=== PATIENT | female | born 1935 | race Caucasian/White ===

== ENCOUNTER 2017-10-01 19:52 | Emergency (ER) | payer MEDICARE, BC, SELFPAY ==
[2017-10-01] VITALS (8 sets, daily range): BP systolic 72–140; BP diastolic 38–85; PULSE 64–85; RESP 14–17; TEMP 35.7; O2SAT 93–96; BMI 20.9
[2017-10-01] MEDS: 0.9% Normal Saline 1,000 ML 1000 ML IV (21:06)
[2017-10-01] MEDS: Cefazolin 1 GM/50 ML BAG IV (21:06)
[2017-10-01] MEDS: Diphth,Pertuss(Acell),Tet Vac 0.5 ML Vial IM (21:09)
[2017-10-01] MEDS: oxyCODONE 5 MG Tablet PO (21:25)
--- NOTE | 2017-10-01 22:49 | ED.VISSUMM ---
- ER Visit Summary Date of Service: 10/01/17 Chief Complaint: Right forearm laceration History of Present Illness: The patient is a 81 F, [id number], who sustained a skin tear/laceration to her right forearm on a shoebox in her closet at home. She states that she has very thin skin and is prone to superficial skin tears with very minimal trauma. She was taking off her shoes tonight when she essentially slipped forward and struck her forearm on the corner of a box. She sustained a large full-thickness laceration to her right volar forearm. She denies any other injuries. She did not hit her head or lose consciousness. On arrival, she was somewhat hypotensive but she states that this is from the site of her own blood which makes her feel faint. He denies any chest pain or confusion. This was witnessed and she did not completely fall. Physical Examination: She has no signs of head trauma. Neck is supple. Heart tones are regular and without murmur. Lungs are clear bilaterally. Abdomen is soft and nontender. She has an 18 cm full-thickness laceration on the volar aspect of her right midshaft forearm. The wound edges are somewhat irregular and there is avulsion of some of the skin. I can visualize a few flexor tendons underneath but there is no evidence of flexor tendon laceration and the tendon sheaths appear intact. There is no apparent laceration of the muscle. She has another distinct skin tear approximately 4 cm on the posterior aspect that is superficial. He has a strong distal pulse. No trouble flexing or extending any of her fingers. No coldness in her hand. Normal cap refill distally. Test Results: None performed Emergency Department Course and Treatment: She was given IV fluids here and observed. Her blood pressure returned to normal and remained there for several hours. I discussed the case with Dr. Carl De Oliveira who recommended follow-up with plastics or general surgery. I then discussed the case with Dr. Carey to arrange follow-up for Wednesday at 10 AM in his office for a wound check. I spoke at length with her regarding the high risk nature of this wound. It is fairly large and her skin is quite thin so she is at high risk for infection and/or poor cosmetic outcome. Verbal informed consent was obtained from the patient and her and the decision was made to proceed with irrigation and wound repair here in the emergency department. I instilled approximately 10 cc of lidocaine without epinephrine locally infiltrated. I maintain full sterile precautions and irrigated it over a sterile basin with a full 3 L of sterile normal saline. I examined the wound cavity under direct lighting with good hemostasis and there is no evidence of underlying neurotendinous injury. She still has a normal distal neurovascular examination. With an coding assistant wearing sterile gloves, the wound edges were approximated and I placed approximately 12 horizontal mattress sutures with fairly good alignment of the wound edges. I then placed Steri-Strips over the sutures. I placed Steri-Strips over the other wound on the aspect of her forearm. She was given IV Ancef during this procedure and I will place her on Keflex for at home. On reexamination, she is well appearing and not in any distress. She is not lightheaded at all and her blood pressure is normal. She has no evidence of any other injuries and no bony tenderness of her forearm. The impact was quite mild in nature so I do not feel she needs an x-ray. There is no evidence of foreign body. I instructed her on dressing changes and gave her all the supplies for dressing changes as well as bacitracin to use over the weekend. She will see Dr. Carey Wednesday but she was given strict instructions to return back to the emergency department if she develops any increased pain, paresthesias, wound drainage, redness, fever, or any other signs of infection/neurovascular compromise. Treatment Plan: See Dr. Carey Wednesday Disposition: Home stable condition Impression: Initial encounter for complex 18 cm right forearm laceration This note was generated with Nabto dictation software. It may contain incorrect words, spelling, and punctuation that were not noted in review of the chart prior to signing ED Disposition - Plan for ED Patient: Chief Complaint: Fall Instructions: ED Laceration All Prescriptions: Hydrocodone Bitart/Apap 5-325 [[place] 5/325] 1 tablet PO Q6H PRN PRN 3 Days #12 tablet PRN Reason: Pain Cephalexin [Keflex] 500 mg PO Q6 7 Days #40 capsule Referrals: Clive Martinez MD [STAFF PHYSICIAN] - 10/04/17 10:00 am
--- NOTE | 2017-10-01 22:54 | ED.DCSUM_ITS ---
- ER Visit Summary Date of Service: 10/01/17 Chief Complaint: Right forearm laceration History of Present Illness: The patient is a 81 F, [id number], who sustained a skin tear/laceration to her right forearm on a shoebox in her closet at home. She states that she has very thin skin and is prone to superficial skin tears with very minimal trauma. She was taking off her shoes tonight when she essentially slipped forward and struck her forearm on the corner of a box. She sustained a large full-thickness laceration to her right volar forearm. She denies any other injuries. She did not hit her head or lose consciousness. On arrival, she was somewhat hypotensive but she states that this is from the site of her own blood which makes her feel faint. He denies any chest pain or confusion. This was witnessed and she did not completely fall. Physical Examination: She has no signs of head trauma. Neck is supple. Heart tones are regular and without murmur. Lungs are clear bilaterally. Abdomen is soft and nontender. She has an 18 cm full-thickness laceration on the volar aspect of her right midshaft forearm. The wound edges are somewhat irregular and there is avulsion of some of the skin. I can visualize a few flexor tendons underneath but there is no evidence of flexor tendon laceration and the tendon sheaths appear intact. There is no apparent laceration of the muscle. She has another distinct skin tear approximately 4 cm on the posterior aspect that is superficial. He has a strong distal pulse. No trouble flexing or extending any of her fingers. No coldness in her hand. Normal cap refill distally. Test Results: None performed Emergency Department Course and Treatment: She was given IV fluids here and observed. Her blood pressure returned to normal and remained there for several hours. I discussed the case with Dr. Carl De Oliveira who recommended follow-up with plastics or general surgery. I then discussed the case with Dr. Carey to arrange follow-up for Wednesday at 10 AM in his office for a wound check. I spoke at length with her regarding the high risk nature of this wound. It is fairly large and her skin is quite thin so she is at high risk for infection and /or poor cosmetic outcome. Verbal informed consent was obtained from the patient and her and the decision was made to proceed with irrigation and wound repair here in the emergency department. I instilled approximately 10 cc of lidocaine without epinephrine locally infiltrated. I maintain full sterile precautions and irrigated it over a sterile basin with a full 3 L of sterile normal saline. I examined the wound cavity under direct lighting with good hemostasis and there is no evidence of underlying neurotendinous injury. She still has a normal distal neurovascular examination. With an bar assistant wearing sterile gloves, the wound edges were approximated and I placed approximately 12 horizontal mattress sutures with fairly good alignment of the wound edges. I then placed Steri-Strips over the sutures. I placed Steri- Strips over the other wound on the aspect of her forearm. She was given IV Ancef during this procedure and I will place her on Keflex for at home. On reexamination, she is well appearing and not in any distress. She is not lightheaded at all and her blood pressure is normal. She has no evidence of any other injuries and no bony tenderness of her forearm. The impact was quite mild in nature so I do not feel she needs an x-ray. There is no evidence of foreign body. I instructed her on dressing changes and gave her all the supplies for dressing changes as well as bacitracin to use over the weekend. She will see Dr. Carey Wednesday but she was given strict instructions to return back to the emergency department if she develops any increased pain, paresthesias, wound drainage, redness, fever, or any other signs of infection/ neurovascular compromise. Treatment Plan: See Dr. Carey Wednesday Disposition: Home stable condition Impression: Initial encounter for complex 18 cm right forearm laceration This note was generated with Nanapi dictation software. It may contain incorrect words, spelling, and punctuation that were not noted in review of the chart prior to signing ED Disposition - Plan for ED Patient: Chief Complaint: Fall Instructions: ED Laceration All Prescriptions: Hydrocodone Bitart/Apap 5-325 [[place] 5/325] 1 tablet PO Q6H PRN PRN 3 Days #12 tablet PRN Reason: Pain Cephalexin [Keflex] 500 mg PO Q6 7 Days #40 capsule Referrals: Clive Martinez MD [STAFF PHYSICIAN] - 10/04/17 10:00 am
== END 2017-10-01 23:42 | disposition home or self-care (01) ==
LOC: ED 20:23
PROVIDERS: Emergency Provider Emergency Medicine; Family Provider Family Medicine; PCP Family Medicine
DX: S51.811A Laceration without foreign body of right forearm, initial encounter (principal); Z79.82 Long term (current) use of aspirin; Z79.899 Other long term (current) drug therapy; W01.118A Fall on same level from slipping, tripping and stumbling with subsequent striking against other sharp object, initial encounter; Y93.89 Activity, other specified; Y92.003 Bedroom of unspecified non-institutional (private) residence as the place of occurrence of the external cause; Y99.8 Other external cause status
CPT/HCPCS: 12005; 90715; 96361; 96365; 99284; J7030; A4216

== ENCOUNTER 2017-11-09 13:15 | Emergency (ER) | payer MEDICARE, BC, SELFPAY ==
--- NOTE | 2017-11-09 13:15 | DT_ITS ---
This patient was seen during an EMR downtime November 08, 2017 - November 15, 2017. This patient may have a combination of paper and electronic documentation or all paper documentation. All documentation is viewable within the e-chart portion of [employer] for each patient visit.
--- NOTE | 2017-11-09 13:40 | CT_ITS ---
STUDY: CT BRAIN WITHOUT CONTRAST REASON FOR EXAM: Female, 81 years old. Mental status change. RADIATION DOSAGE (If Supplied By Facility): CTDIvol = ( 60.81 ) mGy, DLP = ( 1067.08 ) mGycm TECHNIQUE: Transaxial CT imaging of the brain was performed without administration of intravenous contrast material. Individualized dose optimization techniques were used for this CT. COMPARISON: 05/03/2017. FINDINGS: Normal soft tissue structures. Normal calvarium. There is mild cerebral atrophy with widening of the extra-axial spaces and ventricular dilatation. There are areas of decreased attenuation within the white matter tracts of the supratentorial brain, consistent with microvascular disease changes. There are small punctate calcifications of the basal ganglia which are seen in the aging brain as a normal variant. Normal brainstem. There is mild cerebellar atrophy. There is no intracranial hemorrhage. There are no findings of an acute ischemic infarction. Normal visualized paranasal sinuses. CT/Brain/Head without Contrast IMPRESSION: No change. No acute abnormality. Mild atrophy and White matter disease. Electronically Signed: Trell Flores MD at 21:41 EDT , Service support ,
[2017-11-12 10:06] LABS: BUN 11 mg/dL (7-18); Creatinine, Serum 0.92 mg/dL (0.55-1.02); EST Glomerular Filtration Rate 63 mL/min (>60); Est Glom Filt Rate - Afr Amer 76 mL/min (>60); Glucose 155 mg/dL (74-106); Sodium Level 134 mmol/L (136-145)
[2017-11-12 10:07] LABS: Anion Gap 6 (5-15); Chloride 101 mmol/L (98-107); Potassium 3.6 mmol/L (3.5-5.1)
[2017-11-12 12:06] LABS: Absolute Lymphocyte Count 1.88 X10^3/ul (0.83-4.51); Absolute Neutrophil Count 3.6 X10^3/uL (2.0-7.7); Basophil% 0.3 % (0-1); Hematocrit 36.1 % (37-47); Hemoglobin 11.7 g/dl (12.0-15.0); Lymphocyte # 1.88 X10^3/ul (4.0); Lymphocyte % 30.1 % (19-41); Mean Corp Hgb Conc 32.4 g/gl (32-36); Mean Corpuscular Volume 92.6 fL (81-99); Mean Platelet Vol. 10.2 fl (6.2-12.0); Monocyte% 7.1 % (0-10); Neutrophil # 3.63 X10^3/uL (2.7-7.7); Neutrophil % 58.2 % (47-70); POSITIVE COUNT NO; POSITIVE DIFFERENTIAL NO; POSITIVE MORPHOLOGY NO; Platelet Count 275 K/mm3 (150-450); RBC Distribution Width CV 14.7 % (11.6-14.6); RBC Distribution Width SD 48.7 fl (35.1-43.9); White Blood Count 6.2 K/mm3 (4.4-11.0)
[2017-11-12 12:07] LABS: Basophil# 0.02 X10^3/uL; Eosinophil# 0.25 X10^3/uL; Monocyte# 0.44 X10^3/uL
== END 2017-11-09 15:25 | disposition home or self-care (01) ==
LOC: ED 11-11 13:12
PROVIDERS: Emergency Medicine; Emergency Provider Emergency Medicine; Family Provider Family Medicine; PCP Family Medicine
DX: R42 Dizziness and giddiness (principal); I10 Essential (primary) hypertension
CPT/HCPCS: 70450; 80048; 85025; 99284; A4216

== ENCOUNTER → 2017-12-07 10:04 | Outpatient (CLI) | payer MEDICARE, BC, SELFPAY ==
[2017-12-07 12:18] LABS: Anion Gap 12 (5-15); Chloride 101 mmol/L (98-107); Potassium 4.4 mmol/L (3.5-5.1); Sodium Level 137 mmol/L (136-145); Thyroid Stim Hormone (TSH) 1.46 uIU/mL (0.358-3.74)
[2017-12-08 09:38] LABS: Vitamin B12 946 pg/mL (211-911)
[2017-12-10 05:02] LABS: Rapid Plasmin Reagin (RPR) NONREACTIVE (NONREACTIVE)
== END ==
PROVIDERS: Family Provider Family Medicine; PCP Family Medicine; Visit Provider Psychiatry & Neurology Neurology
DX: R41.3 Other amnesia (principal)
CPT/HCPCS: 36415; 80051; 82607; 84443; 86592

== ENCOUNTER → 2017-12-20 07:21 | Outpatient (CLI) | payer MEDICARE, BC, SELFPAY ==
--- NOTE | 2017-12-20 07:00 | PET_ITS ---
EXAMINATION: FDG PET BRAIN INDICATIONS: A 81-year-old female with reported history of cognitive impairment, memory loss. COMPARISON EXAMINATION: CT of the brain report dated 11/09/17. TECHNIQUE: Following the intravenous administration of 9.78 mCi of F-18 deoxyglucose via the left forearm, multiplanar image acquisitions of the brain obtained at 60 minutes post radiopharmaceutical administration reveal: SERUM GLUCOSE LEVEL: 106 mg/dl. HEIGHT: 63 inches. WEIGHT: 150 lbs FINDINGS: 1. There is relatively symmetric and preserved glucose metabolism defined in the bilateral frontal, temporal, occipital and parietals of the cerebral cortex. There is symmetric visualization of the basal ganglia and cerebellar hemispheres. PET/PET Brain Metabolic Eval IMPRESSION: 1. NEGATIVE EXAMINATION. There is no definitive scintigraphic evidence of altered glucose metabolism on meticulous inspection of the cerebral cortical and subcortical structures as defined above. There is no current visualized cholinergic dysfunction indicative of dementia, Alzheimer type on the present evaluation. Electronic Signature Clive Wu D.O. Electronically Signed: Clive Wu DO at 23:34 EDT Tel , Service support ,
== END ==
PROVIDERS: Family Provider Family Medicine; PCP Family Medicine; Visit Provider Psychiatry & Neurology Neurology
DX: F03.90 Unspecified dementia, unspecified severity, without behavioral disturbance, psychotic disturbance, mood disturbance, and anxiety (principal); R41.3 Other amnesia
CPT/HCPCS: 78608; A9552; A4216

== ENCOUNTER → 2018-09-07 11:59 | Outpatient (CLI) | payer MEDICARE, BC, SELFPAY ==
[2018-09-07 13:57] LABS: Absolute Lymphocyte Count 2.23 X10^3/ul (0.83-4.51); Absolute Neutrophil Count 3.4 X10^3/uL (2.0-7.7); Basophil# 0.03 X10^3/uL; Basophil% 0.5 % (0-1); Eosinophil# 0.21 X10^3/uL; Eosinophils% 3.3 % (0-5); Hematocrit 37.8 % (37-47); Hemoglobin 12.4 g/dl (12.0-15.0); Lymphocyte # 2.23 X10^3/ul (4.0); Lymphocyte % 34.6 % (19-41); Mean Corp Hgb Conc 32.8 g/gl (32-36); Mean Corpuscular Volume 91.3 fL (81-99); Mean Platelet Vol. 10.8 fl (6.2-12.0); Monocyte# 0.53 X10^3/uL; Monocyte% 8.2 % (0-10); Neutrophil # 3.43 X10^3/uL (2.7-7.7); Neutrophil % 53.1 % (47-70); POSITIVE COUNT NO; POSITIVE DIFFERENTIAL NO; POSITIVE MORPHOLOGY NO; Platelet Count 286 K/mm3 (150-450); RBC Distribution Width CV 15.4 % (11.6-14.6); RBC Distribution Width SD 50.8 fl (35.1-43.9); Red Blood Count 4.14 M/mm3 (4.2-5.4); White Blood Count 6.5 K/mm3 (4.4-11.0)
[2018-09-07 14:09] LABS: AST(SGOT) 26 U/L (15-37); Alanine Aminotransfer ALT/SGPT 29 U/L (13-56); Albumin, Serum 3.9 g/dL (3.2-5.0); Alkaline Phosphatase 79 U/L (45-117); Anion Gap 6 (5-15); BUN 14 mg/dL (7-18); BUN/Creat Ratio 16.3 RATIO (10-20); Calcium,Total 8.8 mg/dL (8.5-10.1); Chloride 102 mmol/L (98-107); Creatinine, Serum 0.86 mg/dL (0.55-1.02); EST Glomerular Filtration Rate 68 mL/min (>60); Est Glom Filt Rate - Afr Amer 82 mL/min (>60); Globulin 3.9 g/dL (2.2-4.2); Glucose 92 mg/dL (74-106); Potassium 4.5 mmol/L (3.5-5.1); Protein, Total 7.8 g/dL (6.4-8.2); Sodium Level 133 mmol/L (136-145); Thyroid Stim Hormone (TSH) 1.46 uIU/mL (0.358-3.74)
[2018-09-07 14:18] LABS: Vitamin D,25 Hydroxy 30.9 ng/mL (29.95-100.01)
== END ==
PROVIDERS: Visit Provider Family Medicine Geriatric Medicine
DX: I10 Essential (primary) hypertension (principal); E55.9 Vitamin D deficiency, unspecified
CPT/HCPCS: 36415; 80053; 82306; 84443; 85025

== ENCOUNTER → 2018-12-26 | Outpatient (CLI) | payer MEDICARE, BC, SELFPAY ==
[2018-12-26 12:26] LABS: Absolute Lymphocyte Count 1.92 X10^3/uL (0.83-4.51); Basophil# 0.04 X10^3/uL; Basophil% 0.5 % (0-1); Eosinophil# 0.21 X10^3/uL; Eosinophils% 2.4 % (0-5); Hematocrit 36.2 % (37-47); Hemoglobin 11.8 g/dL (12.0-15.0); Lymphocyte # 1.92 X10^3/ul (4.0); Lymphocyte % 21.7 % (19-41); Mean Corp Hgb Conc 32.6 g/dL (32-36); Mean Corpuscular Hgb 29.7 pg (27.0-32.0); Mean Corpuscular Volume 91.2 fL (81-99); Mean Platelet Vol. 10.2 fl (6.2-12.0); Monocyte# 0.62 X10^3/uL; NRBC Flagged by Analyzer 0 % (0-5); Neutrophil # 6.01 X10^3/uL (2.7-7.7); Neutrophil % 67.8 % (47-70); Platelet Count 291 K/mm3 (150-450); RBC Distribution Width CV 15.1 % (11.6-14.6); RBC Distribution Width SD 50.2 fl (35.1-43.9); Red Blood Count 3.97 M/mm3 (4.2-5.4); White Blood Count 8.9 K/mm3 (4.4-11.0)
[2018-12-26 12:52] LABS: Vitamin D,25 Hydroxy 19.4 ng/mL (29.95-100.01)
[2018-12-26 13:07] LABS: ALB/GLOB Ratio 0.8 RATIO (0.9-2.4); AST(SGOT) 18 U/L (15-37); Alanine Aminotransfer ALT/SGPT 26 U/L (13-56); Albumin, Serum 3.5 g/dL (3.2-5.0); Alkaline Phosphatase 91 U/L (45-117); Anion Gap 10 (5-15); BUN 13 mg/dL (7-18); BUN/Creat Ratio 15.6 RATIO (10-20); Chloride 102 mmol/L (98-107); Cholesterol 239 mg/dL (200); Creatinine, Serum 0.83 mg/dL (0.55-1.02); EST Glomerular Filtration Rate 70 mL/min (>60); Est Glom Filt Rate - Afr Amer 85 mL/min (>60); Globulin 4.2 g/dL (2.2-4.2); Glucose 82 mg/dL (74-106); High Density Lipoprotein 55 mg/dL; Potassium 4.2 mmol/L (3.5-5.1); Protein, Total 7.7 g/dL (6.4-8.2); Sodium Level 138 mmol/L (136-145); Thyroid Stim Hormone (TSH) 1.84 uIU/mL (0.358-3.74); Triglycerides 334 mg/dL; Very Low Density Lipoprotein 67 mg/dL (5-40)
== END | disposition home or self-care (01) ==
LOC: POLAB3 09:33
PROVIDERS: Visit Provider Family Medicine Geriatric Medicine
DX: E55.9 Vitamin D deficiency, unspecified (principal); I10 Essential (primary) hypertension; E78.49 Other hyperlipidemia
CPT/HCPCS: 36415; 80053; 80061; 82306; 84443; 85025

== ENCOUNTER → 2019-02-16 | Outpatient (CLI) | payer MEDICARE, BC, SELFPAY ==
--- NOTE | 2019-02-16 09:45 | RAD_ITS ---
STUDY: X-RAY - ABDOMEN/PELVIS REASON FOR EXAM: Female, 83 years old. Abdominal pain. Diarrhea. TECHNIQUE: AP supine and upright views of the abdomen and pelvis. COMPARISON: None. FINDINGS: Findings incomplete with mild degree of scarring at the lung bases. There is a moderate amount of colonic fecal material. There is no demonstrated free abdominal air. The visualized liver, spleen and kidneys are grossly normal in size and morphology. Normal soft tissue structures. There are diffuse degenerative changes of the visualized lumbar spine. RAD/Abd Inc Decub and/or Erect IMPRESSION: Moderate amount of fecal material is seen in the colon. Electronically Signed: Tim Ortega, at 14:14 EDT , Service support ,
== END | disposition home or self-care (01) ==
PROVIDERS: Family Provider Family Medicine Geriatric Medicine; PCP Family Medicine Geriatric Medicine; Referring Provider Family Medicine Geriatric Medicine; Visit Provider Family Medicine Geriatric Medicine
DX: K56.41 Fecal impaction (principal)
CPT/HCPCS: 74019

== ENCOUNTER → 2019-03-27 | Outpatient (CLI) | payer MEDICARE, BC, SELFPAY ==
[2019-03-27 12:32] LABS: Absolute Lymphocyte Count 1.85 X10^3/uL (0.83-4.51); Absolute Neutrophil Count 3.6 X10^3/uL (2.0-7.7); Basophil# 0.05 X10^3/uL; Basophil% 0.8 % (0-1); Eosinophil# 0.17 X10^3/uL; Eosinophils% 2.8 % (0-5); Hematocrit 36.6 % (37-47); Hemoglobin 11.6 g/dL (12.0-15.0); Lymphocyte # 1.85 X10^3/ul (4.0); Lymphocyte % 29.9 % (19-41); Mean Corp Hgb Conc 31.7 g/dL (32-36); Mean Corpuscular Hgb 28.6 pg (27.0-32.0); Mean Corpuscular Volume 90.1 fL (81-99); Mean Platelet Vol. 10.8 fl (6.2-12.0); Monocyte# 0.53 X10^3/uL; Monocyte% 8.6 % (0-10); NRBC Flagged by Analyzer 0 % (0-5); Neutrophil # 3.56 X10^3/uL (2.7-7.7); Neutrophil % 57.6 % (47-70); Platelet Count 237 K/mm3 (150-450); RBC Distribution Width CV 15.2 % (11.6-14.6); RBC Distribution Width SD 50.7 fl (35.1-43.9); Red Blood Count 4.06 M/mm3 (4.2-5.4); White Blood Count 6.2 K/mm3 (4.4-11.0)
[2019-03-27 13:06] LABS: Vitamin D,25 Hydroxy 21.6 ng/mL (29.95-100.01)
[2019-03-27 13:15] LABS: AST(SGOT) 23 U/L (15-37); Alanine Aminotransfer ALT/SGPT 22 U/L (13-56); Albumin, Serum 3.8 g/dL (3.2-5.0); Alkaline Phosphatase 90 U/L (45-117); Anion Gap 8 (5-15); BUN 12 mg/dL (7-18); BUN/Creat Ratio 14.7 RATIO (10-20); Calcium,Total 9.8 mg/dL (8.5-10.1); Chloride 104 mmol/L (98-107); Creatinine, Serum 0.82 mg/dL (0.55-1.02); EST Glomerular Filtration Rate 71 mL/min (>60); Est Glom Filt Rate - Afr Amer 86 mL/min (>60); Globulin 3.8 g/dL (2.2-4.2); Glucose 94 mg/dL (74-106); Potassium 4.2 mmol/L (3.5-5.1); Protein, Total 7.6 g/dL (6.4-8.2); Sodium Level 136 mmol/L (136-145); Thyroid Stim Hormone (TSH) 1.49 uIU/mL (0.358-3.74)
== END | disposition home or self-care (01) ==
LOC: POLAB3 11:37
PROVIDERS: Family Provider Family Medicine Geriatric Medicine; PCP Family Medicine Geriatric Medicine; Visit Provider Family Medicine Geriatric Medicine
DX: E55.9 Vitamin D deficiency, unspecified (principal); I10 Essential (primary) hypertension
CPT/HCPCS: 36415; 80053; 82306; 84443; 85025

== ENCOUNTER 2019-06-28 03:54 | Inpatient (IN) | payer MEDICARE, BC, SELFPAY ==
[2019-06-28] VITALS (21 sets, daily range): BP systolic 117–185; BP diastolic 55–91; PULSE 72–89; RESP 16–18; TEMP 36.4–37.6; O2SAT 92–98; BMI 27.6; BMI 25.8
--- NOTE | 2019-06-28 | GALL_PTH ---
PATIENT: TATA SETHI LOC: MS3 U#:[id number] AGE/SX: 83/F [place] [facility] [place]: Dr. Gabe Sotelo DO : 1935 BED: 1 DIS: 06/30/2019 SPEC #: [id number] RECD: 06/28/19 12:59 STATUS: LORA RERegi #: [id number] CHUCK: 06/28/19 00:[address]: Baldo Feliz DEPT: SURGICAL PATHOLOGY RECD BY: Anay Rosas ENTERED: 06/28/19 14:15 SP TYPE: MILDRED MACARIO DR: DO Dr. Akbar Lawrence MD Dr. Mark Elderbrock, MD Tissues: Gallbladder, NOS Procedures: Surgery Specimen Level III HEADER OPERATION: Laparoscopic cholecystectomy with IOC PRE-OP DIAGNOSIS: Acute cholecystitis TISSUE SUBMITTED: Gallbladder MICROSCOPIC DIAGNOSIS Gallbladder, cholecystectomy: Acute and chronic hemorrhagic and ulcerated cholecystitis and cholelithiasis. Reactive epithelial changes. SJ:ahsan 06/29/19 MICROSCOPIC DESCRIPTION Slides are reviewed. GROSS DESCRIPTION Received is one container labeled with the patient's name and designated gallbladder. The specimen consists of a gallbladder measuring 9 x 4 x 2.5 cm. The external surface is smooth and glistening. Focally, it is granular, hemorrhagic and contains cautery artifact. The lumen of the gallbladder contains reddish mucoid bile and multiple yellow calculi and fragments of calculi ranging in size from 0.5 to 1 cm. The mucosa is bile-stained and without any mass lesions. The gallbladder wall averages 0.3 cm in thickness and is free of mass lesions. Hearing Screener sections of the gallbladder and the cystic duct at margin of resection are submitted in one cassette. / AM:ahsan 06/28/19 TC:2 CPT: 72478
--- NOTE | 2019-06-28 04:16 | EKG12_ITS ---
Test Reason : ABD PAIN Blood Pressure : / mmHG Vent. Rate : 069 BPM Atrial Rate : 069 BPM P-R Int : 156 ms QRS Dur : 084 ms QT Int : 408 ms P-R-T Axes : 075 031 054 degrees QTc Int : 437 ms Sinus rhythm with Premature atrial complexes Otherwise normal ECG Confirmed by NIMA FRAIRE, FROY ([id number]), video editor LOAN SILVA ([id number]) on 06/30/2019 2:28:43 PM Referred By: OBINNA Confirmed By:TONY HERRING MD
--- NOTE | 2019-06-28 04:16 | CT_ITS ---
STUDY: CT ABDOMEN AND PELVIS WITH CONTRAST REASON FOR EXAM: Female, 83 years old. Mid abdominal pain with emesis. RADIATION DOSAGE (If Supplied By Facility): CTDIvol = ( 15.78 ) mGy, DLP = ( 683.93 ) mGycm TECHNIQUE: Transaxial images were obtained from the dome of the diaphragm to the symphysis pubis without oral contrast. IV 100mL Isovue-370 was administered. Sagittal and coronal images were reconstructed. Individualized dose optimization techniques were used for this CT. COMPARISON: None. FINDINGS: The visualized lung bases are unremarkable. The visualized portions of the heart are within normal limits. Small hiatal hernia. Normal liver. There is borderline gallbladder distention. Normal spleen. Normal pancreas. Normal bilateral adrenal glands. Normal right kidney. Normal left kidney. Normal visualized stomach. Normal small intestine. Questionable wall thickening involving the ascending colon, transversely oriented in the right lower abdomen coronal image 38 series 601. Cecum is more anterior filled with air coronal image 23 series 601. Diverticulosis involving the descending and sigmoid colon with most prominent involvement of the sigmoid colon. The appendix is visualized and appears normal. There is diffuse atherosclerotic calcification of the abdominal aorta, without a demonstrated aneurysm. Normal inferior vena cava. Normal retroperitoneum. No intra-abdominal free air. Normal urinary bladder. Uterus grossly normal. 4.9 x 3.9 cm simple left ovarian cyst. Normal abdominal wall. Mild anterolisthesis L5 on S1. Disc space narrowing and vacuum disc L4-L5 and L5-S1. CT/Abdomen/Pelvis W IV Cont ONLY IMPRESSION: Possible colitis involving the ascending colon which is transversely oriented in the right abdomen. Small hiatal hernia. Borderline gallbladder distention. Left-sided colonic diverticulosis with most prominent involvement of the sigmoid colon. 4.9 cm simple left ovarian cyst probably representing an atypical physiologic cyst or a benign ovarian neoplasm. This can be followed with pelvic ultrasound. Electronically Signed: Oc Hernandez MD at 5:46 EST , Service support ,
[2019-06-28] MEDS: Morphine 4 MG/ML Syringe IV ×3 (04:27→20:57)
[2019-06-28] MEDS: Ondansetron 4 MG/2 ML Vial IV ×2 (04:27→09:08)
[2019-06-28 04:31] LABS: Absolute Lymphocyte Count 1.57 X10^3/uL (0.83-4.51); Absolute Neutrophil Count 11.5 X10^3/uL (2.0-7.7); Basophil# 0.03 X10^3/uL; Basophil% 0.2 % (0-1); Eosinophil# 0.05 X10^3/uL; Eosinophils% 0.4 % (0-5); Hematocrit 36.2 % (37-47); Hemoglobin 11.6 g/dL (12.0-15.0); Lymphocyte # 1.57 X10^3/ul (4.0); Lymphocyte % 11.1 % (19-41); Mean Corpuscular Hgb 28.2 pg (27.0-32.0); Mean Corpuscular Volume 88.1 fL (81-99); Mean Platelet Vol. 11.3 fl (6.2-12.0); Monocyte# 0.93 X10^3/uL; Monocyte% 6.6 % (0-10); NRBC Flagged by Analyzer 0 % (0-5); Neutrophil # 11.51 X10^3/uL (2.7-7.7); Neutrophil % 81.4 % (47-70); Platelet Count 239 K/mm3 (150-450); RBC Distribution Width CV 15.5 % (11.6-14.6); RBC Distribution Width SD 50.4 fl (35.1-43.9); Red Blood Count 4.11 M/mm3 (4.2-5.4); White Blood Count 14.1 K/mm3 (4.4-11.0)
[2019-06-28 04:54] LABS: ALB/GLOB Ratio 0.9 RATIO (0.9-2.4); AST(SGOT) 24 U/L (15-37); Alanine Aminotransfer ALT/SGPT 25 U/L (13-56); Albumin, Serum 3.9 g/dL (3.2-5.0); Alkaline Phosphatase 96 U/L (45-117); Anion Gap 7 (5-15); BUN 12 mg/dL (7-18); BUN/Creat Ratio 12.2 RATIO (10-20); Calcium,Total 9.6 mg/dL (8.5-10.1); Chloride 96 mmol/L (98-107); Creatinine, Serum 0.98 mg/dL (0.55-1.02); EST Glomerular Filtration Rate 58 mL/min (>60); Est Glom Filt Rate - Afr Amer 70 mL/min (>60); Estimated Creatinine Clearance 35.61 ml/min; Globulin 4.3 g/dL (2.2-4.2); Glucose 135 mg/dL (74-106); Lipase 155 U/L (73-393); Potassium 3.9 mmol/L (3.5-5.1); Protein, Total 8.2 g/dL (6.4-8.2); Sodium Level 131 mmol/L (136-145)
[2019-06-28 04:56] LABS: Bacteria 0 SEEN /hpf (None Seen); Mucous, Urine 0 SEEN /hpf (<or=2+); Squamous Epithelial Cells - UA 0 SEEN /hpf (5-10); White Blood Cells 0 SEEN /hpf (0-5)
[2019-06-28 05:00] LABS: Lactic Acid 2.2 mmol/L (0.4-1.9)
--- NOTE | 2019-06-28 05:04 | ED.VIS.GI ---
History of Present Illness Chief Complaint: Abd Pain Informant: Patient, Significant Other - Abdominal Pain/Flank Pain Onset: Yesterday Context: Gradual Onset Timing: Continuous Location: Epigastric - Nausea/Vomiting/Emesis GI Symptom: Nausea, Vomiting - x2 Quality: - - black - Diarrhea/Melena/Hematochezia GI Symptom: - - Formed BM Stool Quality: Black Narrative: Patient is an 83-year-old female presenting with abdominal pain. Patient states she developed epigastric abdominal pain this evening, about 10 hours prior to arrival. She states it radiates to her back. Pain is been constant. She has associated nausea and 2 episodes of vomiting. She states she threw up black looking liquid. She notes that today she had normal bowel movement but it was also black. She has been taking Pepto-Bismol as well as stewed prunes because she thought she was constipated. She denies any urinary symptoms. She denies any fever, chest pain, shortness of breath or difficulty breathing. She states she never had pain like this before. Past Medical History - Allergies and Home Meds Allergies/Adverse Reactions: Allergies hydrochlorothiazide Allergy (Verified 10/01/17 19:52) Unknown nitrofurantoin [Nitrofurantoin] Allergy (Verified 10/01/17 19:52) Unknown NSAIDS (Non-Steroidal Anti-Inflamma Allergy (Verified 10/01/17 19:52) Unknown oxaprozin [From Daypro] Allergy (Verified 10/01/17 19:52) Unknown rofecoxib [From Vioxx] Allergy (Verified 10/01/17 19:52) Unknown Sulfa (Sulfonamide Antibiotics) Allergy (Verified 10/01/17 19:52) Hives Past Medical History: - - Hypertension, depression Surgical History: appendectomy Lives: Spouse/ Significant Other Smoking Status: Former smoker Review of Systems General: Denies: Chills, Fever, Sweats Eyes: Denies: Visual changes - bilaterally, Diplopia ENT: Denies: Rhinorrhea, Sore throat Cardiovascular: Denies: Chest pain, Palpitations Respiratory: Denies: Dyspnea, Cough, Dyspnea on exertion Gastrointestinal: Reports: Abdominal pain, Nausea, Vomiting, Melena. Denies: Diarrhea, Hematochezia Genitourinary: Denies: Dysuria, Hematuria, Frequency Musculoskeletal: Reports: Back pain. Denies: Extremity Pain Skin: Denies: Rash, Wounds Neurological: Denies: Headache, Weakness, Numbness Physical Exam Vital Signs/Narrative: Vital Signs Temp Pulse Resp BP Pulse Ox 06/28/19 04:06 158/91 H 06/28/19 03:55 98.5 F 72 16 185/87 H 97 Inital Vital Signs reviewed: Yes General: Well nourished, Well developed, No Acute Distress Head: Normocephalic, Atraumatic Eyes: Perrl, EOMI ENT: Moist mucous membranes, No rhinorrhea Neck: Supple, Nontender Cardiovascular: Regular rate, Regular rhythm, No murmurs Respiratory: No distress, CTA bilaterally, Chest nontender Abdomen: Soft, Nondistended, Normal bowel sounds, Tender - Epigastric and periumbilical region. Negative for: No masses, Guarding, Rebound tenderness Back: Nontender, Normal Inspection Extremities: Nontender, No edema Skin: Normal color, No rash Neurological: Alert, Cranial nerves II-XII grossly intact, Normal Strength, Normal Sensation, Confused - A&O x2 Psychological: Normal affect, Normal Mood Diagnostic/Tx/Re-eval Clinical Impression(s) from Imaging Studies Abdomen/Pelvis CT 06/28/19 04:16 IMPRESSION: Possible colitis involving the ascending colon which is transversely oriented in the right abdomen. Small hiatal hernia. Borderline gallbladder distention. Left-sided colonic diverticulosis with most prominent involvement of the sigmoid colon. 4.9 cm simple left ovarian cyst probably representing an atypical physiologic cyst or a benign ovarian neoplasm. This can be followed with pelvic ultrasound. Electronically Signed: Oc Hernandez MD at 5:46 EST , Service support , Laboratory Data 06/28/19 06/28/19 06/28/19 04:00 04:00 04:00 WBC 14.1 H RBC 4.11 L Hgb 11.6 L Hct 36.2 L MCV 88.1 MCH 28.2 MCHC 32.0 RDW Std Deviation 50.4 H RDW Coeff of Jitendra 15.5 H Plt Count 239 MPV 11.3 Immature Gran % (Auto) 0.300 Neut % (Auto) 81.4 H Lymph % (Auto) 11.1 L [place] % (Auto) 6.6 Eos % (Auto) 0.4 Baso % (Auto) 0.2 Absolute Neuts (auto) 11.5 H Absolute Lymphs (auto) 1.57 Nucleated RBC % 0 Sodium 131 L Potassium 3.9 Chloride 96 L Carbon Dioxide 28.0 Anion Gap 7 BUN 12 Creatinine 0.98 Estim Creat Clear Calc 35.61 Est GFR (MDRD) Af Amer 70 Est GFR (MDRD) Non-Af 58 L BUN/Creatinine Ratio 12.2 Glucose 135 H Lactic Acid 2.2 H* Calcium 9.6 Total Bilirubin 0.50 AST 24 ALT 25 Alkaline Phosphatase 96 Troponin I < 0.015 Total Protein 8.2 Albumin 3.9 Globulin 4.3 H Albumin/Globulin Ratio 0.9 Lipase 155 Urine Color Urine Clarity Urine pH Ur Specific [place] Urine Protein Urine Glucose (UA) Urine Ketones Urine Occult Blood Urine Nitrite Urine Bilirubin Urine Urobilinogen Ur Leukocyte Esterase Urine RBC Urine WBC Ur Squamous Epith Cells Amorphous Sediment Urine Bacteria Urine Mucus 06/28/19 04:50 WBC RBC Hgb Hct MCV MCH MCHC RDW Std Deviation RDW Coeff of Jitendra Plt Count MPV Immature Gran % (Auto) Neut % (Auto) Lymph % (Auto) [place] % (Auto) Eos % (Auto) Baso % (Auto) Absolute Neuts (auto) Absolute Lymphs (auto) Nucleated RBC % Sodium Potassium Chloride Carbon Dioxide Anion Gap BUN Creatinine Estim Creat Clear Calc Est GFR (MDRD) Af Amer Est GFR (MDRD) Non-Af BUN/Creatinine Ratio Glucose Lactic Acid Calcium Total Bilirubin AST ALT Alkaline Phosphatase Troponin I Total Protein Albumin Globulin Albumin/Globulin Ratio Lipase Urine Color Yellow Urine Clarity Sl. Cloudy Urine pH 8.0 Ur Specific [place] 1.015 Urine Protein Negative Urine Glucose (UA) Normal Urine Ketones Negative Urine Occult Blood 10 H Urine Nitrite Negative Urine Bilirubin Negative Urine Urobilinogen Normal Ur Leukocyte Esterase Negative Urine RBC 0-5 SEEN Urine WBC 0 SEEN Ur Squamous Epith Cells 0 SEEN Amorphous Sediment 2+ Urine Bacteria 0 SEEN Urine Mucus 0 SEEN - Rhythm Strip Rhythm Strip: Sinus Rhythm Rate: 69 Ectopy: None - EKG Initial EKG Interpretation: Sinus Rhythm, - - Sinus rhythm at a rate of [address] segments Normal axis Compared to previous EKG patient has no changes - Medical Decision Making Patient is evaluated for abdominal pain that is been present for a little under 12 hours. She is quite tender in her epigastric and right abdomen. Patient is given IV morphine and Zofran for pain control. She is hemodynamically stable. Patient's lactate is mildly elevated at 2.2. Patient has a leukocytosis of 14.1. Other lab work is all relatively normal. CT abdomen pelvis shows colitis of the ascending colon. Patient was started antibiotics. Differential does include mesenteric ischemia however. Patient will be admitted for further treatment by medicine service. Her CT did show a mildly distended gallbladder. I believe the plan is to have an ultrasound performed when she is on the medical floor. Per request of admitting physician, Dr. Webber, I did discuss with surgeon on-call, Dr. bourgeois for further recommendations in case this is mesenteric ischemia. He did not think CTA was indicated at this time. He recommended starting antibiotics and monitoring from there. Patient and are agreeable with this plan. She is given a second dose of morphine in the emergency room. She is ordered a liter of fluid. She is stable for general medical floor at time of disposition. ED Disposition - Plan for ED Patient: Disposition: [facility] Diagnosis: Acute colitis
[2019-06-28 05:14] LABS: Color, Urine Yellow (Yellow); Glucose, Dipstick Normal (Normal); Ketone-Dipstick Negative (Negative); Leukocyte Esterase-Dipstick Negative /ul (Negative); Nitrite-Dipstick Negative (Negative); Occult Blood-Urine 10 /ul (Negative); Protein-Dipstick Negative (Negative); Specific Gravity, Urine 1.015 (1.002-1.030); Urine Bilirubin Dipstick Negative (Negative); Urine Clarity Sl. Cloudy (Clear); Urine Urobilinogen Normal (Normal)
[2019-06-28 05:31] LABS: Amorphous Sediment 2+; Red Blood Cells-Urine 0-5 SEEN /hpf (0-5)
--- NOTE | 2019-06-28 06:07 | PCM.HP.STD ---
Problem List (1) Abdominal pain Status: Acute History of Present Illness Date of Admission: 06/28/19 Chief Complaint: Abdominal pain The patient is a 83 year old F with a significant history of hypertension who presented to the emergency department with severe abdominal pain that gradually started on the day of presentation. Her pain is located under her umbilicus. The pain radiates to her back. Associated with her symptoms is nausea and vomiting. She had black vomitus and stool. However, she took pepto-bismul and stewed prune. At the emergency department abdomen and pelvis CT was remarkable for possible colitis and borderline gallbladder distention as well as a 4.9 cm simple left ovarian cyst. Emergency department doctor discussed the case with general surgeon. Patient was started on Flagyl and ciprofloxacin and she received IV morphine; and Zofran Past Medical History Medical History: Medical History (Last Updated 06/28/19 @ 07:09 by Akbar Berumen MD) HTN (hypertension) I10 Allergies hydrochlorothiazide Allergy (Verified 10/01/17 19:52) Unknown nitrofurantoin [Nitrofurantoin] Allergy (Verified 10/01/17 19:52) Unknown NSAIDS (Non-Steroidal Anti-Inflamma Allergy (Verified 10/01/17 19:52) Unknown oxaprozin [From Daypro] Allergy (Verified 10/01/17 19:52) Unknown rofecoxib [From Vioxx] Allergy (Verified 10/01/17 19:52) Unknown Sulfa (Sulfonamide Antibiotics) Allergy (Verified 10/01/17 19:52) Hives Home Medications: Ambulatory Orders Medication Instructions Recorded Amlodipine [Norvasc] 2.5 mg PO DAILY 04/07/13 Aspirin [Aspirin, Baby] 81 mg PO DAILY@0800 04/07/13 Desoximetasone 0.25% [Topicort Crm 1 applic TOPICAL BID PRN PRN 04/07/13 0.25%] Fluticasone 0.05% [Flonase Nasal 1 spray NASAL QHS 04/07/13 [place]] Imipramine HCl [Tofranil] 25 mg PO DAILY 04/07/13 Lisinopril [Zestril] 40 mg PO DAILY 04/07/13 Metoprolol(XL)Succ [Toprol Xl] 100 mg PO DAILY 04/07/13 Multivitamins,Therapeutic 1 tablet PO DAILY 04/07/13 [Multivitamin] Cephalexin [Keflex] 500 mg PO Q6 7 Days #40 capsule 10/01/17 Hydrocodone Bitart/Apap 5-325 1 tablet PO Q6H PRN PRN 3 Days #12 10/01/17 [[place] 5/325] tablet Doxepin HCl 1 tab PO QHS 06/28/19 Sertraline HCl 1 mg PO DAILY 06/28/19 Vit C/E/Zn/Coppr/Lutein/Zeaxan 1 ea PO DAILY 06/28/19 [Preservision Areds 2 Softgel] Surgical History: appendectomy Lives: Spouse/ Significant Other Smoking Status: Former smoker Alcohol: None - *Family History Maternal History Items: Unknown Paternal History Items: Heart Disease Review of Systems Constitutional: Denies: Chills, Fever, Weight Change HEENT: Denies: Head Aches, Sinus Congestion, Sinus Drainage Cardiovascular: Denies: Chest Pain, Palpitations Respiratory: Denies: Cough, Shortness of breath at rest, Sputum production Gastrointestinal: Reports: Abdominal Pain, Nausea, Vomiting Genitourinary: Denies: Dysuria Musculoskeletal: Denies: Joint Pain, Joint Tenderness Skin: Denies: Rash, Wounds Neurological: Denies: Numbness, Tingling, Focal weakness Psychiatric: Denies: Anxiety, Depression, Homicidal Ideations, Suicidal Ideations Hematologic/ Lymphatic: Denies: Easy Bruising, Easy Bleeding VTE Information - Inpt Only VTE Present on Admission: No VTE Mechan Device Prophylaxis: SCD's VTE Pharm Prophylaxis ordered?: No Patient Problems: Active and Suspected Problems Acute colitis (Acute) Abdominal pain (Acute) - Physical Exam Vitals/I&O's: Vital Signs Temp Pulse Resp BP Pulse Ox 98.5 F 72 16 158/91 H 97 06/28/19 03:55 06/28/19 03:55 06/28/19 03:55 06/28/19 04:06 06/28/19 03:55 Oxygen Delivery Method Room Air Weight: 68.4 kg Body Mass Index (BMI) 27.6 General: Alert, Oriented x3, - - Patient in excruciating abdominal pain. HEENT: Atraumatic, PERRLA, EOMI, Normocephalic Neck: Supple, No JVD, Negative Carotid Bruits Lungs: Clear to auscultation, Normal air movement Cardiovascular: Regular rate, No murmurs Abdomen: Bowel Sounds Present, Soft, Tender Extremities: No edema, Capillary Refill Less than 3 Seconds Skin: No rashes, No breakdown Musculoskeletal: No Tenderness to Palpation of Joints or Extremities Neurological: Cranial nerves II-XII grossly intact Psych/Mental Status: Normal Affect, Appropriate Microbiology Past 72 Hours 06/28/19 04:47 Stool Stool Occult Blood (CITLALLI) - Final Laboratory Results 06/28/19 04:00: WBC 14.1 H, RBC 4.11 L, Hgb 11.6 L, Hct 36.2 L, MCV 88.1, MCH 28.2, MCHC 32.0, RDW Std Deviation 50.4 H, RDW Coeff of Jitendra 15.5 H, Plt Count 239, MPV 11.3, Immature Gran % (Auto) 0.300, Neut % (Auto) 81.4 H, Lymph % (Auto) 11.1 L, [place] % (Auto) 6.6, Eos % (Auto) 0.4, Baso % (Auto) 0.2, Absolute Neuts (auto) 11.5 H, Absolute Lymphs (auto) 1.57, Nucleated RBC % 0 06/28/19 04:00: Sodium 131 L, Potassium 3.9, Chloride 96 L, Carbon Dioxide 28.0, Anion Gap 7, BUN 12, Creatinine 0.98, Estim Creat Clear Calc 35.61, Est GFR (MDRD) Af Amer 70, Est GFR (MDRD) Non-Af 58 L, BUN/Creatinine Ratio 12.2, Glucose 135 H, Calcium 9.6, Total Bilirubin 0.50, AST 24, ALT 25, Alkaline Phosphatase 96, Troponin I < 0.015, Total Protein 8.2, Albumin 3.9, Globulin 4.3 H, Albumin/Globulin Ratio 0.9, Lipase 155 06/28/19 04:00: Lactic Acid 2.2 H* 06/28/19 04:50: Urine Color Yellow, Urine Clarity Sl. Cloudy, Urine pH 8.0, Ur Specific [place] 1.015, Urine Protein Negative, Urine Glucose (UA) Normal, Urine Ketones Negative, Urine Occult Blood 10 H, Urine Nitrite Negative, Urine Bilirubin Negative, Urine Urobilinogen Normal, Ur Leukocyte Esterase Negative, Urine RBC 0-5 SEEN, Urine WBC 0 SEEN, Ur Squamous Epith Cells 0 SEEN, Amorphous Sediment 2+, Urine Bacteria 0 SEEN, Urine Mucus 0 SEEN Assessment/Plan All Active Problems Acute colitis (Acute) Abdominal pain (Acute) The patient is a 83 year old F with a significant history of hypertension who presented to the emergency department with severe abdominal pain with radiographic evidence of possible colitis; borderline gallbladder distention and ovarian cysts. Acute abdomen Differential diagnosis include colitis and acute cholecystitis. Discussed the case with General Surgeon. Will continue patient on Flagyl and ciprofloxacin that started in the emergency department we will keep patient n.p.o. Morphine IV and Zofran IV ordered. Hold aspirin and all other p.o. medication. Gentle IV hydration. Trend CBC and BMP. Trend lactic acid. Ultrasound of gallbladder ordered by general surgeon. Hypertension On presentation blood pressure was not within goal. Pain could be contributing. Hold home p.o. blood pressure medication. Start patient on scheduled IV Vasotec. PRN labetalol ordered. Ovarian Cyst Consider outpatient evaluation upon discharge. DVT Prophylaxis SCDs Code Visit Inpatient E&M: 35107 Init Hosp L3
--- NOTE | 2019-06-28 06:33 | US_ITS ---
STUDY: ABDOMINAL ULTRASOUND - RIGHT UPPER QUADRANT REASON FOR VISIT: Female, 83 years old RUQ PAIN X 1 DAY TECHNIQUE: Ultrasound evaluation of the right upper quadrant was performed with real-time and static [place]-scale imaging. TECHNICAL QUALITY: Adequate. COMPARISON: None. FINDINGS: Liver: The liver measures 14.1 cm. There is normal echogenicity of the liver. The bile ducts are within normal limits. There is hepatic color flow. The direction of portal flow is hepatopetal. There is no demonstrated mass lesion. Gallbladder: There is a mildly distended gallbladder. The gallbladder wall is thickened and measures 6 mm. There is a positive sonographic Gutiérrez''s sign. There is pericholecystic fluid. There are multiple echogenic structures within the gallbladder, consistent with multiple gallstones. Common Bile Duct (C.B.D.): The common bile duct is slightly dilated and measures 7.7 mm. Pancreas: Normal size of the head, body and tail of the pancreas. There is increased echogenicity of the pancreas. There is no demonstrated pancreatic mass or cyst. Right Kidney: Normal size of the right kidney. The right kidney measures 11.1 cm x 5.8 cm x 4.6 cm. Normal renal cortex. The right cortex measures 1.4 cm. There is no demonstrated renal mass or cyst. There is no right hydronephrosis. US/Abdomen Limited IMPRESSION: Multiple gallstones with a thickened gallbladder wall and a small amount of pericholecystic fluid. Electronically Signed: Tim Ortega, at 8:36 EST , Service support ,
[2019-06-28] MEDS: metroNIDAZOLE 500 MG/100 ML BAG 100 MG IV ×3 (06:41→21:10)
[2019-06-28] MEDS: 0.9% Normal Saline 1,000 ML 999 ML IV (06:41)
[2019-06-28 08:24] LABS: Reflex Lactate? Y
--- NOTE | 2019-06-28 08:45 | RAD_ITS ---
STUDY: X-RAY CHEST REASON FOR EXAM: Female, 83 years old. PRE OP TECHNIQUE: Single AP portable view of the chest. COMPARISON: Comparison is made with prior radiograph dated April 07, 2013. FINDINGS: The lungs are clear and expanded. There is no demonstrated pleural abnormality. There is mild cardiac enlargement. Normal mediastinum and ani. Normal visualized pulmonary arteries. There is atherosclerotic calcification of the aortic arch with tortuosity. There are degenerative changes of the visualized thoracic spine. Degenerative changes of both shoulders. Prior right rotator cuff surgery. There is no demonstrated abnormality of the visualized soft tissue structures of the upper abdomen. RAD/Chest 1 View (Portable) IMPRESSION: Mild cardiomegaly. Electronically Signed: Tim Ortega, at 9:54 EST , Service support ,
--- NOTE | 2019-06-28 08:48 | CON.PCM_ITS ---
Problem List (1) Abdominal pain Status: Acute Reason for Consult Date of Consultation: 06/28/19 Reason for Consultation: abdominal pain History of Present Illness: The patient is a 83 year old F who presented to the ED with worsening abdominal pain. Patient stated she started to have belly cramping late afternoon around 2 pm. Her and her could not remember what they had for lunch. She noted nausea and vomiting. She denies having previous gallbladder issues. She previous appendectomy and no further abdominal surgeries. She denies cardiac and pulmonary history. She has a history of dementia and alcoholism. She has states she has stopped drinking since her recent diagnosis of dementia. She notes she was constipated and is no having regular bowel movements. Past Medical History Medical History: Medical History (Last Updated 06/28/19 @ 07:09 by Akbar Berumen MD) HTN (hypertension) I10 Allergies hydrochlorothiazide Allergy (Verified 10/01/17 19:52) Unknown nitrofurantoin [Nitrofurantoin] Allergy (Verified 10/01/17 19:52) Unknown NSAIDS (Non-Steroidal Anti-Inflamma Allergy (Verified 10/01/17 19:52) Unknown oxaprozin [From Daypro] Allergy (Verified 10/01/17 19:52) Unknown rofecoxib [From Vioxx] Allergy (Verified 10/01/17 19:52) Unknown Sulfa (Sulfonamide Antibiotics) Allergy (Verified 10/01/17 19:52) Hives Home Medications: Ambulatory Orders Medication Instructions Recorded Amlodipine [Norvasc] 2.5 mg PO DAILY 04/07/13 Aspirin [Aspirin, Baby] 81 mg PO DAILY@0800 04/07/13 Desoximetasone 0.25% [Topicort Crm 1 applic TOPICAL BID PRN PRN 04/07/13 0.25%] Fluticasone 0.05% [Flonase Nasal 1 spray NASAL QHS PRN 04/07/13 Kuna] Imipramine HCl [Tofranil] 25 mg PO DAILY 04/07/13 Lisinopril [Zestril] 40 mg PO DAILY 04/07/13 Metoprolol(XL)Succ [Toprol Xl] 100 mg PO DAILY 04/07/13 Multivitamins,Therapeutic 1 tablet PO DAILY 04/07/13 [Multivitamin] Cephalexin [Keflex] 500 mg PO Q6 7 Days #40 capsule 10/01/17 Hydrocodone Bitart/Apap 5-325 1 tablet PO Q6H PRN PRN 3 Days #12 10/01/17 [[place] 5/325] tablet Doxepin HCl 1 tab PO QHS 06/28/19 Sertraline HCl 1 mg PO DAILY 06/28/19 Vit C/E/Zn/Coppr/Lutein/Zeaxan 2 ea PO DAILY 06/28/19 [Preservision Areds 2 Softgel] Surgical History: appendectomy Psychiatric History: No pertinent psych hx QUARTZ ORIENTATOR History: No pertinent QUARTZ ORIENTATOR history Lives: Spouse/ Significant Other Smoking Status: Former smoker Alcohol: None - *Family History Maternal History Items: Unknown Paternal History Items: Heart Disease Review of Systems Constitutional: Reports: Anorexia, Weakness HEENT: Reports: Difficulty Hearing Cardiovascular: Denies: Chest Pain, Palpitations Respiratory: Denies: Cough, Shortness of breath at rest, Sputum production Gastrointestinal: Reports: Abdominal Pain, Constipation, Nausea, Vomiting Genitourinary: Denies: Dysuria Musculoskeletal: Denies: Joint Pain, Joint Tenderness Skin: Denies: Rash, Wounds Neurological: Denies: Numbness, Tingling, Focal weakness Psychiatric: Denies: Anxiety, Depression, Homicidal Ideations, Suicidal Ideations Hematologic/ Lymphatic: Denies: Easy Bruising, Easy Bleeding Patient Problems: Active and Suspected Problems (Last Updated 06/28/19 @ 07:09 by Akbar Berumen MD) Acute colitis (Acute) Abdominal pain (Acute) - Physical Exam Vitals/I&O's: Vital Signs Temp Pulse Resp BP Pulse Ox 98.8 F 75 16 173/85 H 95 06/28/19 07:14 06/28/19 07:14 06/28/19 07:14 06/28/19 07:14 06/28/19 07:14 Oxygen Flow Rate (L/min) 2 Oxygen Delivery Method Room Air Weight: 141 lb 5 oz Body Mass Index (BMI) 25.8 Intake and Output for Last 24 Hours 06/26/19 06/27/19 06/28/19 23:59 23:59 23:59 Intake Total 183.25 / 183.25 Balance 183.25 / 183.25 General: Alert, Oriented x3, Cooperative HEENT: Atraumatic, PERRLA, EOMI, Normocephalic Neck: Supple, No JVD, Negative Carotid Bruits Lungs: Clear to auscultation, Normal air movement Cardiovascular: Regular rate, No murmurs Abdomen: Hypoactive Bowel Sounds, Distended, Tender - Right upper quadrant, - - Nicely healed incision from appendectomy Extremities: No edema, Capillary Refill Less than 3 Seconds Skin: No rashes, No breakdown Musculoskeletal: No Tenderness to Palpation of Joints or Extremities Neurological: Neuro grossly intact Psych/Mental Status: Normal Affect, Appropriate Microbiology Past 72 Hours 06/28/19 04:47 Stool Stool Occult Blood (CITLALLI) - Final Laboratory Results 06/28/19 04:00: WBC 14.1 H, RBC 4.11 L, Hgb 11.6 L, Hct 36.2 L, MCV 88.1, MCH 28.2, MCHC 32.0, RDW Std Deviation 50.4 H, RDW Coeff of Jitendra 15.5 H, Plt Count 239, MPV 11.3, Immature Gran % (Auto) 0.300, Neut % (Auto) 81.4 H, Lymph % (Auto) 11.1 L, [place] % (Auto) 6.6, Eos % (Auto) 0.4, Baso % (Auto) 0.2, Absolute Neuts (auto) 11.5 H, Absolute Lymphs (auto) 1.57, Nucleated RBC % 0 06/28/19 04:00: Sodium 131 L, Potassium 3.9, Chloride 96 L, Carbon Dioxide 28.0, Anion Gap 7, BUN 12, Creatinine 0.98, Estim Creat Clear Calc 35.61, Est GFR (MDRD) Af Amer 70, Est GFR (MDRD) Non-Af 58 L, BUN/Creatinine Ratio 12.2, Glucose 135 H, Calcium 9.6, Total Bilirubin 0.50, AST 24, ALT 25, Alkaline Phosphatase 96, Troponin I < 0.015, Total Protein 8.2, Albumin 3.9, Globulin 4.3 H, Albumin/Globulin Ratio 0.9, Lipase 155 06/28/19 04:00: Lactic Acid 2.2 H* 06/28/19 04:50: Urine Color Yellow, Urine Clarity Sl. Cloudy, Urine pH 8.0, Ur Specific [place] 1.015, Urine Protein Negative, Urine Glucose (UA) Normal, Urine Ketones Negative, Urine Occult Blood 10 H, Urine Nitrite Negative, Urine Bilirubin Negative, Urine Urobilinogen Normal, Ur Leukocyte Esterase Negative, Urine RBC 0-5 SEEN, Urine WBC 0 SEEN, Ur Squamous Epith Cells 0 SEEN, Amorphous Sediment 2+, Urine Bacteria 0 SEEN, Urine Mucus 0 SEEN Current Medications Dextrose (D50w Syringe) 0 gm IV X1 PRN; Protocol PRN Reason: Hypoglycemia Enalaprilat (Vasotec) 1.25 mg IV Q6 [facility] Glucagon () 1 mg IM .X1 PRN PRN Reason: Hypoglycemia Sodium Chloride () 250 mls @ 15 mls/hr IV .[id number] PRN PRN Reason: Saline Flush Sodium Chloride () 250 mls @ 15 mls/hr IV .[id number] PRN PRN Reason: Additional IVPB Infusion Sodium Chloride () 1,000 mls @ 75 mls/hr IV .[id number] [facility] Ciprofloxacin (Cipro) 400 mg in 200 mls @ 200 mls/hr IV Q12 [facility] Metronidazole (Flagyl) 500 mg in 100 mls @ 100 mls/hr IV Q8 [facility] Cefotetan Disodium 2 gm/ (Sodium Chloride) 100 mls @ 200 mls/hr IV SEND TO OR W/PATIENT ONE Stop: 06/28/19 09:16 Labetalol HCl (Trandate) 10 mg IV Q4H PRN PRN PRN Reason: SBP > 160 Morphine Sulfate () 4 mg IV Q3H PRN PRN PRN Reason: Pain Score 6-10/10 Ondansetron HCl (Zofran) 4 mg IV Q6H PRN PRN PRN Reason: NAUSEA/VOMITING Ondansetron HCl (Zofran) 4 mg IV Q8H PRN PRN PRN Reason: NAUSEA/VOMITING Promethazine HCl (Phenergan) 12.5 mg IV Q6H PRN PRN PRN Reason: NAUSEA/VOMITING Sodium Chloride () 10 - 40 ml IV UD PRN PRN Reason: SALINE FLUSH Assessment/Plan All Active Problems (Last Updated 06/28/19 @ 07:09 by Akbar Berumen MD) Acute colitis (Acute) Abdominal pain (Acute) I have been consulted in conjunction with Dr. Feliz. He will independently evaluate this patient. Impression: Right upper quadrant pain. Acute cholecystitis. Plan: Patient was discussed with Dr. Feliz. STAT RUQ u/s was obtained and demonstrated acute cholecystitis. Dr. Feliz will plan to perform a laparoscopic cholecystectomy with intraoperative cholangiogram. Procedure details, risks and benefits have been explained to the patient and her . Patient has had the opportunity to ask and have questions answered. Patient verbally understands and agrees with the plan. STAT EKG and CXR will be obtained prior to surgery. Patient was also discussed with hospitalist. Thank you for allowing us to participate in this patient's care. Code Visit Office Visits / Consults: [id number] IP Consult L3
[2019-06-28] MEDS: 0.9% Saline Lock 10 ML Syringe IV ×4 (09:08→20:57)
--- NOTE | 2019-06-28 09:13 | NURSING ---
Brief report called to Aaliyah ALMONTE, including that shift assessment was not done, and surgical supplemental hx was not done either. pt is confused, A & O x 2.
[2019-06-28 09:21] LABS: Lactic Acid 2.5 mmol/L (0.4-1.9)
--- NOTE | 2019-06-28 09:22 | NURSING ---
Edin RN in AC notified lactic acid is 2.5. , Tash ALMONTEcharge account identification clerk nurse notified and said Dr. Sotelo is on unit and said she would notify him.
[2019-06-28] MEDS: Ciprofloxacin 400 MG/200 ML BAG 200 MG IV ×2 (09:44→22:17)
--- NOTE | 2019-06-28 10:21 | PN_ITS ---
Patient Problems: Active and Suspected Problems (Last Updated 06/28/19 @ 07:09 by Akbar Berumen MD) Acute colitis (Acute) Abdominal pain (Acute) Reason for Visit: Colitis Subjective: Still with abdominal pain. Vitals/I&O's: Vital Signs Temp Pulse Resp BP Pulse Ox 36.4 C L 86 16 138/55 H 96 06/28/19 09:30 06/28/19 09:30 06/28/19 09:30 06/28/19 09:30 06/28/19 09:30 Oxygen Flow Rate (L/min) 2 Oxygen Delivery Method Room Air Weight: 64.098 kg Body Mass Index (BMI) 25.8 Intake and Output for Last 24 Hours 06/26/19 06/27/19 06/28/19 23:59 23:59 23:59 Intake Total 183.25 / 183.25 Balance 183.25 / 183.25 General: Alert, Cooperative, - - uncomfortable. HEENT: Atraumatic, Normocephalic Oral: Moist Mucosa, No Gingival or Mucosal Lesions/ Ulcerations Neck: No Nodes, Trachea Midline Lungs: Clear to auscultation, Normal air movement, No rhonchi, No wheeze, No rales Cardiovascular: Regular rate, Regular Rhythm, Normal S1, Normal S2 Abdomen: Bowel Sounds Present, Soft, Non Tender, Non-Distended Extremities: No edema, No Calf Tenderness Skin: No rashes, No breakdown Psych/Mental Status: Normal Affect, Appropriate Microbiology Past 72 Hours 06/28/19 04:47 Stool Stool Occult Blood (CITLALLI) - Final Laboratory Results 06/28/19 04:00: WBC 14.1 H, RBC 4.11 L, Hgb 11.6 L, Hct 36.2 L, MCV 88.1, MCH 28.2, MCHC 32.0, RDW Std Deviation 50.4 H, RDW Coeff of Jitendra 15.5 H, Plt Count 239, MPV 11.3, Immature Gran % (Auto) 0.300, Neut % (Auto) 81.4 H, Lymph % (Auto) 11.1 L, [place] % (Auto) 6.6, Eos % (Auto) 0.4, Baso % (Auto) 0.2, Absolute Neuts (auto) 11.5 H, Absolute Lymphs (auto) 1.57, Nucleated RBC % 0 06/28/19 04:00: Sodium 131 L, Potassium 3.9, Chloride 96 L, Carbon Dioxide 28.0, Anion Gap 7, BUN 12, Creatinine 0.98, Estim Creat Clear Calc 35.61, Est GFR (MDRD) Af Amer 70, Est GFR (MDRD) Non-Af 58 L, BUN/Creatinine Ratio 12.2, Glucose 135 H, Calcium 9.6, Total Bilirubin 0.50, AST 24, ALT 25, Alkaline Phosphatase 96, Troponin I < 0.015, Total Protein 8.2, Albumin 3.9, Globulin 4.3 H, Albumin/Globulin Ratio 0.9, Lipase 155 06/28/19 04:00: Lactic Acid 2.2 H* 06/28/19 04:50: Urine Color Yellow, Urine Clarity Sl. Cloudy, Urine pH 8.0, Ur Specific [place] 1.015, Urine Protein Negative, Urine Glucose (UA) Normal, Urine Ketones Negative, Urine Occult Blood 10 H, Urine Nitrite Negative, Urine Bilirubin Negative, Urine Urobilinogen Normal, Ur Leukocyte Esterase Negative, Urine RBC 0-5 SEEN, Urine WBC 0 SEEN, Ur Squamous Epith Cells 0 SEEN, Amorphous Sediment 2+, Urine Bacteria 0 SEEN, Urine Mucus 0 SEEN 06/28/19 08:34: Lactic Acid 2.5 H* Current Medications Enalaprilat (Vasotec) 1.25 mg IV Q6 [facility] Glucagon () 1 mg IM .X1 PRN PRN Reason: Hypoglycemia Sodium Chloride () 250 mls @ 15 mls/hr IV .[id number] PRN PRN Reason: Saline Flush Sodium Chloride () 250 mls @ 15 mls/hr IV .[id number] PRN PRN Reason: Additional IVPB Infusion Sodium Chloride () 1,000 mls @ 75 mls/hr IV .[id number] [facility] Ciprofloxacin (Cipro) 400 mg in 200 mls @ 200 mls/hr IV Q12 [facility] Metronidazole (Flagyl) 500 mg in 100 mls @ 100 mls/hr IV Q8 [facility] Dextrose (Dextrose 10%-Water) 250 mls @ 999 mls/hr IV .Q16M PRN; Protocol PRN Reason: HYPOGLYCEMIA Labetalol HCl (Trandate) 10 mg IV Q4H PRN PRN PRN Reason: SBP > 160 Morphine Sulfate () 4 mg IV Q3H PRN PRN PRN Reason: Pain Score 6-10/10 Ondansetron HCl (Zofran) 4 mg IV Q6H PRN PRN PRN Reason: NAUSEA/VOMITING Last Admin: 06/28/19 09:08 Dose: 4 mg Documented by: Promethazine HCl (Phenergan) 12.5 mg IV Q6H PRN PRN PRN Reason: NAUSEA/VOMITING Sodium Chloride () 10 - 40 ml IV UD PRN PRN Reason: SALINE FLUSH Last Admin: 06/28/19 09:08 Dose: 10 ml Documented by: STROKE Vital Signs/Narrative: Vital Signs Temp Pulse Resp BP Pulse Ox 06/28/19 09:30 36.4 C L 86 16 138/55 H 96 06/28/19 07:14 37.1 C 75 16 173/85 H 95 Medical Necessity - Tobacco Use Smoking Status: Former smoker Assessment/Plan All Active Problems (Last Updated 06/28/19 @ 07:09 by Akbar Berumen MD) Acute colitis (Acute) Abdominal pain (Acute) 1. acute cholecystitis * on cipro and metronidazole * lap marcos today. * medically cleared for surgery. Patient able to engage in activities. Low risk on NSQIP 2. Colitis * possible * continue abx for now 3. Lactic acidosis * technically not septic * no additional work up at this time. 4. VTE prophylaxis: mod risk. SCDs Code Visit Procedures: Other Procedure - See Report - non-billable rounding
--- NOTE | 2019-06-28 10:26 | RAD_ITS ---
STUDY: INTRAOPERATIVE GLANDULAR. REASON FOR EXAM: Female, 83 years old. ACUTE CHOLECYSTITIS; -- CHOLANGIOGRAM CLEAR PER SURGEON FLUOROSCOPY TIME (if supplied): ( 21 seconds ) minutes/seconds. A cine loop was submitted. TECHNIQUE: Intraoperative clavulanate was performed by the surgeon. Imaging was submitted. COMPARISON: None. FINDINGS: The visualized intrahepatic biliary ducts are unremarkable. The common bile duct measures upper limits of normal. No intraluminal filling defect is seen. There is free flow of contrast into the duodenum. RAD/Cholangiogram/ O R,Initial IMPRESSION: Unremarkable intraoperative cholangiogram. Electronically Signed: Tim Ortega, at 12:30 EST , Service support ,
--- NOTE | 2019-06-28 10:40 | CASEMGMT ---
RN CM attempted to complete assessment at this time. Patient is out of room in surgery at this time. RN CM will attempt to complete assessment at later time.
[2019-06-28] MEDS: Bupiv/Epi 0.25% 30 ML Vial (11:06)
[2019-06-28] MEDS: 0.9% Normal Saline 1,000 ML 75 ML IV (11:42)
--- NOTE | 2019-06-28 11:43 | OP.PCM_ITS ---
Problem List (1) Acute cholecystitis Status: Acute Report of Operation Date of Procedure: 06/28/19 Pre-Operative Diagnosis: Acute cholecystitis Post-Operative Diagnosis: Same Surgery/Procedure Performed:: Laparoscopic cholecystectomy with cholangiogram Specimen's removed: Gallbladder and contents Estimated Blood Loss (mL): 150 Description of Procedure: After obtaining informed consent patient was brought back to the operating room. General anesthesia was induced. The abdomen was prepped and draped in usual sterile fashion. A small midline incision was made superior to the umbilicus and deepened to the level of fascia. The fascia was elevated and incised. Next the peritoneum was elevated and incised in the same fashion. Finger sweep was performed and the Tolentino trocar was placed into the abdomen. The balloon was inflated. The abdomen was inflated to 15 mmHg. Next a camera was introduced into the abdomen and the abdomen was inspected. Next under direct visualization three 5-mm ports were placed one subxiphoid and 2 subcostal. Next the gallbladder was elevated and retracted toward the right shoulder. The gallbladd er was very inflamed. It was aspirated. The adhesions to the colon and omentum were bluntly divided. The peritoneum was stripped from the gallbladder. The infundibulum was located and retracted laterally. Next the triangle of Calot was dissected and the cystic duct and cystic artery were identified. Cholangiograms were performed. A clip was placed in the proximal cystic duct and a cyndi was made in the cystic duct. A small skin incision was made the Ranfac catheter was placed into the abdomen and into the cystic duct and clip was placed across it. Under fluoroscopy contrast was instilled into the gallbladder and the common duct, cystic duct as well as proximal hepatic ducts were identified. There was good filling of the duodenum. There were no filling defects noted in the common bile duct. The clip was removed and the Ranfac catheter was removed. The infundibulum was grasped once more. Three hemolock clips were placed across the cystic duct. The cystic duct was then divided leaving 2 clips on the stump. The cystic artery was clipped and divided in the same fashion. The hook cautery was then used to take the gallbladder off of the gallbladder bed. Hemostasis was obtained. Gallbladder fossa was irrigated and no active bleeding or bile leakage was noted. Next the camera switched to a 5 mm camera and introduced in the subxiphoid port. An Endopouch bag was placed through the umbilical port and the gallbladder was placed into it. The gallbladder was then removed through the umbilical incision. The camera was then reinserted through the umbilical port. The gallbladder fossa was inspected once more and noted to be hemostatic with no leaking bile. Surgicel powder was sprayed over the gallbladder fossa. The abdomen was suctioned dry. The 5 mm ports were removed under direct visualization. The umbilical port was then removed and the air was removed from the abdomen. Next using an 0 Vicryl suture the umbilical fascia was closed in a [id number] fashion. The umbilical port site was irrigated local anesthetic was administered to all the incisions. All the incisions were closed with interrupted subcuticular 4-0 Monocryl sutures followed by Steri-Strips and dressings. The patient was awoken and taken to PACU in stable condition. - Admit VTE Documentation VTE Mechan Device Prophylaxis: SCD's
[2019-06-28] MEDS: Enalaprilat 1.25 MG/ML Vial IV ×2 (13:01→17:30)
[2019-06-28] MEDS: Acetaminophen 325 MG Tablet 650 MG PO (19:32)
[2019-06-28 22:44] LABS: Magnesium 2.2 mg/dL (1.6-2.6)
[2019-06-28] MEDS: Metoprolol(XL)Succ 100 MG Tablet PO (22:46)
[2019-06-29] VITALS (13 sets, daily range): BP systolic 120–147; BP diastolic 71–82; PULSE 66–141; RESP 16–18; TEMP 36.7–37.4; O2SAT 94–99
[2019-06-29] MEDS: 0.9% Normal Saline 1,000 ML 75 ML IV ×2 (02:13→17:31)
[2019-06-29] MEDS: metroNIDAZOLE 500 MG/100 ML BAG 100 MG IV ×3 (05:10→22:23)
[2019-06-29 05:46] LABS: Absolute Lymphocyte Count 1.94 X10^3/uL (0.83-4.51); Absolute Neutrophil Count 6.1 X10^3/uL (2.0-7.7); Basophil# 0.02 X10^3/uL; Basophil% 0.2 % (0-1); Eosinophil# 0.11 X10^3/uL; Eosinophils% 1.2 % (0-5); Hematocrit 32.1 % (37-47); Hemoglobin 10.2 g/dL (12.0-15.0); Lymphocyte # 1.94 X10^3/ul (4.0); Lymphocyte % 20.8 % (19-41); Mean Corp Hgb Conc 31.8 g/dL (32-36); Mean Corpuscular Hgb 28.2 pg (27.0-32.0); Mean Corpuscular Volume 88.7 fL (81-99); Mean Platelet Vol. 10.7 fl (6.2-12.0); Monocyte# 1.11 X10^3/uL; Monocyte% 11.9 % (0-10); NRBC Flagged by Analyzer 0 % (0-5); Neutrophil % 65.4 % (47-70); Platelet Count 208 K/mm3 (150-450); RBC Distribution Width CV 15.5 % (11.6-14.6); RBC Distribution Width SD 50.6 fl (35.1-43.9); Red Blood Count 3.62 M/mm3 (4.2-5.4); White Blood Count 9.3 K/mm3 (4.4-11.0)
[2019-06-29 06:21] LABS: Anion Gap 6 (5-15); BUN 9 mg/dL (7-18); BUN/Creat Ratio 10.9 RATIO (10-20); Calcium,Total 8.6 mg/dL (8.5-10.1); Chloride 104 mmol/L (98-107); Creatinine, Serum 0.83 mg/dL (0.55-1.02); EST Glomerular Filtration Rate 70 mL/min (>60); Est Glom Filt Rate - Afr Amer 85 mL/min (>60); Estimated Creatinine Clearance 42.04 ml/min; Glucose 106 mg/dL (74-106); Potassium 3.7 mmol/L (3.5-5.1); Sodium Level 133 mmol/L (136-145)
--- NOTE | 2019-06-29 07:49 | NURSING ---
pt with unknown amount of urination r/t missing urine hat in toilet. does not want to be straight catheterized at this time. Will walk in halls and try to urinate again
--- NOTE | 2019-06-29 08:35 | PN_ITS ---
Patient Problems: Active and Suspected Problems (Last Updated 06/28/19 @ 07:09 by Akbar Berumen MD) Acute colitis (Acute) Abdominal pain (Acute) Acute cholecystitis (Acute) Reason for Visit: cholecystitis Subjective: Feels better overall, though, still with abdominal pain. Vitals/I&O's: Vital Signs Temp Pulse Resp BP Pulse Ox 37.4 C H 74 18 125/73 H 95 06/29/19 08:15 06/29/19 08:15 06/29/19 08:15 06/29/19 08:15 06/29/19 08:15 Oxygen Flow Rate (L/min) 1 Oxygen Delivery Method Room Air Weight: 64.098 kg Body Mass Index (BMI) 25.8 Intake and Output for Last 24 Hours 06/27/19 06/28/19 06/29/19 23:59 23:59 23:59 Intake Total 3183.25 / 3183.25 841.25 / 841.25 Output Total 800 / 800 Balance 2383.25 / 2383.25 841.25 / 841.25 General: Oriented x3, No apparent distress HEENT: Atraumatic, Normocephalic Oral: Moist Mucosa, No Gingival or Mucosal Lesions/ Ulcerations Neck: No Nodes, Trachea Midline Lungs: Clear to auscultation, Normal air movement, No rhonchi, No wheeze Cardiovascular: Regular rate, Regular Rhythm, Normal S1, Normal S2, No murmurs Abdomen: Bowel Sounds Present, Soft, - - right-sided abdominal tenderness Extremities: No edema, No Calf Tenderness Skin: No rashes, No breakdown Psych/Mental Status: Appropriate, Flat Affect Microbiology Past 72 Hours 06/28/19 04:47 Stool Stool Occult Blood (CITLALLI) - Final Laboratory Results 06/28/19 04:00: Magnesium 2.2 06/28/19 08:34: Lactic Acid 2.5 H* 06/29/19 05:20: WBC 9.3, RBC 3.62 L, Hgb 10.2 L, Hct 32.1 L, MCV 88.7, MCH 28.2, MCHC 31.8 L, RDW Std Deviation 50.6 H, RDW Coeff of Jitendra 15.5 H, Plt Count 208, MPV 10.7, Immature Gran % (Auto) 0.500, Neut % (Auto) 65.4, Lymph % (Auto) 20.8, [place] % (Auto) 11.9 H, Eos % (Auto) 1.2, Baso % (Auto) 0.2, Absolute Neuts (auto) 6.1, Absolute Lymphs (auto) 1.94, Nucleated RBC % 0 06/29/19 05:20: Sodium 133 L, Potassium 3.7, Chloride 104, Carbon Dioxide 23.0, Anion Gap 6, BUN 9, Creatinine 0.83, Estim Creat Clear Calc 42.04, Est GFR (MDRD) Af Amer 85, Est GFR (MDRD) Non-Af 70, BUN/Creatinine Ratio 10.9, Glucose 106, Calcium 8.6 Current Medications Acetaminophen (Tylenol) 650 mg PO Q4H PRN PRN PRN Reason: Pain Score 1-10/10 Last Admin: 06/28/19 19:32 Dose: 650 mg Documented by: Amlodipine Besylate (Norvasc) 2.5 mg PO DAILY [facility] Glucagon () 1 mg IM .X1 PRN PRN Reason: Hypoglycemia Sodium Chloride () 250 mls @ 15 mls/hr IV .[id number] PRN PRN Reason: Saline Flush Sodium Chloride () 250 mls @ 15 mls/hr IV .[id number] PRN PRN Reason: Additional IVPB Infusion Sodium Chloride () 1,000 mls @ 75 mls/hr IV .[id number] [facility] Last Infusion: 06/29/19 06:10 Dose: 75 mls/hr Documented by: Ciprofloxacin (Cipro) 400 mg in 200 mls @ 200 mls/hr IV Q12 [facility] Last Infusion: 06/28/19 23:17 Dose: Infused Documented by: Metronidazole (Flagyl) 500 mg in 100 mls @ 100 mls/hr IV Q8 [facility] Last Infusion: 06/29/19 06:10 Dose: Infused Documented by: Dextrose (Dextrose 10%-Water) 250 mls @ 999 mls/hr IV .Q16M PRN; Protocol PRN Reason: HYPOGLYCEMIA Labetalol HCl (Trandate) 10 mg IV Q4H PRN PRN PRN Reason: SBP > 160 Lisinopril (Zestril) 40 mg PO DAILY [facility] Metoprolol Succinate (Toprol Xl (Beta Garth)) 100 mg PO DAILY [facility] Last Admin: 06/28/19 22:46 Dose: 100 mg Documented by: Morphine Sulfate () 4 mg IV Q3H PRN PRN PRN Reason: Pain Score 6-10/10 Last Admin: 06/28/19 20:57 Dose: 4 mg Documented by: Ondansetron HCl (Zofran) 4 mg IV Q6H PRN PRN PRN Reason: NAUSEA/VOMITING Last Admin: 06/28/19 09:08 Dose: 4 mg Documented by: Promethazine HCl (Phenergan) 12.5 mg IV Q6H PRN PRN PRN Reason: NAUSEA/VOMITING Sodium Chloride () 10 - 40 ml IV UD PRN PRN Reason: SALINE FLUSH Last Admin: 06/28/19 20:57 Dose: 10 ml Documented by: STROKE Vital Signs/Narrative: Vital Signs Temp Pulse Resp BP Pulse Ox 06/29/19 08:15 37.4 C H 74 18 125/73 H 95 Medical Necessity - Tobacco Use Smoking Status: Former smoker Assessment/Plan All Active Problems (Last Updated 06/28/19 @ 07:09 by Akbar Berumen MD) Acute colitis (Acute) Abdominal pain (Acute) Acute cholecystitis (Acute) 1. acute cholecystitis * on cipro and metronidazole * s/p lap marcos on 06/28 * medically cleared for surgery. Patient able to engage in activities. Low risk on NSQIP * On clears, advance per general surgery 2. Colitis * possible, though mva still operator * continue abx for now 3. Lactic acidosis * technically not septic * no additional work up at this time. 4. VTE prophylaxis: mod risk. SCDs 5. Disposition: pending overall improvement. Would like to see patient eat more. Code Visit Inpatient E&M: 77751 Subs Hosp L2
[2019-06-29] MEDS: Acetaminophen 325 MG Tablet 650 MG PO (08:36)
--- NOTE | 2019-06-29 09:02 | PCM.PN.SRG ---
Patient Problems: Active and Suspected Problems (Last Updated 06/28/19 @ 07:09 by Akbar Berumen MD) Acute colitis (Acute) Abdominal pain (Acute) Acute cholecystitis (Acute) Subjective: Patient reports feeling better than before surgery. She is still not passing any flatus. No nausea or vomiting. - Physical Exam Vitals/I&O's: Vital Signs Temp Pulse Resp BP Pulse Ox 99.3 F H 74 18 125/73 H 95 06/29/19 08:15 06/29/19 08:15 06/29/19 08:15 06/29/19 08:15 06/29/19 08:15 Oxygen Flow Rate (L/min) 1 Oxygen Delivery Method Room Air Weight: 141 lb 4.99 oz Body Mass Index (BMI) 25.8 Intake and Output for Last 24 Hours 06/27/19 06/28/19 06/29/19 23:59 23:59 23:59 Intake Total 3183.25 / 3183.25 841.25 / 841.25 Output Total 800 / 800 Balance 2383.25 / 2383.25 841.25 / 841.25 General: Alert, Oriented x3 Neck: No JVD Lungs: Normal air movement Abdomen: Soft, Tender Microbiology Past 72 Hours 06/28/19 04:47 Stool Stool Occult Blood (CITLALLI) - Final Laboratory Results 06/28/19 04:00: Magnesium 2.2 06/28/19 08:34: Lactic Acid 2.5 H* 06/29/19 05:20: WBC 9.3, RBC 3.62 L, Hgb 10.2 L, Hct 32.1 L, MCV 88.7, MCH 28.2, MCHC 31.8 L, RDW Std Deviation 50.6 H, RDW Coeff of Jitendra 15.5 H, Plt Count 208, MPV 10.7, Immature Gran % (Auto) 0.500, Neut % (Auto) 65.4, Lymph % (Auto) 20.8, [place] % (Auto) 11.9 H, Eos % (Auto) 1.2, Baso % (Auto) 0.2, Absolute Neuts (auto) 6.1, Absolute Lymphs (auto) 1.94, Nucleated RBC % 0 06/29/19 05:20: Sodium 133 L, Potassium 3.7, Chloride 104, Carbon Dioxide 23.0, Anion Gap 6, BUN 9, Creatinine 0.83, Estim Creat Clear Calc 42.04, Est GFR (MDRD) Af Amer 85, Est GFR (MDRD) Non-Af 70, BUN/Creatinine Ratio 10.9, Glucose 106, Calcium 8.6 Current Medications Acetaminophen (Tylenol) 650 mg PO Q4H PRN PRN PRN Reason: Pain Score 1-10/10 Last Admin: 06/29/19 08:36 Dose: 650 mg Documented by: Amlodipine Besylate (Norvasc) 2.5 mg PO DAILY [facility] Glucagon () 1 mg IM .X1 PRN PRN Reason: Hypoglycemia Sodium Chloride () 250 mls @ 15 mls/hr IV .[id number] PRN PRN Reason: Saline Flush Sodium Chloride () 250 mls @ 15 mls/hr IV .[id number] PRN PRN Reason: Additional IVPB Infusion Sodium Chloride () 1,000 mls @ 75 mls/hr IV .[id number] [facility] Last Infusion: 06/29/19 06:10 Dose: 75 mls/hr Documented by: Ciprofloxacin (Cipro) 400 mg in 200 mls @ 200 mls/hr IV Q12 [facility] Last Infusion: 06/28/19 23:17 Dose: Infused Documented by: Metronidazole (Flagyl) 500 mg in 100 mls @ 100 mls/hr IV Q8 [facility] Last Infusion: 06/29/19 06:10 Dose: Infused Documented by: Dextrose (Dextrose 10%-Water) 250 mls @ 999 mls/hr IV .Q16M PRN; Protocol PRN Reason: HYPOGLYCEMIA Labetalol HCl (Trandate) 10 mg IV Q4H PRN PRN PRN Reason: SBP > 160 Lisinopril (Zestril) 40 mg PO DAILY [facility] Metoprolol Succinate (Toprol Xl (Beta Garth)) 100 mg PO DAILY [facility] Last Admin: 06/28/19 22:46 Dose: 100 mg Documented by: Morphine Sulfate () 4 mg IV Q3H PRN PRN PRN Reason: Pain Score 6-10/10 Last Admin: 06/28/19 20:57 Dose: 4 mg Documented by: Ondansetron HCl (Zofran) 4 mg IV Q6H PRN PRN PRN Reason: NAUSEA/VOMITING Last Admin: 06/28/19 09:08 Dose: 4 mg Documented by: Promethazine HCl (Phenergan) 12.5 mg IV Q6H PRN PRN PRN Reason: NAUSEA/VOMITING Sodium Chloride () 10 - 40 ml IV UD PRN PRN Reason: SALINE FLUSH Last Admin: 06/28/19 20:57 Dose: 10 ml Documented by: Medical Necessity - Tobacco Use Smoking Status: Former smoker Assessment/Plan All Active Problems (Last Updated 06/28/19 @ 07:09 by Akbar Berumen MD) Acute colitis (Acute) Abdominal pain (Acute) Acute cholecystitis (Acute) 83-year-old female status post laparoscopic cholecystectomy for acute cholecystitis 1. The patient's white count has improved. She is feeder tender. She is distended and not passing any flatus yet. She can have clears for now but I would not advance her diet until she starts passing flatus. At that time she can advance as tolerated and likely be discharged. Continue antibiotics for now. I will start Lovenox. Baldo Feliz MD Pager: [facility] [address] [place] [address], [address] [place] [address] Office:
[2019-06-29] MEDS: amLODIPine 2.5 MG Tablet PO (09:49)
[2019-06-29] MEDS: Lisinopril 40 MG Tablet PO (09:49)
[2019-06-29] MEDS: Metoprolol(XL)Succ 100 MG Tablet PO (09:49)
--- NOTE | 2019-06-29 09:58 | CASEMGMT ---
Addendum entered by Ozzie Burden 06/29/19 10:36: Pt's requested pharmacy be changed to [facility] for this admission. Changed in computer. Original Note: RN CM Assessment Presentation: 06/28 Demarco Christianson role of CM and purpose of RN CM assessment to patient and her in room. Pt is sitting in chair. Pt TETLIN, but able to participate. Deferred to for many questions. Demographics, PCP and Pharmacy verified. attentive and able to assist. Plan is for pt to return home on discharge if able to ambulate safely. PCP: Dr. Soriano Specialists: Dr. Feliz, surgeon Preferred Pharmacy: [facility] Insurance: [facility] Prescription Benefit: yes LNOK: Clive Hooks Living Arrangements: Pt lives in one story home, 2 steps into home. States she is independent in ADL and no care needs at this time. Transportation: Pt states her drives, she has given up driving recently due to her declining eyesight. DME: none. Pt states her daughter has walker she can use if needed. HHC/SNF: no SW Referral: no Patient DC goals: home DC PLAN: anticipate Home with family support. Alejandro ROSENTHAL RN ACM
[2019-06-29] MEDS: Ciprofloxacin 400 MG/200 ML BAG 200 MG IV ×2 (10:17→21:15)
[2019-06-29] MEDS: Enoxaparin 40 MG/0.4 ML Syringe SC (10:21)
--- NOTE | 2019-06-29 10:53 | CASEMGMT ---
LW/POA forms not on file. SW let pt and know, they will bring in the documents as able. THEO Montejo
--- NOTE | 2019-06-29 14:38 | NURSING ---
Pt up and walking throughout the day around the halls, 5 times. Tolerates well. Sitting upright in chair when not walking.
[2019-06-30] VITALS (8 sets, daily range): BP systolic 117–133; BP diastolic 61–74; PULSE 71–79; RESP 16; TEMP 36.4–36.9; O2SAT 95–96
[2019-06-30] MEDS: metroNIDAZOLE 500 MG/100 ML BAG 100 MG IV (05:45)
[2019-06-30 06:07] LABS: Anion Gap 7 (5-15); BUN 6 mg/dL (7-18); BUN/Creat Ratio 9.3 RATIO (10-20); Calcium,Total 8.3 mg/dL (8.5-10.1); Chloride 110 mmol/L (98-107); Creatinine, Serum 0.64 mg/dL (0.55-1.02); EST Glomerular Filtration Rate 94 mL/min (>60); Est Glom Filt Rate - Afr Amer 113 mL/min (>60); Glucose 92 mg/dL (74-106); Potassium 3.7 mmol/L (3.5-5.1); Sodium Level 139 mmol/L (136-145)
[2019-06-30] MEDS: Acetaminophen 325 MG Tablet 650 MG PO (07:08)
--- NOTE | 2019-06-30 07:10 | PN.SURG_ITS ---
Patient Problems: Active and Suspected Problems (Last Updated 06/28/19 @ 07:09 by Akbar Berumen MD) Acute colitis (Acute) Abdominal pain (Acute) Acute cholecystitis (Acute) Subjective: Patient tolerated clear liquids but she still does not report any flatus. She had hypoactive bowel sounds yesterday evening. - Physical Exam Vitals/I&O's: Vital Signs Temp Pulse Resp BP Pulse Ox 98.2 F 76 16 126/65 H 95 06/30/19 03:15 06/30/19 04:00 06/30/19 03:15 06/30/19 03:15 06/30/19 03:15 Oxygen Flow Rate (L/min) 1 Oxygen Delivery Method Room Air Weight: 141 lb 4.99 oz Body Mass Index (BMI) 25.8 Intake and Output for Last 24 Hours 06/28/19 06/29/19 06/30/19 23:59 23:59 23:59 Intake Total 3183.25 / 3183.25 3462.50 / 3462.50 1878.75 / 1878.75 Output Total 800 / 800 2300 / 2300 1950 / 1950 Balance 2383.25 / 2383.25 1162.50 / 1162.50 -71.25 / -71.25 General: Alert, Oriented x3 Lungs: Normal air movement Abdomen: Soft, Tender Microbiology Past 72 Hours 06/28/19 04:47 Stool Stool Occult Blood (CITLALLI) - Final Laboratory Results 06/30/19 05:24: Sodium 139, Potassium 3.7, Chloride 110 H, Carbon Dioxide 22.0, Anion Gap 7, BUN 6 L, Creatinine 0.64, Estim Creat Clear Calc 34.90, Est GFR (MDRD) Af Amer 113, Est GFR (MDRD) Non-Af 94, BUN/Creatinine Ratio 9.3 L, Glucose 92, Calcium 8.3 L Current Medications Acetaminophen (Tylenol) 650 mg PO Q4H PRN PRN PRN Reason: Pain Score 1-10/10 Last Admin: 06/30/19 07:08 Dose: 650 mg Documented by: Amlodipine Besylate (Norvasc) 2.5 mg PO DAILY [facility] Last Admin: 06/29/19 09:49 Dose: 2.5 mg Documented by: Enoxaparin Sodium (Lovenox) 40 mg SC DAILY [facility] Last Admin: 06/29/19 10:21 Dose: 40 mg Documented by: Glucagon () 1 mg IM .X1 PRN PRN Reason: Hypoglycemia Sodium Chloride () 250 mls @ 15 mls/hr IV .[id number] PRN PRN Reason: Saline Flush Sodium Chloride () 250 mls @ 15 mls/hr IV .[id number] PRN PRN Reason: Additional IVPB Infusion Sodium Chloride () 1,000 mls @ 75 mls/hr IV .[id number] [facility] Last Infusion: 06/30/19 06:45 Dose: 75 mls/hr Documented by: Ciprofloxacin (Cipro) 400 mg in 200 mls @ 200 mls/hr IV Q12 [facility] Last Infusion: 06/29/19 22:15 Dose: Infused Documented by: Metronidazole (Flagyl) 500 mg in 100 mls @ 100 mls/hr IV Q8 [facility] Last Infusion: 06/30/19 06:45 Dose: Infused Documented by: Dextrose (Dextrose 10%-Water) 250 mls @ 999 mls/hr IV .Q16M PRN; Protocol PRN Reason: HYPOGLYCEMIA Labetalol HCl (Trandate) 10 mg IV Q4H PRN PRN PRN Reason: SBP > 160 Lisinopril (Zestril) 40 mg PO DAILY [facility] Last Admin: 06/29/19 09:49 Dose: 40 mg Documented by: Metoprolol Succinate (Toprol Xl (Beta Garth)) 100 mg PO DAILY [facility] Last Admin: 06/29/19 09:49 Dose: 100 mg Documented by: Morphine Sulfate () 4 mg IV Q3H PRN PRN PRN Reason: Pain Score 6-10/10 Last Admin: 06/28/19 20:57 Dose: 4 mg Documented by: Ondansetron HCl (Zofran) 4 mg IV Q6H PRN PRN PRN Reason: NAUSEA/VOMITING Last Admin: 06/28/19 09:08 Dose: 4 mg Documented by: Promethazine HCl (Phenergan) 12.5 mg IV Q6H PRN PRN PRN Reason: NAUSEA/VOMITING Sodium Chloride () 10 - 40 ml IV UD PRN PRN Reason: SALINE FLUSH Last Admin: 06/28/19 20:57 Dose: 10 ml Documented by: Medical Necessity - Tobacco Use Smoking Status: Former smoker Assessment/Plan All Active Problems (Last Updated 06/28/19 @ 07:09 by Akbar Berumen MD) Acute colitis (Acute) Abdominal pain (Acute) Acute cholecystitis (Acute) 83-year-old female with acute cholecystitis 1. The patient seems to be doing well this morning. She tolerated clear liquids with no nausea or vomiting but she is still having some abdominal pain and she is not passing any flatus. She may be having a postoperative ileus due to the inflammation of her gallbladder. I recommend continuing clears until she starts passing flatus. When she starts passing flatus she may have her diet advanced and be discharged home once tolerating a diet. 2. I discontinued her antibiotics. Baldo Feliz MD Pager: [facility] [address] [place] [address] [address] [place] [phone] Office:
--- NOTE | 2019-06-30 08:38 | PCM.PN.HOSP ---
Patient Problems: Active and Suspected Problems (Last Updated 06/28/19 @ 07:09 by Akbar Berumen MD) Acute colitis (Acute) Abdominal pain (Acute) Acute cholecystitis (Acute) Reason for Visit: cholecystitis Subjective: Feeling better. Still no flatus. Vitals/I&O's: Vital Signs Temp Pulse Resp BP Pulse Ox 36.9 C 72 16 117/61 96 06/30/19 07:40 06/30/19 08:35 06/30/19 07:40 06/30/19 07:40 06/30/19 07:40 Oxygen Flow Rate (L/min) 1 Oxygen Delivery Method Room Air Weight: 64.098 kg Body Mass Index (BMI) 25.8 Intake and Output for Last 24 Hours 06/28/19 06/29/19 06/30/19 23:59 23:59 23:59 Intake Total 3183.25 / 3183.25 3462.50 / 3462.50 1878.75 / 1878.75 Output Total 800 / 800 2300 / 2300 1950 / 1950 Balance 2383.25 / 2383.25 1162.50 / 1162.50 -71.25 / -71.25 General: Cooperative, No apparent distress HEENT: Atraumatic, Normocephalic Oral: Moist Mucosa, No Gingival or Mucosal Lesions/ Ulcerations Neck: No Nodes, Trachea Midline Lungs: Clear to auscultation, Normal air movement, No rhonchi, No wheeze, No rales Cardiovascular: Regular rate, Regular Rhythm, Normal S1, Normal S2, No murmurs Abdomen: Bowel Sounds Present, Soft, Non-Distended, - - slight tenderness Psych/Mental Status: Normal Affect, Appropriate Microbiology Past 72 Hours 06/28/19 04:47 Stool Stool Occult Blood (CITLALLI) - Final Laboratory Results 06/30/19 05:24: Sodium 139, Potassium 3.7, Chloride 110 H, Carbon Dioxide 22.0, Anion Gap 7, BUN 6 L, Creatinine 0.64, Estim Creat Clear Calc 34.90, Est GFR (MDRD) Af Amer 113, Est GFR (MDRD) Non-Af 94, BUN/Creatinine Ratio 9.3 L, Glucose 92, Calcium 8.3 L Current Medications Acetaminophen (Tylenol) 650 mg PO Q4H PRN PRN PRN Reason: Pain Score 1-10/10 Last Admin: 06/30/19 07:08 Dose: 650 mg Documented by: Amlodipine Besylate (Norvasc) 2.5 mg PO DAILY [facility] Last Admin: 06/29/19 09:49 Dose: 2.5 mg Documented by: Enoxaparin Sodium (Lovenox) 40 mg SC DAILY [facility] Last Admin: 06/29/19 10:21 Dose: 40 mg Documented by: Glucagon () 1 mg IM .X1 PRN PRN Reason: Hypoglycemia Sodium Chloride () 250 mls @ 15 mls/hr IV .[id number] PRN PRN Reason: Saline Flush Sodium Chloride () 250 mls @ 15 mls/hr IV .[id number] PRN PRN Reason: Additional IVPB Infusion Sodium Chloride () 1,000 mls @ 75 mls/hr IV .[id number] [facility] Last Infusion: 06/30/19 06:45 Dose: 75 mls/hr Documented by: Dextrose (Dextrose 10%-Water) 250 mls @ 999 mls/hr IV .Q16M PRN; Protocol PRN Reason: HYPOGLYCEMIA Labetalol HCl (Trandate) 10 mg IV Q4H PRN PRN PRN Reason: SBP > 160 Lisinopril (Zestril) 40 mg PO DAILY [facility] Last Admin: 06/29/19 09:49 Dose: 40 mg Documented by: Metoprolol Succinate (Toprol Xl (Beta Garth)) 100 mg PO DAILY [facility] Last Admin: 06/29/19 09:49 Dose: 100 mg Documented by: Morphine Sulfate () 4 mg IV Q3H PRN PRN PRN Reason: Pain Score 6-10/10 Last Admin: 06/28/19 20:57 Dose: 4 mg Documented by: Ondansetron HCl (Zofran) 4 mg IV Q6H PRN PRN PRN Reason: NAUSEA/VOMITING Last Admin: 06/28/19 09:08 Dose: 4 mg Documented by: Promethazine HCl (Phenergan) 12.5 mg IV Q6H PRN PRN PRN Reason: NAUSEA/VOMITING Sodium Chloride () 10 - 40 ml IV UD PRN PRN Reason: SALINE FLUSH Last Admin: 06/28/19 20:57 Dose: 10 ml Documented by: STROKE Vital Signs/Narrative: Vital Signs Temp Pulse Resp BP Pulse Ox 06/30/19 08:35 72 06/30/19 07:40 36.9 C 71 16 117/61 96 Medical Necessity - Tobacco Use Smoking Status: Former smoker Assessment/Plan All Active Problems (Last Updated 06/28/19 @ 07:09 by Akbar Berumen MD) Acute colitis (Acute) Abdominal pain (Acute) Acute cholecystitis (Acute) 1. acute cholecystitis s/p lap marcos on 06/28 medically cleared for surgery. Patient able to engage in activities. Low risk on NSQIP On clears, advance per general surgery. No flatus yet. Encouraged to ambulate 2. Colitis possible, though vat tender continue abx for now 3. Lactic acidosis technically not septic no additional work up at this time. 4. VTE prophylaxis: mod risk. SCDs 5. Disposition: pending overall improvement. Would like to see patient eat more. Code Visit Inpatient E&M: 39138 Subs Hosp L2
[2019-06-30] MEDS: Lisinopril 40 MG Tablet PO (09:01)
[2019-06-30] MEDS: amLODIPine 2.5 MG Tablet PO (09:01)
[2019-06-30] MEDS: Metoprolol(XL)Succ 100 MG Tablet PO (09:01)
[2019-06-30] MEDS: Enoxaparin 40 MG/0.4 ML Syringe SC (09:03)
--- NOTE | 2019-06-30 09:06 | NURSING ---
pt passed gas
[2019-06-30] MEDS: 0.9% Normal Saline 1,000 ML 75 ML IV (10:51)
--- NOTE | 2019-06-30 13:25 | DCINST_ITS ---
Discharge Diet: Light diet - advance as tolerated Discharge Activity: Return to Normal Activity, May Not Drive - for 2-3 days or while taking narcotic pain medicataions., May Shower Lifting Restrictions: 20 lbs for 2 weeks Additional Activity Instructions:: Pain medication may cause nausea. You should typically eat light foods as you take your pain medications. Pain medication may also cause constipation. If this is a problem for you, please discuss with your doctor. Call your doctor if your incision/area has: Continuous Slow Oozing, Sudden Increased Bleeding, Increased Pain/ Swelling, Increased Redness, Foul Smelling Discharge, Fever of 101 or Higher Call your doctor if you observe: Fever of 101 or Higher Suture Line Care: Avoid Pulling/Pushing, Avoid Pinching/Bending Additional Dressing/Incision Instructions:: Remove dressing, leave Steri-Strips on until your follow-up appointment, or until the Steri-Strips fall off on their own. Allergies/Adverse Reactions: Allergies hydrochlorothiazide Allergy (Verified 10/01/17 19:52) Unknown nitrofurantoin [Nitrofurantoin] Allergy (Verified 10/01/17 19:52) Unknown NSAIDS (Non-Steroidal Anti-Inflamma Allergy (Verified 10/01/17 19:52) Unknown oxaprozin [From Daypro] Allergy (Verified 10/01/17 19:52) Unknown rofecoxib [From Vioxx] Allergy (Verified 10/01/17 19:52) Unknown Sulfa (Sulfonamide Antibiotics) Allergy (Verified 10/01/17 19:52) Hives Medications to take at Discharge Amlodipine [Norvasc] 2.5 mg PO DAILY 04/07/13 Aspirin [Aspirin, Baby] 81 mg PO DAILY@0800 04/07/13 Desoximetasone 0.25% [Topicort Crm 0.25%] 1 applic TOPICAL BID PRN PRN 04/07/13 Fluticasone 0.05% [Flonase Nasal [place]] 1 spray NASAL QHS PRN 04/07/13 Imipramine HCl [Tofranil] 25 mg PO DAILY 04/07/13 Lisinopril [Zestril] 40 mg PO DAILY 04/07/13 Metoprolol(XL)Succ [Toprol Xl (Beta Garth)] 100 mg PO DAILY 04/07/13 Multivitamins,Therapeutic [Multivitamin] 1 tablet PO DAILY 04/07/13 Cephalexin [Keflex] 500 mg PO Q6 7 Days #40 capsule 10/01/17 Hydrocodone Bitart/Apap 5-325 [[place] 5/325] 1 tablet PO Q6H PRN PRN 3 Days #12 tablet 10/01/17 Citalopram [Celexa] 20 mg PO DAILY 06/28/19 Doxepin HCl 1 tab PO QHS 06/28/19 Vit C/E/Zn/Coppr/Lutein/Zeaxan [Preservision Areds 2 Softgel] 2 ea PO DAILY 06/28/19 Acetaminophen [Tylenol Tablet] 650 mg PO Q4H PRN PRN tablet 06/30/19 Primary Care Physician: Flavio Soriano MD [Primary Care Provider] - Test Results: Test results from this visit will be discussed in further detail at your follow- up appointment, if applicable. Please Follow Up With: Baldo Feliz MD When: Please call to schedule 2 week follow up appointment. [phone]
--- NOTE | 2019-06-30 13:30 | PCM.DC.SUM ---
Discharge Date and Diagnosis - Problem List Patient Problems: Active and Suspected Problems (Last Updated 06/28/19 @ 07:09 by Akbar Berumen MD) Acute colitis (Acute) Abdominal pain (Acute) Acute cholecystitis (Acute) Date of Admission: 06/28/19 Date of Discharge: 06/30/19 - Primary Discharge Diagnosis Active and Suspected Problems (Last Updated 06/28/19 @ 07:09 by Akbar Berumen MD) Acute colitis (Acute) Abdominal pain (Acute) Acute cholecystitis (Acute) Hospital Course and Treatment Imaging Results: Clinical Impression(s) from Imaging Studies Abdomen/Pelvis CT 06/28/19 04:16 IMPRESSION: Possible colitis involving the ascending colon which is transversely oriented in the right abdomen. Small hiatal hernia. Borderline gallbladder distention. Left-sided colonic diverticulosis with most prominent involvement of the sigmoid colon. 4.9 cm simple left ovarian cyst probably representing an atypical physiologic cyst or a benign ovarian neoplasm. This can be followed with pelvic ultrasound. Electronically Signed: Oc Hernandez MD at 5:46 EST , Service support , Abdomen Ultrasound 06/28/19 06:33 IMPRESSION: Multiple gallstones with a thickened gallbladder wall and a small amount of pericholecystic fluid. Electronically Signed: Tim Ortega, at 8:36 EST , Service support , Chest X-Ray 06/28/19 08:45 IMPRESSION: Mild cardiomegaly. Electronically Signed: Tim Ortega, at 9:54 EST , Service support , Cholangiogram 06/28/19 10:26 IMPRESSION: Unremarkable intraoperative cholangiogram. Electronically Signed: Tim Ortega, at 12:30 EST , Service support , Tray general surgery Operations: cholecystecomy Summary of Care Provided: The patient is a 83 year old F presents with abdominal pain. Patient initially thought to have had colitis but the subsequent evaluation confirmed the patient had acute cholecystitis. Patient was taken for laparoscopic cholecystectomy on the . Patient slowly progressed afterwards and today finally had flatus and tolerated regular diet. Patient will be discharged home with follow-up with Dr. Feliz.[] Patient Problems: Active and Suspected Problems (Last Updated 06/28/19 @ 07:09 by Akbar Berumen MD) Acute colitis (Acute) Abdominal pain (Acute) Acute cholecystitis (Acute) - Physical Exam Vitals/I&O's: Vital Signs Temp Pulse Resp BP Pulse Ox 36.4 C L 79 16 133/74 H 95 06/30/19 11:04 06/30/19 12:26 06/30/19 11:04 06/30/19 11:04 06/30/19 11:15 Oxygen Flow Rate (L/min) 1 Oxygen Delivery Method Room Air Weight: 64.098 kg Body Mass Index (BMI) 25.8 Intake and Output for Last 24 Hours 06/28/19 06/29/19 06/30/19 23:59 23:59 23:59 Intake Total 3183.25 / 3183.25 3462.50 / 3462.50 2570.00 / 2570.00 Output Total 800 / 800 2300 / 2300 2850 / 2850 Balance 2383.25 / 2383.25 1162.50 / 1162.50 -280.00 / -280.00 Microbiology Past 72 Hours 06/28/19 04:47 Stool Stool Occult Blood (CITLALLI) - Final Laboratory Results 06/30/19 05:24: Sodium 139, Potassium 3.7, Chloride 110 H, Carbon Dioxide 22.0, Anion Gap 7, BUN 6 L, Creatinine 0.64, Estim Creat Clear Calc 34.90, Est GFR (MDRD) Af Amer 113, Est GFR (MDRD) Non-Af 94, BUN/Creatinine Ratio 9.3 L, Glucose 92, Calcium 8.3 L Current Medications Acetaminophen (Tylenol) 650 mg PO Q4H PRN PRN PRN Reason: Pain Score 1-10/10 Last Admin: 06/30/19 07:08 Dose: 650 mg Documented by: Amlodipine Besylate (Norvasc) 2.5 mg PO DAILY [facility] Last Admin: 06/30/19 09:01 Dose: 2.5 mg Documented by: Enoxaparin Sodium (Lovenox) 40 mg SC DAILY [facility] Last Admin: 06/30/19 09:03 Dose: 40 mg Documented by: Glucagon () 1 mg IM .X1 PRN PRN Reason: Hypoglycemia Sodium Chloride () 250 mls @ 15 mls/hr IV .[id number] PRN PRN Reason: Saline Flush Sodium Chloride () 250 mls @ 15 mls/hr IV .[id number] PRN PRN Reason: Additional IVPB Infusion Dextrose (Dextrose 10%-Water) 250 mls @ 999 mls/hr IV .Q16M PRN; Protocol PRN Reason: HYPOGLYCEMIA Labetalol HCl (Trandate) 10 mg IV Q4H PRN PRN PRN Reason: SBP > 160 Lisinopril (Zestril) 40 mg PO DAILY [facility] Last Admin: 06/30/19 09:01 Dose: 40 mg Documented by: Metoprolol Succinate (Toprol Xl (Beta [place])) 100 mg PO DAILY [facility] Last Admin: 06/30/19 09:01 Dose: 100 mg Documented by: Morphine Sulfate () 4 mg IV Q3H PRN PRN PRN Reason: Pain Score 6-10/10 Last Admin: 06/28/19 20:57 Dose: 4 mg Documented by: Ondansetron HCl (Zofran) 4 mg IV Q6H PRN PRN PRN Reason: NAUSEA/VOMITING Last Admin: 06/28/19 09:08 Dose: 4 mg Documented by: Promethazine HCl (Phenergan) 12.5 mg IV Q6H PRN PRN PRN Reason: NAUSEA/VOMITING Sodium Chloride () 10 - 40 ml IV UD PRN PRN Reason: SALINE FLUSH Last Admin: 06/28/19 20:57 Dose: 10 ml Documented by: Discharge Diet: Light diet - advance as tolerated Discharge Activity: Return to Normal Activity, May Not Drive - for 2-3 days or while taking narcotic pain medicataions., May Shower Additional Activity Instructions:: Pain medication may cause nausea. You should typically eat light foods as you take your pain medications. Pain medication may also cause constipation. If this is a problem for you, please discuss with your doctor. Call your doctor if your incision/area has: Continuous Slow Oozing, Sudden Increased Bleeding, Increased Pain/ Swelling, Increased Redness, Foul Smelling Discharge, Fever of 101 or Higher Call your doctor if you observe: Fever of 101 or Higher Suture Line Care: Avoid Pulling/Pushing, Avoid Pinching/Bending Additional Dressing/Incision Instructions:: Remove dressing, leave Steri-Strips on until your follow-up appointment, or until the Steri-Strips fall off on their own. Home Medications: Medications to take at Discharge Amlodipine [Norvasc] 2.5 mg PO DAILY 04/07/13 Aspirin [Aspirin, Baby] 81 mg PO DAILY@0800 04/07/13 Desoximetasone 0.25% [Topicort Crm 0.25%] 1 applic TOPICAL BID PRN PRN 04/07/13 Fluticasone 0.05% [Flonase Nasal [place]] 1 spray NASAL QHS PRN 04/07/13 Imipramine HCl [Tofranil] 25 mg PO DAILY 04/07/13 Lisinopril [Zestril] 40 mg PO DAILY 04/07/13 Metoprolol(XL)Succ [Toprol Xl (Beta Garth)] 100 mg PO DAILY 04/07/13 Multivitamins,Therapeutic [Multivitamin] 1 tablet PO DAILY 04/07/13 Citalopram [Celexa] 20 mg PO DAILY 06/28/19 Doxepin HCl 1 tab PO QHS 06/28/19 Vit C/E/Zn/Coppr/Lutein/Zeaxan [Preservision Areds 2 Softgel] 2 ea PO DAILY 06/28/19 Acetaminophen [Tylenol Tablet] 650 mg PO Q4H PRN PRN tab 06/30/19 Primary Care Physician: Flavio Soriano MD [Primary Care Provider] - Please Follow Up With: Baldo Feliz MD When: Please call to schedule 2 week follow up appointment. [phone] Disposition: Home Minutes spent on discharge:: 28 Patient Condition:: Good Medical Necessity - Tobacco Use Smoking Status: Former smoker Meaningful Use Info Meaningful Use Diagnoses (Choose all that apply): None applicable Code Visit Inpatient E&M: 93617 Disch Hosp
== END 2019-06-30 14:17 | disposition home or self-care (01) | DRG 418 ==
LOC: ED 04:48 → MS3 06:39
PROVIDERS: Surgery; Admitting Provider Hospitalist; Emergency Provider Emergency Medicine; PCP Family Medicine
PROC: 0FT44ZZ Resection of Gallbladder, Percutaneous Endoscopic Approach (ICD-10-PCS; CPT 47610; principal; 2019-06-28 16:20)
DX: K80.12 Calculus of gallbladder with acute and chronic cholecystitis without obstruction (principal); E87.2 Acidosis; K52.9 Noninfective gastroenteritis and colitis, unspecified; I10 Essential (primary) hypertension; F32.9 Major depressive disorder, single episode, unspecified; Z87.891 Personal history of nicotine dependence; Z79.899 Other long term (current) drug therapy; N83.292 Other ovarian cyst, left side; F03.90 Unspecified dementia, unspecified severity, without behavioral disturbance, psychotic disturbance, mood disturbance, and anxiety
CPT/HCPCS: 36415; 71045; 74177; 74300; 76000; 76705; 80048; 80053; 81001; 82274; 83605; 83690; 83735; 84484; 85025; 88304; 93005; 99284; J7030; Q9967; A4216; J0744; J2405

== ENCOUNTER 2019-07-26 10:24 | Observation (INO) | payer MEDICARE, BC, SELFPAY ==
[2019-06-28 09:30] VITALS: BMI 25.8
[2019-07-26] VITALS (9 sets, daily range): BP systolic 128–162; BP diastolic 67–105; PULSE 56–77; RESP 14–18; TEMP 36.4–37.2; O2SAT 96–99; BMI 25.2; BMI 26.4
--- NOTE | 2019-07-26 10:40 | EKG12_ITS ---
Test Reason : DIZZINESS Blood Pressure : / mmHG Vent. Rate : 068 BPM Atrial Rate : 068 BPM P-R Int : 142 ms QRS Dur : 078 ms QT Int : 418 ms P-R-T Axes : 063 050 044 degrees QTc Int : 444 ms Sinus rhythm with Premature atrial complexes Otherwise normal ECG Confirmed by NIMA FRAIRE, FROY ([id number]), assignment desk editor COURTNEY BLANKENSHIP ([id number]) on 07/31/2019 2:25:50 PM Referred By: GRECIA Confirmed By:TONY HERRING MD
--- NOTE | 2019-07-26 10:40 | CT_ITS ---
STUDY: CT BRAIN WITHOUT CONTRAST REASON FOR EXAM: Female, 83 years old. Dizziness today, no injury or fall. Hx hypertension. RADIATION DOSAGE (If Supplied By Facility): CTDIvol = ( 44.99 ) mGy, DLP = ( 762.36 ) mGycm TECHNIQUE: Transaxial CT imaging of the brain was performed without administration of intravenous contrast material. Individualized dose optimization techniques were used for this CT. COMPARISON: Comparison is made with prior study dated November 09, 2017. FINDINGS: Normal soft tissue structures. Normal calvarium. There is moderate cerebral atrophy with widening of the extra-axial spaces and ventricular dilatation. Normal white matter tracts of the cerebral hemispheres. There are small punctate calcifications of the basal ganglia which are seen in the aging brain as a normal variant. Normal brainstem. There is mild cerebellar atrophy. There is no intracranial hemorrhage. There are no findings of an acute ischemic infarction. Normal visualized paranasal sinuses. CT/Brain/Head without Contrast IMPRESSION: Chronic involutional changes of the brain. Electronically Signed: Tim Ortega, at 11:25 EST , Service support ,
--- NOTE | 2019-07-26 10:43 | ED.DCSUM_ITS ---
History of Present Illness Chief Complaint: Dizziness Informant: Patient Limited by: Dementia Onset: Today Context: Sudden Onset Timing: Continuous Current Severity: Moderate Maximum Severity: Moderate Narrative: The patient is an 83-year-old female with history of mild dementia and hypertension that presents to the emergency department with dizziness. She has a hard time describing the symptoms. She states that it feels like she is lightheaded but also feels like she is in motion. She states is worse with movement. She denies any trouble speaking or swallowing. She states she does have a mild headache. She denies any recent falls or trauma. The states that she is been more unsteady on her feet. She has not had any vomit ing. She denies any visual change. She has no history of prior stroke. She is not on anticoagulants. Prior similar symptoms: Yes Recent Illness/Hospitalization: No Past Medical History - Allergies and Home Meds Allergies/Adverse Reactions: Allergies hydrochlorothiazide Allergy (Verified 07/26/19 10:27) Unknown nitrofurantoin [Nitrofurantoin] Allergy (Verified 07/26/19 10:27) Unknown NSAIDS (Non-Steroidal Anti-Inflamma Allergy (Verified 07/26/19 10:27) Unknown oxaprozin [From Daypro] Allergy (Verified 07/26/19 10:27) Unknown rofecoxib [From Vioxx] Allergy (Verified 07/26/19 10:27) Unknown Sulfa (Sulfonamide Antibiotics) Allergy (Verified 07/26/19 10:27) Hives Primary Care Physician: Flavio Soriano MD [Primary Care Provider] - Prior records reviewed: Yes Past Medical History: - - Hypertension Surgical History: appendectomy Smoking Status: Former smoker - Family History Paternal Family History: Reports: Heart Disease Maternal Family History: Reports: Unknown Review of Systems General: Denies: Chills, Fever, Sweats Eyes: Denies: Visual changes - bilaterally, Diplopia ENT: Denies: Rhinorrhea, Sore throat Cardiovascular: Denies: Chest pain, Palpitations Respiratory: Denies: Dyspnea, Cough, Dyspnea on exertion Gastrointestinal: Reports: Nausea. Denies: Abdominal pain, Vomiting, Diarrhea, Melena, Hematochezia Genitourinary: Denies: Dysuria, Hematuria, Frequency Musculoskeletal: Denies: Back pain, Extremity Pain Skin: Denies: Rash, Wounds Neurological: Reports: Headache. Denies: Weakness, Numbness Physical Exam Vital Signs/Narrative: Vital Signs Temp Pulse Resp BP Pulse Ox 07/26/19 10:27 98.2 F 67 18 155/96 H 98 Inital Vital Signs reviewed: Yes General: Well nourished, Well developed, No Acute Distress Head: Normocephalic, Atraumatic Eyes: Perrl, EOMI ENT: Moist mucous membranes, No rhinorrhea Neck: Supple, Nontender Cardiovascular: Regular rate, Regular rhythm, No murmurs Respiratory: No distress, CTA bilaterally, Chest nontender Abdomen: Soft, Nontender, Nondistended, Normal bowel sounds Back: Nontender, Normal Inspection Extremities: Nontender, No edema Skin: Normal color, No rash Neurological: Alert, Oriented x3, Cranial nerves II-XII grossly intact, Normal Strength, Normal Sensation Psychological: Normal affect, Normal Mood Diagnostic/Tx/Re-eval Clinical Impression(s) from Imaging Studies Brain CT 07/26/19 10:40 IMPRESSION: Chronic involutional changes of the brain. Electronically Signed: Tim Ortega, at 11:25 EST , Service support , Chest X-Ray 07/26/19 10:48 IMPRESSION: Hyperinflation. The lungs are clear. Electronically Signed: Tim Ortega, at 11:22 EST , Service support , Head/Neck CTA 07/26/19 11:26 IMPRESSION: No large vessel occlusion. 50-69% stenosis of the right ICA. Electronically Signed: Iggy Linder MD at 12:38 EST Tel , Service support , Abnormal Lab Results 07/26/19 07/26/19 10:40 10:40 WBC 5.3 RBC 4.05 L Hgb 11.8 L Hct 36.5 L MCV 90.1 MCH 29.1 MCHC 32.3 RDW Std Deviation 50.6 H RDW Coeff of Jitendra 15.2 H Plt Count 278 MPV 10.8 Immature Gran % (Auto) 0.400 Neut % (Auto) 45.0 L Lymph % (Auto) 38.4 [place] % (Auto) 8.7 Eos % (Auto) 6.6 H Baso % (Auto) 0.9 Absolute Neuts (auto) 2.4 Absolute Lymphs (auto) 2.03 Nucleated RBC % 0 Sodium 138 Potassium 4.5 Chloride 106 Carbon Dioxide 26.0 Anion Gap 6 BUN 13 Creatinine 0.88 Estim Creat Clear Calc 39.65 Est GFR (MDRD) Af Amer 80 Est GFR (MDRD) Non-Af 66 BUN/Creatinine Ratio 14.9 Glucose 92 Calcium 9.1 Total Bilirubin 0.20 AST 30 ALT 24 Alkaline Phosphatase 95 Total Protein 7.7 Albumin 3.6 Globulin 4.1 Albumin/Globulin Ratio 0.9 - Medical Decision Making The patient presents with persistent dizziness that she describes as a sensation of motion. It is not exacerbated with head motion at the bedside. Lawson was attempted with no improvement. Noncontrast head CT was obtained which was unrem arkable for acute process. CTAs were also obtained which showed some disease in the carotid, but were otherwise unremarkable. The patient has had these persistent symptoms now for 12 hours. She is unsteady on her feet when she tries to ambulate. I do have some concern for a posterior stroke and given the patient's age and risk factors, along with her inability to ambulate, I do feel that she would benefit from observation. The patient was discussed with the hospitalist. Impression 1. Persistent vertigo ED Disposition - Plan for ED Patient: Referrals: Flavio Soriano MD [Primary Care Provider] -
--- NOTE | 2019-07-26 10:48 | RAD_ITS ---
STUDY: X-RAY CHEST REASON FOR EXAM: Female, 83 years old. SOB, DIZZINESS TECHNIQUE: Single AP portable view of the chest. COMPARISON: Comparison is made with prior examination dated June 28, 2019. FINDINGS: EKG electrodes are seen. Hyperinflation. The lungs are clear. There is no demonstrated pleural abnormality. Normal size heart. Normal mediastinum and ani. Normal visualized pulmonary arteries. There is atherosclerotic calcification of the aortic arch with tortuosity. There are degenerative changes of the visualized thoracic spine. Evidence of prior right rotator cuff surgery. There is no demonstrated abnormality of the visualized soft tissue structures of the upper abdomen. RAD/Chest 1 View (Portable) IMPRESSION: Hyperinflation. The lungs are clear. Electronically Signed: Tim Ortega, at 11:22 EST , Service support ,
[2019-07-26] MEDS: 0.9% Normal Saline 1,000 ML 1000 ML IV (10:54)
[2019-07-26] MEDS: Ondansetron 4 MG/2 ML Vial IV (10:54)
[2019-07-26 11:02] LABS: Absolute Lymphocyte Count 2.03 X10^3/uL (0.83-4.51); Absolute Neutrophil Count 2.4 X10^3/uL (2.0-7.7); Basophil# 0.05 X10^3/uL; Basophil% 0.9 % (0-1); Eosinophil# 0.35 X10^3/uL; Eosinophils% 6.6 % (0-5); Hematocrit 36.5 % (37-47); Hemoglobin 11.8 g/dL (12.0-15.0); Lymphocyte # 2.03 X10^3/ul (4.0); Lymphocyte % 38.4 % (19-41); Mean Corp Hgb Conc 32.3 g/dL (32-36); Mean Corpuscular Hgb 29.1 pg (27.0-32.0); Mean Corpuscular Volume 90.1 fL (81-99); Mean Platelet Vol. 10.8 fl (6.2-12.0); Monocyte# 0.46 X10^3/uL; Monocyte% 8.7 % (0-10); NRBC Flagged by Analyzer 0 % (0-5); Neutrophil # 2.38 X10^3/uL (2.7-7.7); Platelet Count 278 K/mm3 (150-450); RBC Distribution Width CV 15.2 % (11.6-14.6); RBC Distribution Width SD 50.6 fl (35.1-43.9); Red Blood Count 4.05 M/mm3 (4.2-5.4); White Blood Count 5.3 K/mm3 (4.4-11.0)
[2019-07-26 11:23] LABS: ALB/GLOB Ratio 0.9 RATIO (0.9-2.4); AST(SGOT) 30 U/L (15-37); Alanine Aminotransfer ALT/SGPT 24 U/L (13-56); Albumin, Serum 3.6 g/dL (3.2-5.0); Alkaline Phosphatase 95 U/L (45-117); Anion Gap 6 (5-15); BUN 13 mg/dL (7-18); BUN/Creat Ratio 14.9 RATIO (10-20); Calcium,Total 9.1 mg/dL (8.5-10.1); Chloride 106 mmol/L (98-107); Creatinine, Serum 0.88 mg/dL (0.55-1.02); EST Glomerular Filtration Rate 66 mL/min (>60); Est Glom Filt Rate - Afr Amer 80 mL/min (>60); Estimated Creatinine Clearance 39.65 ml/min; Globulin 4.1 g/dL (2.2-4.2); Glucose 92 mg/dL (74-106); Potassium 4.5 mmol/L (3.5-5.1); Protein, Total 7.7 g/dL (6.4-8.2); Sodium Level 138 mmol/L (136-145)
--- NOTE | 2019-07-26 11:26 | CT_ITS ---
STUDY: CTA HEAD AND NECK WITH CONTRAST REASON FOR EXAM: Female, 83 years old. Vertigo, dizziness upon waking today, no injury. Hx hypertension. RADIATION DOSAGE (If Supplied By Facility): CTDIvol = ( 20.26 ) mGy, DLP = ( 574.17 ) mGycm TECHNIQUE: CT angiography was performed with a multi-detector CT scanner. Data acquisition was obtained from the skull base through the vertex following intravenous administration of 100mL Isovue 370. MIP images were reconstructed from the axial data set. Post-processing of the angiographic images was performed, with multiplanar reformation and 3D reconstruction. Individualized dose optimization techniques were used for this CT. COMPARISON: No relevant priors. FINDINGS: Normal bilateral petrous carotid arteries. There is calcified plaque formation of the right cavernous carotid artery, without a cross-sectional luminal stenosis. There is calcified plaque formation of the left cavernous carotid artery, without a cross-sectional luminal stenosis. Normal right A1 segments of the anterior cerebral artery. Normal left A1 segments of the anterior cerebral artery. Normal intact anterior communicating artery (ACOM). Normal bilateral A2 segments of the anterior cerebral arteries. Normal right M1 and M2 segments of the middle cerebral arteries, with a normal M1 bifurcation. Normal left M1 and M2 segments of the middle cerebral arteries, with a normal M1 bifurcation. There is a persistent origin of the right posterior cerebral artery with absence of the posterior communicating artery (PCOM). Normal left posterior communicating artery (PCOM). Normal basilar artery with a normal basilar bifurcation. The visualized bilateral superior cerebellar (SCA) arteries are normal. Normal bilateral P1, P2 and visualized P3 segments of the posterior cerebral arteries. AORTIC ARCH: Mild atherosclerotic plaque of the visualized aortic arch. RIGHT CAROTID ARTERIES: There is atherosclerotic tortuous elongation of the right common carotid artery. There is moderate atherosclerotic plaque formation with moderate narrowing of the right carotid bulb. There is moderate atherosclerotic plaque formation of the origin of the right internal carotid artery with an estimated stenosis of 50-69% stenosis. There is atherosclerotic tortuous elongation of the cervical portion of the right internal carotid artery. Normal origin of the right external carotid artery (ECA). LEFT CAROTID ARTERIES: There is atherosclerotic tortuous elongation of the left common carotid artery. There is mild atherosclerotic plaque formation with minimal narrowing of the left carotid bulb. Normal origin of the left internal carotid (ICA) artery without a hemodynamically significant stenosis. There is atherosclerotic tortuous elongation of the cervical portion of the left internal carotid artery. Normal origin of the left external carotid artery (ECA). VERTEBRAL ARTERIES: There is enhancement within the bilateral vertebral arteries with a small right vertebral artery, and a dominant left vertebral artery. CT/CTA Head AND Neck W/ Contrast IMPRESSION: No large vessel occlusion. 50-69% stenosis of the right ICA. Electronically Signed: Iggy Linder MD at 12:38 EST Tel , Service support ,
[2019-07-26] MEDS: Meclizine HCl 25 MG Tablet PO (12:48)
--- NOTE | 2019-07-26 13:16 | HP.PCM_ITS ---
Problem List (1) Vertigo Status: Acute (2) Hypertension Status: Chronic Qualifiers: Hypertension type: essential hypertension Qualified Code(s): I10 - Essential (primary) hypertension History of Present Illness Date of Admission: 07/26/19 Chief Complaint: Dizziness - started suddenly this morning The patient is a 83 year old F with past medical history of hypertension, hearing impairment who was in her usual state of health until this morning when she woke up with sudden onset of dizziness. Patient describes feeling herself wobbly and being unsteady on her feet. She denies any tingling or numbness in any of her extremities or face. She denies any falls. Denied any upper respiratory illness. She is at baseline hard of hearing and uses hearing aids. She denied any worsening hearing or muffled sounds or ringing in her ears. No recent diarrhea. Vitals in the ED showed temperature of 98.2F, heart rate 87, blood pressure 155/96, patient rate of 18, SPO2 is 98% on room air. BC count was remarkable for white cell count of 5.3, hemoglobin 11.8, platelet 273, CMP was unremarkable. Initial CT scan of the head showed chronic inflammatory changes of the brain. CTA of the head and neck showed no large vessel occlusion but 50 to 69% stenosis of the right ICA. Chest x-ray is unremarkable for acute cardiopulmonary process. Past Medical History Past Medical History (Chronic Problems): Chronic Problems (Last Updated 06/28/19 @ 07:09 by Akbar Berumen MD) Hypertension (Chronic) Medical History: Medical History (Last Updated 06/28/19 @ 07:09 by Akbar Berumen MD) HTN (hypertension) I10 Allergies hydrochlorothiazide Allergy (Verified 07/26/19 10:27) Unknown nitrofurantoin [Nitrofurantoin] Allergy (Verified 07/26/19 10:27) Unknown NSAIDS (Non-Steroidal Anti-Inflamma Allergy (Verified 07/26/19 10:27) Unknown oxaprozin [From Daypro] Allergy (Verified 07/26/19 10:27) Unknown rofecoxib [From Vioxx] Allergy (Verified 07/26/19 10:27) Unknown Sulfa (Sulfonamide Antibiotics) Allergy (Verified 07/26/19 10:27) Hives Home Medications: Ambulatory Orders Medication Instructions Recorded Amlodipine [Norvasc] 2.5 mg PO DAILY 04/07/13 Aspirin [Aspirin, Baby] 81 mg PO DAILY@0800 04/07/13 Fluticasone 0.05% [Flonase Nasal 1 spray NASAL QHS PRN 04/07/13 [place]] Lisinopril [Zestril] 40 mg PO DAILY 04/07/13 Metoprolol(XL)Succ [Toprol Xl 100 mg PO DAILY 04/07/13 (Beta Garth)] Multivitamins,Therapeutic 1 tablet PO DAILY 04/07/13 [Multivitamin] Doxepin HCl 1 tab PO QHS 06/28/19 Vit C/E/Zn/Coppr/Lutein/Zeaxan 2 ea PO DAILY 06/28/19 [Preservision Areds 2 Softgel] Acetaminophen [Tylenol Tablet] 650 mg PO Q4H PRN PRN tab 06/30/19 Bifidobacter. Bifidum/B.longum 460 mg PO DAILY 07/26/19 [Florajen Bifidoblend Capsule] Desoximetasone 0.25% [Topicort Crm 1 applic TOPICAL BID 07/26/19 0.25%] Folic Acid 1 mg PO DAILY 07/26/19 Hydrocortisone [Preparation H] 1 applic TP BID 07/26/19 Melatonin 10 mg PO DAILY 07/26/19 Sertraline HCl [Zoloft] 50 mg PO DAILY 07/26/19 Vitamin B Complex 1 ea PO DAILY 07/26/19 Surgical History: appendectomy, cholecystectomy Psychiatric History: No pertinent psych hx HOSPICE NURSE History: No pertinent HOSPICE NURSE history Lives: Spouse/ Significant Other Smoking Status: Former smoker Tobacco Use: Non-smoker Alcohol: Occasional - 3 beers every Wednesday and wednesday Drugs: None - *Family History Maternal History Items: Unknown Paternal History Items: Heart Disease Review of Systems Constitutional: Denies: Anorexia, Chills, Fever, Malaise, Weakness, Weight Change, Fatigue Eyes: Denies: Blurred vision, Cataracts, Double vision, Pain, Redness, Vision Change HEENT: Reports: Hard of Hearing. Denies: Difficulty Hearing, Difficulty Swallowing, Head Aches, Hearing Changes, Sinus Congestion, Sinus Drainage Cardiovascular: Reports: - - dizziness. Denies: Chest Pain, Claudication, Orthopnea, Palpitations, Paroxysmal Noc. Dyspnea Respiratory: Denies: Cough, Hemoptysis, Shortness of breath at rest, Shortness of breath upon exertion, Sputum production Gastrointestinal: Denies: Abdominal Pain, Hematemesis, Nausea, Vomiting Genitourinary: Denies: Dysuria, Frequency, Incontinence Gynecological: Denies: Breast symptoms, Excessively long or heavy periods Musculoskeletal: Denies: Joint Pain, Joint stiffness, Joint swelling, Joint Tenderness Skin: Denies: Rash, Wounds Neurological: Reports: Balance problems, Incoordination. Denies: Focal weakness, Numbness, Tingling Psychiatric: Denies: Anxiety, Depression, Homicidal Ideations, Suicidal Ideations Hematologic/ Lymphatic: Denies: Easy Bruising, Easy Bleeding VTE Information - Inpt Only VTE Present on Admission: No VTE Pharm Prophylaxis ordered?: Yes Patient Problems: Active and Suspected Problems (Last Updated 06/28/19 @ 07:09 by Akbar Berumen MD) Vertigo (Acute) - Physical Exam Vitals/I&O's: Vital Signs Temp Pulse Resp BP Pulse Ox 98.2 F 64 18 155/96 H 98 07/26/19 10:27 07/26/19 10:44 07/26/19 10:44 07/26/19 10:27 07/26/19 10:44 Oxygen Delivery Method Room Air Weight: 62.596 kg Body Mass Index (BMI) 25.2 General: Alert, Oriented x3, Cooperative, No apparent distress HEENT: Atraumatic, PERRLA, EOMI, Normocephalic Oral: Moist Mucosa Neck: Supple Lungs: Clear to auscultation, Normal air movement Cardiovascular: Regular rate, Regular Rhythm, Normal S1, Normal S2, No murmurs Abdomen: Bowel Sounds Present, Soft, Non Tender, Non-Distended, No Hepato- splenomegaly Extremities: No edema Skin: No rashes, No breakdown Musculoskeletal: No Tenderness to Palpation of Joints or Extremities Lymphatic: No Cervical, Supraclavicular, or Inguinal Adenopathy Neurological: Cranial nerves II-XII grossly intact, Neuro grossly intact, - - No nystagmus seen Psych/Mental Status: Normal Affect, Appropriate Laboratory Results 07/26/19 10:40: WBC 5.3, RBC 4.05 L, Hgb 11.8 L, Hct 36.5 L, MCV 90.1, MCH 29.1, MCHC 32.3, RDW Std Deviation 50.6 H, RDW Coeff of Jitendra 15.2 H, Plt Count 278, MPV 10.8, Immature Gran % (Auto) 0.400, Neut % (Auto) 45.0 L, Lymph % (Auto) 38.4, [place] % (Auto) 8.7, Eos % (Auto) 6.6 H, Baso % (Auto) 0.9, Absolute Neuts (auto) 2.4, Absolute Lymphs (auto) 2.03, Nucleated RBC % 0 07/26/19 10:40: Sodium 138, Potassium 4.5, Chloride 106, Carbon Dioxide 26.0, Anion Gap 6, BUN 13, Creatinine 0.88, Estim Creat Clear Calc 39.65, Est GFR (MDRD) Af Amer 80, Est GFR (MDRD) Non-Af 66, BUN/Creatinine Ratio 14.9, Glucose 92, Calcium 9.1, Total Bilirubin 0.20, AST 30, ALT 24, Alkaline Phosphatase 95, Total Protein 7.7, Albumin 3.6, Globulin 4.1, Albumin/Globulin Ratio 0.9 Assessment/Plan All Active Problems (Last Updated 06/28/19 @ 07:09 by Akbar Berumen MD) Acute colitis (Acute) Abdominal pain (Acute) Acute cholecystitis (Acute) Vertigo (Acute) 83 year old F with past medical history of hypertension, hearing impairment who was in her usual state of health until this morning when she woke up with sudden onset of dizziness. 1. Acute vertigo, likely secondary to BPPV, will however rule out acute posterior circulation stroke due to the sudden onset of her dizziness Initial CT of the brain was unremarkable for acute intracranial pathology. CT of the head showed right ICA 50 to 69% stenosis, no large vessel occlusion We will admit to PCU, follow stroke protocol, MRI of the brain, would hold off on neurology consult until MRI of the brain is positive for acute stroke Meclizine as needed, PT/OT/ST to evaluate and treat Aspirin 81 mg p.o. daily, lipid profile in a.m., will hold off on ordering 2D echo for now unless MRI is positive for stroke 2. Hypertension, controlled, would hold off on blood pressure medications pending results of MRI Will resume blood pressure medications if MRI is negative for acute stroke 3. Depression, continue on Zoloft 4. DVT prophylaxis with heparin subcu Code Visit OBSV E&M: 47250 Initial observation care L3
--- NOTE | 2019-07-26 14:14 | MRI_ITS ---
STUDY: MRI BRAIN WITHOUT CONTRAST REASON FOR EXAM: Female, 83 years old. VERTIGO, BLURRED VISION TECHNIQUE: Standardized multiplanar fat and water weighted pulse sequences were obtained. COMPARISON: CT same day FINDINGS: Mild cortical atrophy. There are a limited number of small white matter hyperintensities, distributed throughout the deep white matter tracts of the cerebral hemispheres, consistent with mild chronic white matter ischemic changes. Normal bilateral basal ganglia. Normal thalami. There is no extra-axial fluid accumulation. Normal flow voids within the major intracranial circulation suggesting patency by spin echo criteria. Normal sella turcica, pituitary gland, infundibular stalk, optic chiasm and hypothalamus. Normal tectal plate and pineal gland. Normal midbrain, jesenia and medulla. Normal cerebellum. Normal basal cisterns. Normal bilateral temporal bones. Normal bilateral internal auditory canals. There are bilateral ocular lens implants with otherwise normal intraorbital contents. Normal visualized paranasal sinuses. Normal calvarium and skull base. Normal visualized soft tissue structures. Normal visualized upper cervical spine. MRI/Brain without Contrast IMPRESSION: No evidence of acute infarct or hemorrhage. Electronically Signed: Reinaldo Buckley MD at 21:27 EST Tel , Service support ,
[2019-07-26] MEDS: Aspirin 81 MG TAB.CHEW PO (17:34)
[2019-07-26] MEDS: Heparin Injection (Vial) 5,000 UNIT/ML VIAL 5000 UNIT SC ×2 (17:34→21:23)
[2019-07-26] MEDS: 0.9% Normal Saline 1,000 ML 100 ML IV (17:38)
[2019-07-26] MEDS: Meclizine 12.5 MG Tablet PO (21:23)
[2019-07-26] MEDS: MELATONIN 10 MG TABLET PO (21:23)
[2019-07-27] VITALS (7 sets, daily range): BP systolic 129–160; BP diastolic 67–91; PULSE 59–84; RESP 16–18; TEMP 36.4; O2SAT 93–97
[2019-07-27] MEDS: 0.9% Normal Saline 1,000 ML 100 ML IV (04:04)
[2019-07-27] MEDS: Meclizine 12.5 MG Tablet PO ×2 (05:31→12:13)
[2019-07-27] MEDS: Heparin Injection (Vial) 5,000 UNIT/ML VIAL 5000 UNIT SC ×2 (05:31→15:23)
[2019-07-27] MEDS: Ondansetron 4 MG/2 ML Vial IV (06:35)
[2019-07-27] MEDS: 0.9% Saline Lock 10 ML Syringe IV (06:35)
[2019-07-27 06:37] LABS: Absolute Lymphocyte Count 1.83 X10^3/uL (0.83-4.51); Absolute Neutrophil Count 1.9 X10^3/uL (2.0-7.7); Basophil# 0.04 X10^3/uL; Basophil% 0.9 % (0-1); Eosinophil# 0.34 X10^3/uL; Eosinophils% 7.3 % (0-5); Hematocrit 34.5 % (37-47); Lymphocyte # 1.83 X10^3/ul (4.0); Lymphocyte % 39.4 % (19-41); Mean Corp Hgb Conc 31.9 g/dL (32-36); Mean Corpuscular Hgb 28.9 pg (27.0-32.0); Mean Corpuscular Volume 90.6 fL (81-99); Mean Platelet Vol. 10.3 fl (6.2-12.0); Monocyte# 0.47 X10^3/uL; Monocyte% 10.1 % (0-10); NRBC Flagged by Analyzer 0 % (0-5); Neutrophil # 1.94 X10^3/uL (2.7-7.7); Neutrophil % 41.9 % (47-70); Platelet Count 200 K/mm3 (150-450); RBC Distribution Width CV 15.4 % (11.6-14.6); RBC Distribution Width SD 51.1 fl (35.1-43.9); Red Blood Count 3.81 M/mm3 (4.2-5.4); White Blood Count 4.6 K/mm3 (4.4-11.0)
[2019-07-27 06:56] LABS: ALB/GLOB Ratio 0.9 RATIO (0.9-2.4); AST(SGOT) 28 U/L (15-37); Alanine Aminotransfer ALT/SGPT 24 U/L (13-56); Albumin, Serum 3.2 g/dL (3.2-5.0); Alkaline Phosphatase 85 U/L (45-117); Anion Gap 8 (5-15); BUN 12 mg/dL (7-18); BUN/Creat Ratio 15.1 RATIO (10-20); Calcium,Total 8.6 mg/dL (8.5-10.1); Chloride 109 mmol/L (98-107); Cholesterol 275 mg/dL (200); EST Glomerular Filtration Rate 74 mL/min (>60); Est Glom Filt Rate - Afr Amer 89 mL/min (>60); Estimated Creatinine Clearance 43.62 ml/min; Globulin 3.6 g/dL (2.2-4.2); Glucose 94 mg/dL (74-106); High Density Lipoprotein 51 mg/dL; Protein, Total 6.8 g/dL (6.4-8.2); Sodium Level 141 mmol/L (136-145); Triglycerides 339 mg/dL; Very Low Density Lipoprotein 68 mg/dL (5-40)
[2019-07-27] MEDS: Folic Acid 1 MG Tablet PO (10:35)
[2019-07-27] MEDS: Multivitamin (Healthy Eyes) Capsule 2 CAP PO (10:35)
[2019-07-27] MEDS: Aspirin 81 MG TAB.CHEW PO (10:35)
[2019-07-27] MEDS: Multivitamins,Therapeutic Tablet 1 TABLET PO (10:36)
[2019-07-27] MEDS: Sertraline 50 MG Tablet PO (10:36)
--- NOTE | 2019-07-27 14:36 | CASEMGMT ---
GAGE SORTO NOTE: To room to review BEAL form with pt and . Introduced self and role of GAGE SORTO. BEAL form reviewed and pt/ deny having any questions. BEAL form signed by pt, copy made and placed on chart, and original given to pt. PT/OT evals have been completed. Vestibular therapy recommended. Discussed options of OP therapy with pt/. They are agreeable to OP therapy and would like to go to [facility]. Script obtained from Dr Turcios, faxed to [facility], and script given to /pt. They state they will call [facility] to schedule appts. They deny having any further needs or concerns/questions. Marie ROSENTHAL RN, CM
--- NOTE | 2019-07-27 16:00 | PCM.DC ---
- Discharge Diagnoses Current Active Problems: Current Active and Chronic Problems (Last Updated 06/28/19 @ 07:[address] Akbar Berumen MD) Vertigo (Acute) Hypertension (Chronic) Reason(s) for Visit for Discharge Instructions: Dizziness You will use the following diet at home:: Cardiac Your food should be the consistency of: Regular Your liquids should be the consistency of: Regular/Thin Discharge Activity: Return to Normal Activity Instructions: Understanding Dizziness, Balance Problems, and Fainting, Possible Causes of Dizziness or Fainting, Inner Ear Problems: Causes of Dizziness (Vertigo), Managing Balance Problems: Vestibular Rehabilitation Therapy, Understanding Dementia, Dementia: Coping Tips for Caregivers, Communicating with Dementia Patients Additional Instructions: Follow-up on vestibular therapy in outpatient. Continue to keep yourself hydrated. Continue to do the exercises prescribed. Allergies/Adverse Reactions: Allergies hydrochlorothiazide Allergy (Verified 07/26/19 10:27) Unknown nitrofurantoin [Nitrofurantoin] Allergy (Verified 07/26/19 10:27) Unknown NSAIDS (Non-Steroidal Anti-Inflamma Allergy (Verified 07/26/19 10:27) Unknown oxaprozin [From Daypro] Allergy (Verified 07/26/19 10:27) Unknown rofecoxib [From Vioxx] Allergy (Verified 07/26/19 10:27) Unknown Sulfa (Sulfonamide Antibiotics) Allergy (Verified 07/26/19 10:27) Hives Medications to take at Discharge Amlodipine [Norvasc] 2.5 mg PO DAILY 04/07/13 Aspirin [Aspirin, Baby] 81 mg PO DAILY@0800 04/07/13 Fluticasone 0.05% [Flonase Nasal [place]] 1 spray NASAL QHS PRN 04/07/13 Lisinopril [Zestril] 40 mg PO DAILY 04/07/13 Metoprolol(XL)Succ [Toprol Xl (Beta Garth)] 100 mg PO DAILY 04/07/13 Multivitamins,Therapeutic [Multivitamin] 1 tablet PO DAILY 04/07/13 Doxepin HCl 1 tab PO QHS 06/28/19 Vit C/E/Zn/Coppr/Lutein/Zeaxan [Preservision Areds 2 Softgel] 2 ea PO DAILY 06/28/19 Acetaminophen [Tylenol Tablet] 650 mg PO Q4H PRN PRN tab 06/30/19 Bifidobacter. Bifidum/B.longum [Florajen Bifidoblend Capsule] 460 mg PO DAILY 07/26/19 Desoximetasone 0.25% [Topicort Crm 0.25%] 1 applic TOPICAL BID 07/26/19 Folic Acid 1 mg PO DAILY 07/26/19 Hydrocortisone [Preparation H] 1 applic TP BID 07/26/19 Melatonin 10 mg PO DAILY 07/26/19 Sertraline HCl [Zoloft] 100 mg PO DAILY 07/26/19 Vitamin B Complex 1 ea PO DAILY 07/26/19 Atorvastatin Calcium [Lipitor] 40 mg PO QHS 30 Days #30 tab 07/27/19 Meclizine HCl [Antivert] 12.5 mg PO 4X/DAY PRN PRN #10 tab 07/27/19 The following prescriptions were given: Meclizine HCl [Antivert] 12.5 mg PO 4X/DAY PRN PRN #10 tab PRN Reason: Vertigo Transmission Status: Pending to [facility] [place] Atorvastatin Calcium [Lipitor] 40 mg PO QHS 30 Days #30 tab Transmission Status: Pending to [facility] [place] Primary Care Physician: Flavio Soriano MD [Primary Care Provider] - Please follow up with your Primary Care Physician in: within 1-2 weeks Test Results: Test results from this visit will be discussed in further detail at your follow-up appointment, if applicable. Proposed Discharge Date: 07/27/19
--- NOTE | 2019-07-27 16:09 | DS.PCM_ITS ---
Discharge Date and Diagnosis Date of Admission: 07/26/19 Date of Discharge: 07/27/19 - Primary Discharge Diagnosis Active and Suspected Problems (Last Updated 06/28/19 @ 07:[address] Akbar Berumen MD) Vertigo (Acute) - Secondary Discharge Diagnosis Chronic Problems (Last Updated 06/28/19 @ 07:[address] Akbar Berumen MD) Hypertension (Chronic) Hospital Course and Treatment Imaging Results: Clinical Impression(s) from Imaging Studies Brain CT 07/26/19 10:40 IMPRESSION: Chronic involutional changes of the brain. Electronically Signed: Tim Ortega, at 11:25 EST , Service support , Chest X-Ray 07/26/19 10:48 IMPRESSION: Hyperinflation. The lungs are clear. Electronically Signed: Tim Ortega, at 11:22 EST , Service support , Head/Neck CTA 07/26/19 11:26 IMPRESSION: No large vessel occlusion. 50-69% stenosis of the right ICA. Electronically Signed: Iggy Linder MD at 12:38 EST Tel , Service support , Brain MRI 07/26/19 14:14 IMPRESSION: No evidence of acute infarct or hemorrhage. Electronically Signed: Reinaldo Buckley MD at 21:27 EST Tel , Service support , None Procedures: None Summary of Care Provided: The patient is a 83 year old F with past medical history of hypertension, hearing impairment who comes in with sudden onset of dizziness and found to be unsteady. Her vitals were relatively stable. CT scan of the head showed chronic changes. CTA of the head and neck showed no large vessel occlusion but 50 to 69% stenosis of the right ICA. Chest x-ray was unremarkable. Patient was admitted to the floor as a stroke work-up. MRI of the brain was negative. She was seen by PT and OT and vestibular therapy was introduced to her Patient was not orthostatic at discharge. She was discharged on meclizine and given a prescription for outpatient vestibular therapy. Subjective: On the day of discharge, patient was seen and examined. Denied any new complaints. Dizziness was improved. MRI has been negative for acute stroke. Objective: Physical exam: General: Alert, Oriented x3, Cooperative, No apparent distress HEENT: Atraumatic, PERRLA, EOMI, Normocephalic Oral: Moist Mucosa Neck: Supple Lungs: Clear to auscultation, Normal air movement Cardiovascular: Regular rate, Regular Rhythm, Normal S1, Normal S2, No murmurs Abdomen: Bowel Sounds Present, Soft, Non Tender, Non-Distended, No Hepato- splenomegaly Extremities: No edema Skin: No rashes, No breakdown Musculoskeletal: No Tenderness to Palpation of Joints or Extremities Lymphatic: No Cervical, Supraclavicular, or Inguinal Adenopathy Neurological: Cranial nerves II-XII grossly intact, Neuro grossly intact, - - No nystagmus seen Psych/Mental Status: Normal Affect, Appropriate - Physical Exam Vitals/I&O's: Vital Signs Temp Pulse Resp BP Pulse Ox 97.5 F L 77 18 141/78 H 97 07/27/19 10:05 07/27/19 14:52 07/27/19 10:05 07/27/19 14:25 07/27/19 10:05 Oxygen Delivery Method Room Air Weight: 67.4 kg Body Mass Index (BMI) 26.4 Orthostatic Vital Signs Start: 07/27/19 13:40 Freq: X1 Status: Active Protocol: Activity Type Activity Date Activity User E-Sign Co-Sign Detail Recorded Client Recorded Date Recorded By Document 07/27/19 14:25 ZHENG [id number] 07/27/19 14:36 ZHENG 07/27/19 14:25 Orthostatic Vitals Standing -Blood Pressure (90/60-120/80) 159/91 H -Extremity Use Left Arm -Pulse Rate (60-100) 84 Sitting -Blood Pressure (90/60-120/80) 144/85 H -Extremity Use Left Arm -Pulse Rate (60-100) 75 Lying -Blood Pressure (90/60-120/80) 141/78 H -Extremity Use Left Arm -Pulse Rate (60-100) 72 Intake and Output for Last 24 Hours 07/25/19 07/26/19 07/27/19 23:59 23:59 23:59 Intake Total Output Total 100 / 100 Balance 191.67 / Laboratory Results 07/27/19 06:20: WBC 4.6, RBC 3.81 L, Hgb 11.0 L, Hct 34.5 L, MCV 90.6, MCH 28.9, MCHC 31.9 L, RDW Std Deviation 51.1 H, RDW Coeff of Jitendra 15.4 H, Plt Count 200, MPV 10.3, Immature Gran % (Auto) 0.400, Neut % (Auto) 41.9 L, Lymph % (Auto) 39.4, [place] % (Auto) 10.1 H, Eos % (Auto) 7.3 H, Baso % (Auto) 0.9, Absolute Neuts (auto) 1.9 L, Absolute Lymphs (auto) 1.83, Nucleated RBC % 0 07/27/19 06:20: Sodium 141, Potassium 4.0, Chloride 109 H, Carbon Dioxide 24.0, Anion Gap 8, BUN 12, Creatinine 0.80, Estim Creat Clear Calc 43.62, Est GFR (MDRD) Af Amer 89, Est GFR (MDRD) Non-Af 74, BUN/Creatinine Ratio 15.1, Glucose 94, Calcium 8.6, Total Bilirubin 0.20, AST 28, ALT 24, Alkaline Phosphatase 85, Total Protein 6.8, Albumin 3.2, Globulin 3.6, Albumin/Globulin Ratio 0.9, Triglycerides 339 H, Cholesterol 275 H, LDL Cholesterol 156 H, VLDL Cholesterol 68 H, HDL Cholesterol 51 Current Medications Acetaminophen (Tylenol) 650 mg PO Q4H PRN PRN PRN Reason: Pain Score 1-10/10 Al Hydroxide/Mg Hydroxide (Mylanta Ii) 30 ml PO Q6H PRN PRN PRN Reason: Gastric Burning Albuterol Sulfate (Ventolin Aerosols) 2.5 mg INHALATION Q2H PRN PRN PRN Reason: SOB/Wheezing Aspirin (Aspirin, Baby) 81 mg PO DAILY@0800 [facility] Last Admin: 07/27/19 10:35 Dose: 81 mg Documented by: Atorvastatin Calcium (Lipitor) 40 mg PO QHS [facility] Fluticasone Propionate (Flonase Nasal [place]) 1 spray NASAL QHS PRN PRN Reason: CONGESTION Folic Acid (Folic Acid) 1 mg PO DAILY@0800 [facility] Last Admin: 07/27/19 10:35 Dose: 1 mg Documented by: Heparin Sodium (Porcine) (Heparin Na) 5,000 unit SC Q8 [facility] Last Admin: 07/27/19 15:23 Dose: 5,000 unit Documented by: Magnesium Hydroxide (Milk Of Magnesia) 30 ml PO DAILY PRN PRN PRN Reason: Constipation Meclizine HCl (Antivert) 12.5 mg PO 4X/DAY PRN PRN PRN Reason: Vertigo Last Admin: 07/27/19 12:13 Dose: 12.5 mg Documented by: Melatonin (Melatonin) 10 mg PO QHS [facility] Last Admin: 07/26/19 21:23 Dose: 10 mg Documented by: [facility] Admin: 07/27/19 10:36 Dose: 1 tablet Documented by: Multivitamins/Minerals (Healthy Eyes (Bkc)) [facility] Last Admin: 07/27/19 10:35 Dose: 2 capsule Documented by: Ondansetron HCl (Zofran) 4 mg IV Q8H PRN PRN PRN Reason: NAUSEA/VOMITING Last Admin: 07/27/19 06:35 Dose: 4 mg Documented by: Sertraline HCl (Zoloft) 50 mg PO DAILY [facility] Last Admin: 07/27/19 10:36 Dose: 50 mg Documented by: Sodium Chloride () 10 - 40 ml IV UD PRN PRN Reason: SALINE FLUSH Last Admin: 07/27/19 06:35 Dose: 10 ml Documented by: Discharge Diet: Low fat/ Low Cholesterol, 2000 mg Sodium Diet Discharge Activity: Return to Normal Activity Home Medications: Medications to take at Discharge Amlodipine [Norvasc] 2.5 mg PO DAILY 04/07/13 Aspirin [Aspirin, Baby] 81 mg PO DAILY@0800 04/07/13 Fluticasone 0.05% [Flonase Nasal [place]] 1 spray NASAL QHS PRN 04/07/13 Lisinopril [Zestril] 40 mg PO DAILY 04/07/13 Metoprolol(XL)Succ [Toprol Xl (Beta Garth)] 100 mg PO DAILY 04/07/13 Multivitamins,Therapeutic [Multivitamin] 1 tablet PO DAILY 04/07/13 Doxepin HCl 1 tab PO QHS 06/28/19 Vit C/E/Zn/Coppr/Lutein/Zeaxan [Preservision Areds 2 Softgel] 2 ea PO DAILY 06/28/19 Acetaminophen [Tylenol Tablet] 650 mg PO Q4H PRN PRN tab 06/30/19 Bifidobacter. Bifidum/B.longum [Florajen Bifidoblend Capsule] 460 mg PO DAILY 07/26/19 Desoximetasone 0.25% [Topicort Crm 0.25%] 1 applic TOPICAL BID 07/26/19 Folic Acid 1 mg PO DAILY 07/26/19 Hydrocortisone [Preparation H] 1 applic TP BID 07/26/19 Melatonin 10 mg PO DAILY 07/26/19 Sertraline HCl [Zoloft] 100 mg PO DAILY 07/26/19 Vitamin B Complex 1 ea PO DAILY 07/26/19 Atorvastatin Calcium [Lipitor] 40 mg PO QHS 30 Days #30 tab 07/27/19 Meclizine HCl [Antivert] 12.5 mg PO 4X/DAY PRN PRN #10 tab 07/27/19 Following Prescrptions Were Given to Patient: Meclizine HCl [Antivert] 12.5 mg PO 4X/DAY PRN PRN #10 tab PRN Reason: Vertigo Transmission Status: Received by [facility] [place] Atorvastatin Calcium [Lipitor] 40 mg PO QHS 30 Days #30 tab Transmission Status: Received by [facility] [place] Primary Care Physician: Falvio Soriano MD [Primary Care Provider] - Please follow up with your Primary Care Physician in: within 1-2 weeks Patient Instructions: Understanding Dizziness, Balance Problems, and Fainting, Possible Causes of Dizziness or Fainting, Understanding Dementia, Inner Ear Problems: Causes of Dizziness (Vertigo), Managing Balance Problems: Vestibular Rehabilitation Therapy, Dementia: Coping Tips for Caregivers, Communicating with Dementia Patients Disposition: Home Minutes spent on discharge:: 40 Patient Condition:: Stable Medical Necessity - Tobacco Use Smoking Status: Former smoker Tobacco Use: Non-smoker Meaningful Use Info Meaningful Use Diagnoses (Choose all that apply): None applicable Code Visit OBSV E&M: 68083 Observation care discharge
== END 2019-07-27 16:52 | disposition home or self-care (01) ==
LOC: ED 11:32 → PCU 13:22
PROVIDERS: Admitting Provider Internal Medicine; Emergency Provider Emergency Medicine; PCP Family Medicine; Visit Provider Internal Medicine
DX: R42 Dizziness and giddiness (principal); I10 Essential (primary) hypertension; F03.90 Unspecified dementia, unspecified severity, without behavioral disturbance, psychotic disturbance, mood disturbance, and anxiety; Z79.899 Other long term (current) drug therapy; Z79.82 Long term (current) use of aspirin; Z87.891 Personal history of nicotine dependence; F32.9 Major depressive disorder, single episode, unspecified
CPT/HCPCS: 36415; 70450; 70496; 70498; 70551; 71045; 80053; 80061; 85025; 93005; 94762; 96361; 96372; 96374; 96376; 97162; 97167; 97802; 99218; 99251; 99285; J7030; Q9967; A4216; G0378; G0463; J2405

== ENCOUNTER 2019-12-22 15:00 | Outpatient (RCR) | payer MEDICARE, BC, SELFPAY ==
[2019-07-26 22:12] VITALS: BMI 26.4
--- NOTE | 2019-08-07 09:01 | HP.PTEVAL ---
Patient's Visit Information TATA SETHI is a 83 year old F referred to Physical Therapy by Daphne Turcios MD with a diagnosis of vertigo. Date of Evaluation: 08/07/19 Physical Therapist: Gabe García, JAIRO, OCS, CSCS - Visit Plan Frequency: 1-2x /Week Duration: 2-4 Weeks Plan: 1-2x/week for 2-4 as needed for positional treatments adn balance as needed. - Subjective Findings: I am dizzy. Got dizzy 1.5 weeks ago good days and bad days. Today is a bad day. Doctor said vertigo and woe up one day 3 am to go to bathroom and could not get out of bed. No sickness preceding. Went to ER adn tested for 2 hours with scans and blood and told either vertigo or ministroke adn MRI was Ok so diagnosed with vertigo. Had vertigo years ago visiting 3 different doctors and treated for vertigo somehow with exercises camilo helped. Not sure now what is casuing good or bad days. Today is bad at rest, feels lightheaded at rest. No spinning lately. Getting in bed makes her worse adn maybe spin for a short time. Bedning over can cause it. Needs help walking on bad days. Needs to hod counter to bend. Sleep is OK. Not employed. Activities are effected that she has to walk slowlya nd carefully. Also has dementia and hard time seeing due to this. Sees opthalmologist and neurologist for her dementia. Hobbies include travellign with camilo has put on hold as she feels poor. Likes to hang out with grandkids but hard lately. No AD needed to walk. no falls. - Objective Walks arm in arm with , wide THERESA, can go slowly I but uncomfortable. Trasnfers I. Balance is fair -. L hallpike precious -. + R hallpike precious up torsional 15 sec nystagmus with dizzyness. Treated with Lawson ramon - Hallpike precious. - Goals Goal 1:: abolish dizzyness with position change. Goal Time Frame: 2-4 Weeks Goal 2:: Walking back to normal without hesitation Goal Time Frame: 2-4 Weeks Goal 3:: Pt feel back to 100% as prior to dizzyness. Goal Time Frame: 2-4 Weeks - Rehabilitation Potential Physical Therapy Diagnosis: Vertigo BPPV. Rehabilitation Potential: Good - Anticipated Interventions Patient/Client Instruction: Educate patient on: Condition, Plan of Care For the Purpose of:: To increase tolerance to activity/condition/position, To improve balance Therapeutic Exercise to Include: Balance training Comment: vestibular positional treatments. For the Purpose of:: To increase tolerance to activity/condition/position, To improve safety Thank you for the opportunity to evaluate your patient. For Medicare and Medicare HMO plans, please review the plan of care and approve it. It will need to be FAXED BACK to us at [phone] for Medicare purposes. For Medicare only, by signing this I certify the plan of care. Please let me know if there are questions or concerns regarding this plan of care. Physician Signature: Date:
--- NOTE | 2019-12-20 11:15 | HP.PT.NRP ---
TATA SETHI was seen in my office for initial evaluation on 08/07/19. The following Plan of Care was established for this patient: Initial Frequency: 1-2x /Week Initial Duration: 2-4 Weeks Patient/Client Instruction: Educate patient on: Condition, Plan of Care For the Purpose of:: To increase tolerance to activity/condition/position, To improve balance Therapeutic Exercise to Include: Balance training For the Purpose of:: To increase tolerance to activity/condition/position, To improve safety This patient was last seen in our office 08/16/19. Pertinent comments regarding their Physical therapy will appear below: Pt seen 3 visits and then cancelled the rest due to Covid. she said she would call by end of October if she wished to return. at this point, it has been over 3 motnhs and I will disocntinue due to nonattendance. At this point I will be discontinuing this patient from physical therapy. I would be happy to see this patient again in the future if found appropriate by the physician. Thank you! Gabe García, DPT, OCS, CSCS
--- NOTE | 2019-12-22 15:38 | HP.PTDCSUM ---
It has been my pleasure to treat TATA SETHI referred by Dr. Flavio Soriano MD, with the diagnosis of vertigo for a total of 4 visit(s). Discharge Date: 12/22/19 Please see the following information for a summary of their discharge status. Subjective: Still can't see right and not sure why. Has not been back to doctor yet. Had 4 day period where was very dizzy 2 weeks ago when moving. Dizzyness had been pretty good prior. Could not get out of bed during that time. Was swaying around. Hard time walkign for those 4 days. Took it easy for a few days. % Improvement: 25 Objective/Function: Balance appears worse today confirmed by poor score on FGA. Pt admits dizzy is more unsteady feeling but got worse aall of a sudden two weeks ago. - B hallpike, - rol test. Oculomotor is unremarkable for nystagmus, slow with right adn left, slow with saccades adn pursuit and convergence but no symptoms. - ocular tilt. - skew eye deviation. OVERALL PATIENT DECIDED TO COME BACK AFTER LONG HIATUS DUE TO COVID AND PREVIOUS DISCHARGE SUMMARY OF NONATTENDANCE NULL AND VOID. SHE HAD EPISODE 2 WEEKS AGO OF INCREASING DIZZYNESS/UNSTEADINESS FOR 4 DAYS AND NEVER CALLED DOCTOR. SLOWLY BETTER BUT NOT BACK TO BASELINE. Goal 1:: abolish dizzyness with position change. Goal Progress: SETBACK Goal 2:: Walking back to normal without hesitation Goal Progress: SETBACK Goal 3:: Pt feel back to 100% as prior to dizzyness. Goal Progress: SETBACK Plan: BASED ON ABOVE PRESENTATION OF WROSENING OF SYMPTOMS AND LACK OF DOCTOR VISIT, I HAVE RECOMMENDED F/U WITH DOCTOR RAJANI TO CHECK FOR NONVESTIBULAR POSSIBLE CAUSES OF DIZZYNESS/UNSTEADINESS. I HAVE RECOMMENDED SHE USE [facility] AT ALL TIMES AND SHE HAS ACCESS TO ONE AT HOME. IF NO FURTHER MEDICAL TREATMENT WARRANTED, SHE MAY BE SENT BACK FOR BALANCE WORK HOWEVER SHE SEEMS TO BE COGNITIVELY AT DEFICIT WITH UNABLE TO TELL RIGHT FROM LEFT. WILL D/C CURRENT CHART AT THIS TIME. Discharge Comments: PT TO SCHEDULE WITH DOCTOR DUE TO DIZZY/UNSTEADYNEES WHICH DOES NOT APPEAR TO BE COMPLETELY VESTIBULAR. If there are questions or concerns regarding this patient's physical therapy, please feel free to call me at [phone]. Thank you for the referral of this patient. Sincerely, Gabe García, DPT, OCS, CSCS
== END 2019-12-22 19:00 | disposition home or self-care (01) ==
LOC: PT 15:00
PROVIDERS: PCP Family Medicine; Referring Provider Family Medicine; Visit Provider Family Medicine
DX: R42 Dizziness and giddiness (principal)
CPT/HCPCS: 97162; 97164; 97530

== ENCOUNTER 2022-08-05 16:58 | Emergency (ER) | payer MEDICARE, BC, SELFPAY ==
[2022-08-05 16:58] VITALS: BP 154/106; PULSE 88; RESP 16; TEMP 36.8; O2SAT 98
[2022-08-05 18:00] VITALS: BMI 26.8
--- NOTE | 2022-08-05 18:11 | CT_ITS ---
EXAM: CT SPINE - CERVICAL WITHOUT IV REASON FOR EXAM: Female, 86 years old. NECK PAIN polytrauma HISTORY: NECK PAIN polytrauma Individualized dose optimization techniques were used for this CT. TECHNIQUE: Multiplanar images were obtained of the cervical spine. IV contrast was not utilized. COMPARISON: None. FINDINGS: The vertebral bodies do maintain their height. The odontoid process is intact. No pre-vertebral soft tissue swelling is seen. The intravertebral disc height is lost. There are scattered lymph nodes in the neck. There are degenerative changes of the osseous structures. There is bilateral facet arthropathy. There are scattered levels of foraminal stenosis. There are vascular calcifications. CT/Spine Cervical without Contras IMPRESSION: Degenerative changes of the cervical spine. There is mild straightening of the normal cervical lordosis. This can suggest neck strain. Electronically Signed: Khanh Aly MD at 18:51 EST Reading Location ID and State: [facility] / [place] , Service support ,
--- NOTE | 2022-08-05 18:11 | RAD_ITS ---
EXAM: XR RIGHT HUMERUS, 2 OR MORE VIEWS CLINICAL INDICATION: injury TECHNIQUE: Frontal and lateral views of the right humerus. This report was created using [employer] report generation technology. COMPARISON: cxr 06.28.19 FINDINGS: BONES/JOINTS: Elevated right humeral head with eburnation of the acromion suggest a chronic rotator cuff tear. No acute fracture. No subluxation. Normal alignment. Preservation of the joint space. No sclerotic or destructive changes observed. SOFT TISSUES: Humeral anchors noted. One of the anchors is in the soft tissue. But this is a stable findings since the prior chest xray. No soft tissue swelling or gas. No radiopaque foreign body. RAD/Humerus min 2 Views IMPRESSION: Elevated right humeral head with eburnation of the acromion suggest a chronic rotator cuff tear. Electronically Signed: Khanh Aly MD at 18:54 EST Reading Location ID and State: [facility] / [place] , Service support ,
--- NOTE | 2022-08-05 18:11 | CT_ITS ---
STUDY: CT BRAIN WITHOUT CONTRAST REASON FOR EXAM: Female, 86 years old. polytrauma Individualized dose optimization techniques were used for this CT. TECHNIQUE: Transaxial CT imaging of the brain was performed without administration of intravenous contrast material. COMPARISON: 07.26.19 FINDINGS: There are calcifications around the carotid artery. These are noted in the cavernous carotid arteries. Normal calvarium. Normal soft tissues. There is mild cerebral atrophy with widening of the extra-axial spaces and ventricular dilatation. There are areas of decreased attenuation within the white matter tracts of the supratentorial brain, consistent with microvascular disease changes. Normal basal ganglia and thalami. Normal brainstem. There is mild cerebellar atrophy. There is no intracranial hemorrhage. There are no findings of an acute ischemic infarction. There is sinus disease. ASPECTS Score for Acute Strokes: 10 CT/Brain/Head without Contrast IMPRESSION: There are no acute findings. Chronic involutional changes of the brain. Electronically Signed: Khanh Aly MD at 18:51 EST ,
--- NOTE | 2022-08-05 18:11 | CT_ITS ---
EXAM: CT CHEST, ABDOMEN AND PELVIS WITHOUT INTRAVENOUS CONTRAST CLINICAL INDICATION: polytrauma TECHNIQUE: Helically acquired images were obtained of the chest, abdomen and pelvis without intravenous contrast. This CT exam was performed using one or more of the following dose reduction techniques: automated exposure control, adjustment of the mA and/or kV according to patient size, and/or use of iterative reconstruction technique. This report was created using [employer] report generation technology. RADIATION DOSE: CTDIvol = 20.65 mGy, DLP = 1685.35 mGy-cm COMPARISON: None. FINDINGS: CHEST: LUNGS AND PLEURAL SPACES: There is no pneumothorax. There is no demonstrated pleural abnormality. No mass. HEART: There are calcifications of the coronary arteries. Heart size is normal. No pericardial effusion. MEDIASTINUM: Unremarkable. No mediastinal or hilar adenopathy. Esophagus is unremarkable. No hiatal hernia. THYROID: Unremarkable. No thyroid lesions. ABDOMEN: LIVER: Unremarkable. Normal liver. GALLBLADDER AND BILE DUCTS: There is non-visualization of the gallbladder, which may be secondary to either contraction or a prior cholecystectomy. No intra- or extrahepatic biliary ductal dilation. PANCREAS: Unremarkable. No focal cystic mass. Normal pancreas. SPLEEN: Unremarkable. Normal spleen. ADRENALS: Unremarkable. Normal bilateral adrenal glands. KIDNEYS AND URETERS: Unremarkable. Normal renal size and position. No hydronephrosis. No acute findings of the right kidney. No acute findings of the left kidney. STOMACH AND BOWEL: There are multiple colonic diverticula consistent with diverticulosis. No stomach or bowel distention. No focal inflammatory change. Normal visualized stomach. Normal small intestine. PELVIS: APPENDIX: There is non-visualization of the appendix. BLADDER: Unremarkable. Normal urinary bladder. REPRODUCTIVE: There is atrophy of the uterus. CHEST, ABDOMEN and PELVIS: INTRAPERITONEAL SPACE: Unremarkable. No ascites or other fluid collection. No free air. BONES/JOINTS: There are degenerative changes of the shoulders. There are multi-level degenerative changes of the thoracic spine. There are diffuse degenerative changes of the visualized lumbar spine. SOFT TISSUES: Left inguinal hernia containing a portion of the urinary bladder. There is an umbilical hernia containing fat. There are bilateral pars articularis defects at L5-S1. There is a Grade 1 anterolisthesis of L5 on S1. There is bilateral neural foraminal stenosis at L4-5 and L5-S1. VASCULATURE: There is atherosclerotic calcification of the aortic arch with tortuosity and elongation of the aortic arch and descending thoracic aorta. There are calcifications of the abdominal aorta. This is consistent for atherosclerotic disease. There is no abdominal aortic aneurysm. LYMPH NODES: Unremarkable. No enlarged lymph nodes. CT/CT Chest, Abd, Pelvis WO Cont IMPRESSION: Left inguinal hernia containing a portion of the urinary bladder. Electronically Signed: Khanh Aly MD at 19:08 EST ,
--- NOTE | 2022-08-05 18:12 | EDS_ITS ---
HPI HPI - Fall History of Present Illness Chief Complaint: Fall Informant: spouse/S.O. and family Narrative Narrative: Informant daughter and spouse Limited due to significant dementia history. Unwitnessed fall earlier today, patient was reported going to sit on her chair when she missed it and there was a side stand next to it. Reported she skidded her bottom to the bedroom to the bed when a neighbor came to help her get up right into bed she did not ambulate. Occasionally uses a walker however walks slowly per daughter. Currently on baby aspirin therapy. Reported she did not complain of pain initially however here recently pain to the ribs and right arm. No nausea or vomiting. Patient baseline on her dementia. [facility] Medical History HTN (hypertension) Home Medications aspirin 81 mg chewable tablet 81 mg PO DAILY@0800 heart 04/07/13 [History Last Taken Unknown] fluticasone propionate 50 mcg/actuation nasal spray,suspension 1 spray QHS PRN Congestion 04/07/13 [History Last Taken Unknown] lisinopril 40 mg tablet 40 mg PO DAILY blood pressure 04/07/13 [History Last Taken Unknown] multivitamin with folic acid 400 mcg tablet (Thera) 1 tab PO DAILY supplement 04/07/13 [History Last Taken Unknown] doxepin 25 mg capsule 1 tab PO QHS depression 06/28/19 [History Last Taken Unknown] acetaminophen 325 mg tablet 650 mg PO Q4H PRN PRN Pain Score 1-10/10 06/30/19 [Rx Last Taken Unknown] meclizine 12.5 mg tablet 12.5 mg PO 4X/DAY PRN PRN Vertigo #10 tabs 07/27/19 [Rx Last Taken Unknown] atorvastatin 80 mg tablet 80 mg PO QHS 01/14/22 [History Last Taken Unknown] buspirone 15 mg tablet 15 mg PO BID 01/14/22 [History Last Taken Unknown] cholecalciferol (vitamin D3) 1,250 mcg (50,000 unit) tablet 1,250 mcg PO QWEEK 01/14/22 [History Last Taken Unknown] donepezil 5 mg tablet 5 mg PO QHS 01/14/22 [History Last Taken Unknown] metoprolol succinate 100 mg tablet,extended release 24 hr 100 mg PO DAILY 01/14/22 [History Last Taken Unknown] sertraline 100 mg tablet 100 mg PO DAILY 01/14/22 [History Last Taken Unknown] vitamins A,C,P-jdta-lchceb 4,296 mcg-226 mg-90 mg capsule (PreserVision AREDS) 1 cap PO BID 01/14/22 [History Last Taken Unknown] Allergy/AdvReac Type Severity Reaction Status Date / Time hydrochlorothiazide Allergy Unknown Verified 08/05/22 17:02 nitrofurantoin Allergy Unknown Verified 08/05/22 17:02 [Nitrofurantoin] NSAIDS (Non-Steroidal Allergy Unknown Verified 08/05/22 17:02 Anti-Inflamma oxaprozin [From Daypro] Allergy Unknown Verified 08/05/22 17:02 rofecoxib [From Vioxx] Allergy Unknown Verified 08/05/22 17:02 Sulfa (Sulfonamide Allergy Hives Verified 08/05/22 17:02 Antibiotics) Social History Smoking Status: Former smoker ROS ROS ED Review of Systems ROS Unobtainable: due to mental condition Musculoskeletal Musculoskeletal: Reports other Details: Right arm pain, rib pain EXAM Physical Exam Const Vital Signs: 08/05/22 16:58 08/05/22 16:58 08/05/22 20:37 Temperature 98.2 F Temperature Source Temporal Pulse Rate 88 78 Respiratory Rate 16 16 Respiratory Effort Normal Non-Labored Respiratory Depth Normal Respiratory Pattern Normal Blood Pressure 154/106 H 146/80 H Blood Pressure Mean 122 Pulse Ox 98 Oxygen Delivery Method Room Air Positive well nourished and well developed Constitutional Narrative: Nontoxic General Appearance ED: well developed and NAD HEENT Reports normocephalic, TM's clear, TM's normal bilaterally and moist mucous membranes normocephalic and atraumatic Tympanic Membrane ED: Yes TM's clear Eyes PERRL, EOMs intact bilaterally and conjunctivae normal General Eye ED: Yes normal appearance of both eyes Neck no lymphadenopathy and supple General: Negative for tenderness Chest Wall Chest Narrative: Tenderness on the upper chest bilaterally no crepitus no ecchymosis Chest: Negative for tenderness Resp normal respiratory effort and normal air movement Resp Narrative: Symmetric breath sounds Effort and Inspection: symmetric chest movement; Negative for respiratory distress Cardio regular rate, regular rhythm and no murmurs Peripheral Pulses: pulses 2+ throughout GI normal to inspection, nondistended, normoactive bowel sounds and non-tender Palpation: Negative for guarding or rebound tenderness present Back/Spine no CVA tenderness and no thoracic nor lumbar tenderness Extremity Extremity Narrative: Right upper extremity: Pain when trying to extend the elbow there is no deformities no pain of the forearm. No swelling of the elbow no deformities of the shoulder skin intact. Neuro vas intact Left upper extremity: Full range of motion without pain no deformities. Skin intact. Lower extremities negative logroll, no deformities no pain in the knee or ankles. General Extremety ED: Negative for edema or tenderness General Extremity: Negative for edema Neuro no sensory deficits noted Sensorium / Orientation: awake and alert Skin no rashes or lesions noted and no wounds MDM MDM MDM Narrative Medical decision making narrative: Interventions / MDM: Differential diagnosis: Intracranial hemorrhage, cervical fracture, rib fractures, upper extremity fractures, contusions Diagnosis considered but do not suspect: N/A My EKG interpretation: N/A Imaging independently reviewed and interpreted by myself: CT head/neck/chest abdomen pelvis per radiology shows no acute process. X-ray right humerus and elbow no fracture or dislocation. External documents reviewed: N/A Test considered but not ordered:N/A ED course: Patient demented unable provide clear direct areas of pain on exam upper chest pains elbow pain on the right side. Unwitnessed fall. CT imaging is obtained and all x-rays are negative. Family is reassured. She is given Tylenol in the ED they will use this at home to follow symptoms. All questions were answered. Re-evaluation: stable Disposition discussed with patient/family/significant other: Patient and family Case discussed with consulting clinician: N/A History & Record Review Discussion w/independent historian: Other (Family members) Radiography Diagnostic Testing: Clinical Impression(s) from Imaging Studies Brain CT 08/05/22 18:11 IMPRESSION: There are no acute findings. Chronic involutional changes of the brain. Electronically Signed: Khanh Aly MD at 18:51 EST Reading Location ID and State: [facility] / [place] , Service support , Cervical Spine CT 08/05/22 18:11 IMPRESSION: Degenerative changes of the cervical spine. There is mild straightening of the normal cervical lordosis. This can suggest neck strain. Electronically Signed: Khanh Aly MD at 18:51 EST , Chest/Abdomen/Pelvis CT 08/05/22 18:11 IMPRESSION: Left inguinal hernia containing a portion of the urinary bladder. Electronically Signed: Khanh Aly MD at 19:08 EST , Humerus X-Ray 08/05/22 18:11 IMPRESSION: Elevated right humeral head with eburnation of the acromion suggest a chronic rotator cuff tear. Electronically Signed: Khanh Aly MD at 18:54 EST Reading Location ID and State: [facility] / [place] , Service support , Elbow X-Ray 08/05/22 18:35 IMPRESSION: Negative right elbow. Electronically Signed: Khanh Aly MD at 18:52 EST , Discharge Plan Triage Chief Complaint: Fall ED Provider: [employer] Deal Dx/Rx/DC Orders Clinical Impression: Fall, Chest wall contusion, History of dementia, Contusion of arm, right Instructions: Bruises (Contusions), ED Chest Wall Contusion Prescriptions: No Action aspirin 81 MG tablet,chewable 81 mg PO DAILY@0800 lisinopril 40 MG tablet 40 mg PO DAILY fluticasone propionate 1 SPRAY spray,suspension 1 spray NASAL QHS PRN (Reason: Congestion) multivitamin with folic acid [Thera] 1 TABLET tablet 1 tab PO DAILY doxepin 25 MG capsule 1 tab PO QHS acetaminophen 325 MG tablet 650 mg PO Q4H PRN PRN (Reason: Pain Score 1-10/10) 0RF meclizine 12.5 MG tablet 12.5 mg PO 4X/DAY PRN PRN (Reason: Vertigo) Qty: 10 0RF atorvastatin 80 mg Tablet 80 mg PO QHS metoprolol succinate 100 mg Tablet Extended Release 24 Hr 100 mg PO DAILY sertraline 100 mg Tablet 100 mg PO DAILY buspirone 15 mg Tablet 15 mg PO BID donepezil 5 mg Tablet 5 mg PO QHS PreserVision AREDS [id number] [id number] Capsule 1 cap PO BID cholecalciferol (vitamin D3) 1,250 mcg (50,000 unit) Tablet 1,250 mcg PO QWEEK Primary Care Provider: Flavio Soriano Referrals: Flavio Soriano MD [Primary Care Provider] - 1 Week if not improving Activity Restrictions/Additional Instructions: CT scan head neck chest abdomen pelvis negative. X-ray of right humerus and elbow negative. Use Tylenol up to 1 g every 6 hours as needed. Follow-up with your doctor. Disposition Disposition: Home, Self Care Discharge Date/Time: 08/05/22 20:38
--- NOTE | 2022-08-05 18:35 | RAD_ITS ---
EXAM: XR RIGHT ELBOW COMPLETE, 3 OR MORE VIEWS CLINICAL INDICATION: injury TECHNIQUE: Frontal, lateral and oblique views of the right elbow. This report was created using [email or web address] report generation technology. COMPARISON: None. FINDINGS: BONES/JOINTS: Unremarkable. There is no displacement of the anterior or posterior fat pads. No acute fracture. No subluxation. Normal alignment. Preservation of the joint space. No destructive or sclerotic lesions. SOFT TISSUES: Unremarkable. No soft tissue swelling or gas. No radiopaque foreign body. RAD/Elbow min 3 Views IMPRESSION: Negative right elbow. Electronically Signed: Khanh Aly MD at 18:52 EST ,
[2022-08-05] MEDS: Acetaminophen 650 MG Suppository RC (20:36)
[2022-08-05 20:37] VITALS: BP 146/80; PULSE 78; RESP 16
== END 2022-08-05 20:38 | disposition home or self-care (01) ==
PROVIDERS: Emergency Provider Emergency Medicine; PCP Family Medicine; Visit Provider Emergency Medicine
DX: S40.021A Contusion of right upper arm, initial encounter (principal); F03.90 Unspecified dementia, unspecified severity, without behavioral disturbance, psychotic disturbance, mood disturbance, and anxiety; S20.20XA Contusion of thorax, unspecified, initial encounter; I10 Essential (primary) hypertension; Z87.891 Personal history of nicotine dependence; W19.XXXA Unspecified fall, initial encounter
CPT/HCPCS: 70450; 71250; 72125; 73060; 73080; 74176; 99282

== ENCOUNTER 2022-08-28 12:13 | Emergency (ER) | payer MEDICARE, BC, SELFPAY ==
[2022-08-28] VITALS (7 sets, daily range): BP systolic 111–141; BP diastolic 64–85; PULSE 59–74; RESP 16–19; TEMP 36.3; O2SAT 96–98; BMI 26.9
--- NOTE | 2022-08-28 12:22 | CT_ITS ---
STUDY: CT FACIAL BONES WITHOUT CONTRAST REASON FOR EXAM: Female, 86 years old. Head injury RADIATION DOSAGE (If Supplied By Facility): CTDIvol = ( 29.38 ) mGy, DLP = ( 576.84 ) mGycm TECHNIQUE: The patient was scanned in a multi detector CT scanner. Sagittal and coronal images were reconstructed. Individualized dose optimization techniques were used for this CT. COMPARISON: None. FINDINGS: Normal soft tissue structures. Normal orbital cazares and orbital contents. Nondisplaced nasal fracture. Normal facial bones. Soft tissue prominence within the nasal cavities suggestive of possible blood. Mucosal thickening of the ethmoid sinuses and mucosal thickening of the right maxillary sinus. CT/Sinus/Facial Bone IMPRESSION: Fracture of the nasal bones. Fullness of the nasal cavity suggests blood. Electronically Signed: Tim Ortega MD at 13:12 EDT ,
--- NOTE | 2022-08-28 12:22 | CT_ITS ---
STUDY: CT BRAIN WITHOUT CONTRAST REASON FOR EXAM: Female, 86 years old. Head injury following a fall. RADIATION DOSAGE (If Supplied By Facility): CTDIvol = ( 44.99 ) mGy, DLP = ( 796.11 ) mGycm TECHNIQUE: Transaxial CT imaging of the brain was performed without administration of intravenous contrast material. Individualized dose optimization techniques were used for this CT. COMPARISON: Comparison is made with prior study dated August 05, 2022. FINDINGS: Normal soft tissue structures. Normal calvarium. There is moderate cerebral atrophy with widening of the extra-axial spaces and ventricular dilatation. There are areas of decreased attenuation within the white matter tracts of the supratentorial brain, consistent with microvascular disease changes. There are small punctate calcifications of the basal ganglia which are seen in the aging brain as a normal variant. Normal brainstem. Normal cerebellum. There is no intracranial hemorrhage. There are no findings of an acute ischemic infarction. Atherosclerotic calcification of the cavernous portions of the internal carotid arteries bilaterally. Soft tissue prominence within the nasal cavity. This may represent blood. Nondisplaced nasal fracture. Small air-fluid level is seen within the right maxillary sinus. CT/Brain/Head without Contrast IMPRESSION: Chronic involutional changes of the brain. Findings in keeping with a nasal fracture and possible blood within the nasal cavities. Small air-fluid level in the right maxillary sinus. Electronically Signed: Tim Ortega MD at 13:10 EDT ,
--- NOTE | 2022-08-28 12:22 | CT_ITS ---
STUDY: CT CERVICAL SPINE WITHOUT CONTRAST REASON FOR EXAM: Female, 86 years old. Cervicalgia following a fall. RADIATION DOSAGE (If Supplied By Facility): CTDIvol = ( 18.38 ) mGy, DLP = ( 444.11 ) mGycm TECHNIQUE: High resolution transaxial imaging was performed without contrast material. Sagittal and coronal images were reconstructed. Individualized dose optimization techniques were used for this CT. COMPARISON: Comparison is made with prior examination dated August 05, 2022. FINDINGS: Normal craniovertebral junction. There are degenerative changes of the anterior atlantoaxial articulation. Normal odontoid process. There is straightening of the normal cervical lordosis. Multilevel spondylosis. C2-3: Mild degree of disc space narrowing. Facet joint osteoarthritis and hypertrophy worse on the right side. C3-4: Mild degree of disc space narrowing. Facet joint osteoarthritis and hypertrophy more prominent on the left side. There is evidence of bilateral neural foraminal stenosis. C4-5: Marked degree of disc space narrowing. Spondylosis. Uncovertebral arthrosis. Moderate degree of bilateral neural foraminal stenosis. C5-6: Marked degree of disc space narrowing. Spondylosis. Uncovertebral arthrosis. Moderate degree of bilateral neural foraminal stenosis. C6-7: Mild degree of disc space narrowing. Posterior central spondylosis causing minimal deformity of the thecal sac. C7-T1: Normal endplates. Normal disc height and morphology. Normal central canal and intervertebral neuroforamina. Atherosclerotic calcification of the carotid bifurcations bilaterally. CT/Spine Cervical without Contras IMPRESSION: Multilevel degenerative changes, as described above. Stable examination. Electronically Signed: Tim Ortega MD at 13:36 EDT ,
--- NOTE | 2022-08-28 12:29 | EDS_ITS ---
HPI <TORRIE Rivera - Last Filed: 08/28/22 16:23> HPI - Fall History of Present Illness Chief Complaint: Fall Narrative Narrative: 86-year-old female was brought in by EMS from [facility]. She has a history of dementia and had a fall with facial lacerations. I spoke with her nurse at [facility] who states she had stood up and fell forward striking her face on the ground. No LOC. No blood thinners. Patient just moved to [facility] recently and they states she is fallen 2-3 times but had no injuries before today. No recent illness. Her baseline is alert and oriented to self only. PENDING SALE TO [facility] <TORRIE Rivera - Last Filed: 08/28/22 16:23> PENDING SALE TO [facility] Medical History HTN (hypertension) Home Medications aspirin 81 mg chewable tablet 81 mg PO DAILY@0800 heart 04/07/13 [History Last Taken Unknown] fluticasone propionate 50 mcg/actuation nasal spray,suspension 1 spray QHS PRN Congestion 04/07/13 [History Last Taken Unknown] lisinopril 40 mg tablet 40 mg PO DAILY blood pressure 04/07/13 [History Last Taken Unknown] multivitamin with folic acid 400 mcg tablet (Thera) 1 tab PO DAILY supplement 04/07/13 [History Last Taken Unknown] doxepin 25 mg capsule 1 tab PO QHS depression 06/28/19 [History Last Taken Unknown] acetaminophen 325 mg tablet 650 mg PO Q4H PRN PRN Pain Score 1-10/10 06/30/19 [Rx Last Taken Unknown] meclizine 12.5 mg tablet 12.5 mg PO 4X/DAY PRN PRN Vertigo #10 tabs 07/27/19 [Rx Last Taken Unknown] atorvastatin 80 mg tablet 80 mg PO QHS 01/14/22 [History Last Taken Unknown] buspirone 15 mg tablet 15 mg PO BID 01/14/22 [History Last Taken Unknown] cholecalciferol (vitamin D3) 1,250 mcg (50,000 unit) tablet 1,250 mcg PO QWEEK 01/14/22 [History Last Taken Unknown] donepezil 5 mg tablet 5 mg PO QHS 01/14/22 [History Last Taken Unknown] metoprolol succinate 100 mg tablet,extended release 24 hr 100 mg PO DAILY 01/14/22 [History Last Taken Unknown] sertraline 100 mg tablet 100 mg PO DAILY 01/14/22 [History Last Taken Unknown] vitamins A,C,V-dpiv-asbrac 4,296 mcg-226 mg-90 mg capsule (PreserVision AREDS) 1 cap PO BID 01/14/22 [History Last Taken Unknown] cephalexin 500 mg capsule 500 mg PO Q12 #14 CAPSULES 08/28/22 [Rx Last Taken Unknown] Allergy/AdvReac Type Severity Reaction Status Date / Time hydrochlorothiazide Allergy Unknown Verified 08/05/22 17:02 memantine [From Namenda] Allergy PT UNSURE Verified 08/28/22 12:30 OF REACTION nitrofurantoin Allergy Unknown Verified 08/05/22 17:02 [Nitrofurantoin] NSAIDS (Non-Steroidal Allergy Unknown Verified 08/05/22 17:02 Anti-Inflamma oxaprozin [From Daypro] Allergy Unknown Verified 08/05/22 17:02 rofecoxib [From Vioxx] Allergy Unknown Verified 08/05/22 17:02 Sulfa (Sulfonamide Allergy Hives Verified 08/05/22 17:02 Antibiotics) Social History Smoking Status: Former smoker ROS <TORRIE Rivera - Last Filed: 08/28/22 16:23> ROS ED ROS Narrative Unable to obtain due to mental status EXAM <TORRIE Rivera - Last Filed: 08/28/22 16:23> Physical Exam Narrative Exam Narrative: CONST: Patient sitting in no acute distress. EYES: Normal inspection. HEAD: 2 cm laceration above right eyebrow, 2 cm laceration on the bridge of the nose. No facial bone deformity or crepitus, no nasal septal dull hematoma or hemotympanums, no raccoon eyes or agudelo sign. No CSF otorrhea or rhinorrhea. NECK: Normal inspection. No midline spinal tenderness, no step off or crepitus. RESP: No respiratory distress, CTAB. CVS: Regular rate and rhythm, no murmur, no gallop. Chest wall nontender. ABD: Soft and nontender, no guarding or rebound, nondistended. Back: Normal inspection, no midline spinal tenderness, no step off or crepitus. SKIN: Facial lacerations. EXTREMITIES: Normal appearance, ecchymosis and tenderness over right anterior shoulder with limited range of motion due to pain. No other bony tenderness of upper or lower extremities, 2+ radial and DP pulses. NEURO: Oriented to self only. PSYCH: Normal affect. Const Vital Signs: 08/28/22 12:15 08/28/22 12:32 08/28/22 13:23 Temperature 97.4 F L 97.4 F L Temperature Source Temporal Pulse Rate 65 59 L Pulse Rate [Lying] Pulse Rate [Sitting (for 1 minute prior to obtaining)] Pulse Rate [Standing (for 1 minute prior to obtaining)] Respiratory Rate 18 17 Respiratory Effort Normal Non-Labored Respiratory Depth Normal Respiratory Pattern Normal Blood Pressure 141/85 H 126/82 H Blood Pressure [Lying] Blood Pressure [Sitting (for 1 minute prior to obtaining)] Blood Pressure [Standing (for 1 minute prior to obtaining)] Blood Pressure Mean 103 96 Blood Pressure Mean [Lying] Blood Pressure Mean [Sitting (for 1 minute prior to obtaining)] Blood Pressure Mean [Standing (for 1 minute prior to obtaining)] Pulse Ox 98 98 98 Oxygen Delivery Method Room Air Room Air Room Air 08/28/22 14:08 08/28/22 15:32 08/28/22 15:32 Temperature Temperature Source Pulse Rate 62 Pulse Rate [Lying] 62 Pulse Rate [Sitting (for 1 minute prior to obtaining)] 74 Pulse Rate [Standing (for 1 minute prior to obtaining)] 74 Respiratory Rate 19 H 18 Respiratory Effort Respiratory Depth Respiratory Pattern Blood Pressure 125/64 H 130/70 H Blood Pressure [Lying] 130/70 H Blood Pressure [Sitting (for 1 minute prior to obtaining)] 129/84 H Blood Pressure [Standing (for 1 minute prior to obtaining)] 111/65 Blood Pressure Mean 84 90 Blood Pressure Mean [Lying] 90 Blood Pressure Mean [Sitting (for 1 minute prior to obtaining)] 99 Blood Pressure Mean [Standing (for 1 minute prior to obtaining)] 80 Pulse Ox 96 Oxygen Delivery Method Room Air Room Air <Dr. Seema Lyman, DO - Last Filed: 08/31/22 21:34> Physical Exam Const Vital Signs: 08/28/22 12:15 08/28/22 12:32 03/24/23 13:23 Temperature 97.4 F L 97.4 F L Temperature Source Temporal Pulse Rate 65 59 L Pulse Rate [Lying] Pulse Rate [Sitting (for 1 minute prior to obtaining)] Pulse Rate [Standing (for 1 minute prior to obtaining)] Respiratory Rate 18 17 Respiratory Effort Normal Non-Labored Respiratory Depth Normal Respiratory Pattern Normal Blood Pressure 141/85 H 126/82 H Blood Pressure [Lying] Blood Pressure [Sitting (for 1 minute prior to obtaining)] Blood Pressure [Standing (for 1 minute prior to obtaining)] Blood Pressure Mean 103 96 Blood Pressure Mean [Lying] Blood Pressure Mean [Sitting (for 1 minute prior to obtaining)] Blood Pressure Mean [Standing (for 1 minute prior to obtaining)] Pulse Ox 98 98 98 Oxygen Delivery Method Room Air Room Air Room Air 08/28/22 14:08 08/28/22 15:32 08/28/22 15:32 Temperature Temperature Source Pulse Rate 62 Pulse Rate [Lying] 62 Pulse Rate [Sitting (for 1 minute prior to obtaining)] 74 Pulse Rate [Standing (for 1 minute prior to obtaining)] 74 Respiratory Rate 19 H 18 Respiratory Effort Respiratory Depth Respiratory Pattern Blood Pressure 125/64 H 130/70 H Blood Pressure [Lying] 130/70 H Blood Pressure [Sitting (for 1 minute prior to obtaining)] 129/84 H Blood Pressure [Standing (for 1 minute prior to obtaining)] 111/65 Blood Pressure Mean 84 90 Blood Pressure Mean [Lying] 90 Blood Pressure Mean [Sitting (for 1 minute prior to obtaining)] 99 Blood Pressure Mean [Standing (for 1 minute prior to obtaining)] 80 Pulse Ox 96 Oxygen Delivery Method Room Air Room Air [facility] <TORRIE Rivera - Last Filed: 08/28/22 16:23> [facility] Narrative Medical decision making narrative: History gathered from: Nurse at SNF, family Patient had a witnessed fall at her SNF with closed head injury. No LOC or blood thinners. She has lacerations of her right frontal scalp and nose. No si gns of basilar skull fracture. She is awake and alert to self which is her baseline. GCS 15. She also has a right anterior shoulder contusion with tenderness. Slightly limited range of motion. Distal pulses intact. No other injuries noted on exam. CT scans of her head, neck, and face show a nasal fracture with blood in the nasal cavity. X-rays of chest, right shoulder and pelvis all negative for traumatic findings. I anesthetized the 2.5 cm right scalp laceration with 3 cc of 1% lidocaine. I thoroughly cleansed both the forehead and nasal lacerations with sterile saline. The forehead laceration was prepped and draped in sterile condition and closed with 4 simple erupted sutures of 5-0 Ethilon. Since there is a nasal fracture and that laceration is already approximated I do not want to close it due to risk of infection. Tetanus was updated and she was given Keflex for the open nasal fracture with a prescription for home. Since originally I do not know the fall was witnessed and mechanical until I spoke with her nurse at [facility], labs were obtained. She has a leukocytosis of 13.7. Normal hemoglobin. Unremarkable electrolytes and renal function. UA is negative. Patient has no signs and symptoms of infection so this leukocytosis is really nonspecific. She will be discharged back to SNF in stable condition. Differential: Facial lacerations, intracranial bleed, skull fracture Lab Data Attestation: I reviewed the patient's lab results. Labs: Laboratory Results - last 24 hr 08/28/22 08/28/22 08/28/22 14:15 14:15 14:58 WBC 13.7 H RBC 4.10 L Hgb 12.3 Hct 38.0 MCV 92.7 MCH 30.0 MCHC 32.4 RDW Std Deviation 50.8 H RDW Coeff of Jitendra 14.8 H Plt Count 264 MPV 10.2 Immature Gran % (Auto) 0.900 Neut % (Auto) 81.6 H Lymph % (Auto) 9.6 L Kendall % (Auto) 5.6 Eos % (Auto) 1.9 Baso % (Auto) 0.4 Absolute Neuts (auto) 11.2 H Absolute Lymphs (auto) 1.32 Nucleated RBC % 0 Sodium 137 Potassium 4.2 Chloride 104 Carbon Dioxide 23.0 Anion Gap 10 BUN 26 H Creatinine 0.89 Estim Creat Clear Calc 42.34 Est GFR (MDRD) Af Amer 78 Est GFR (MDRD) Non-Af 64 BUN/Creatinine Ratio 29.2 H Glucose 108 H Calcium 9.4 Urine Color Yellow Urine Clarity Clear Urine pH 6.0 Ur Specific [place] 1.015 Urine Protein Negative Urine Glucose (UA) Normal Urine Ketones Negative Urine Occult Blood Negative Urine Nitrite Negative Urine Bilirubin Negative Urine Urobilinogen Normal Ur Leukocyte Esterase Negative Urine RBC 0 SEEN Urine WBC 0-5 SEEN Ur Squamous Epith Cells 0-5 SEEN Urine Bacteria 0 SEEN Urine Mucus 0 SEEN Radiography Diagnostic Testing: Clinical Impression(s) from Imaging Studies Brain CT 08/28/22 12:22 IMPRESSION: Chronic involutional changes of the brain. Findings in keeping with a nasal fracture and possible blood within the nasal cavities. Small air-fluid level in the right maxillary sinus. Electronically Signed: Tim Ortega MD at 13:10 EDT , Cervical Spine CT 08/28/22 12:22 IMPRESSION: Multilevel degenerative changes, as described above. Stable examination. Electronically Signed: Tim Ortega MD at 13:36 EDT Reading Location ID and State: [facility] / [place] , Service support , Facial/Sinus 08/28/22 12:22 IMPRESSION: Fracture of the nasal bones. Fullness of the nasal cavity suggests blood. Electronically Signed: Tim Ortega MD at 13:12 EDT Reading Location ID and State: [facility] / [place] , Service support , Chest X-Ray 08/28/22 13:00 IMPRESSION: Mild cardiomegaly. The lungs are clear. Electronically Signed: Tim Ortega MD at 13:27 EDT , Pelvis X-Ray 08/28/22 13:00 IMPRESSION: Degenerative changes. No fracture or dislocation is seen. Electronically Signed: Tim Ortega MD at 13:29 EDT Reading Location ID and State: [facility] / [place] , Service support , Shoulder X-Ray 08/28/22 13:00 IMPRESSION: Osteoarthritis of the glenohumeral joint. Prior rotator cuff surgery. No acute fracture is seen. Electronically Signed: Tim Ortega MD at 13:28 EDT , ED attending interpretation of chest x-ray shows no evidence of displaced rib fracture or pneumothorax. ED attending interpretation of right shoulder looks unchanged from previous. EKG Initial EKG: Attestation: I personally reviewed and interpreted this EKG as follows: Comments: ED attending interpretation is normal sinus rhythm with no ectopy or ischemic changes, 60 bpm Prior EKG tracings: available for review Prior: Unchanged <Dr. Seema Lyman, DO - Last Filed: 08/31/22 21:34> [facility] Narrative Medical decision making narrative: History gathered from: Nurse at [facility], family Patient had a witnessed fall at her SNF with closed head injury. No LOC or blood thinners. She has lacerations of her right frontal scalp and nose. No signs of basilar skull fracture. She is awake and alert to self which is her baseline. GCS 15. She also has a right anterior shoulder contusion with tenderness. Slightly limited range of motion. Distal pulses intact. No other injuries noted on exam. CT scans of her head, neck, and face show a nasal fracture with blood in the nasal cavity. X-rays of chest, right shoulder and pelvis all negative for traumatic findings. I anesthetized the 2.5 cm right scalp laceration with 3 cc of 1% lidocaine. I thoroughly cleansed both the forehead and nasal lacerations with sterile saline. The forehead laceration was prepped and draped in sterile condition and closed with 4 simple erupted sutures of 5-0 Ethilon. Since there is a nasal fracture and that laceration is already approximated I do not want to close it due to risk of infection. Tetanus was updated and she was given Keflex for the open nasal fracture with a prescription for home. Since originally I do not know the fall was witnessed and mechanical until I spoke with her nurse at [facility], labs were obtained. She has a leukocytosis of 13.7. Normal hemoglobin. Unremarkable electrolytes and renal function. UA is negative. Patient has no signs and symptoms of infection so this leukocytosis is really nonspecific. She will be discharged back to SNF in stable condition. Differential: Facial lacerations, intracranial bleed, skull fracture I have personally performed a face to face assessment of the patient and have reviewed the ADEEL Note. I performed a substantive portion of the visit including all aspects of the following. My dias findings include: History is patient is an 86-year-old female present for memory care after witnessed fall. Patient has been having frequent falls so metabolic as well as trauma work-up is initiated. Patient has significant head trauma from exam and CT of the head, C-spine and face is obtained. Patient is found to have nasal fracture with bleeding into the sinuses. She has an abrasion over her neck and full-thickness forehead/frontal scalp laceration. Suture repair performed by PA. Patient will be treated with a course of Keflex for a possible open nasal fracture she does have bleeding into the sinuses. Patient is found to have a leukocytosis of 13.7 which is nonspecific and no other signs of infection or electrolyte abnormality. Patient be discharged back to nursing facility. Patient and family agreeable with plan of care. Other additions or changes: [None] Lab Data Labs: Laboratory Results - last 24 hr 08/28/22 08/28/22 08/28/22 14:15 14:15 14:58 WBC 13.7 H RBC 4.10 L Hgb 12.3 Hct 38.0 MCV 92.7 MCH 30.0 MCHC 32.4 RDW Std Deviation 50.8 H RDW Coeff of Jitendra 14.8 H Plt Count 264 MPV 10.2 Immature Gran % (Auto) 0.900 Neut % (Auto) 81.6 H Lymph % (Auto) 9.6 L Kendall % (Auto) 5.6 Eos % (Auto) 1.9 Baso % (Auto) 0.4 Absolute Neuts (auto) 11.2 H Absolute Lymphs (auto) 1.32 Nucleated RBC % 0 Sodium 137 Potassium 4.2 Chloride 104 Carbon Dioxide 23.0 Anion Gap 10 BUN 26 H Creatinine 0.89 Estim Creat Clear Calc 42.34 Est GFR (MDRD) Af Amer 78 Est GFR (MDRD) Non-Af 64 BUN/Creatinine Ratio 29.2 H Glucose 108 H Calcium 9.4 Urine Color Yellow Urine Clarity Clear Urine pH 6.0 Ur Specific [place] 1.015 Urine Protein Negative Urine Glucose (UA) Normal Urine Ketones Negative Urine Occult Blood Negative Urine Nitrite Negative Urine Bilirubin Negative Urine Urobilinogen Normal Ur Leukocyte Esterase Negative Urine RBC 0 SEEN Urine WBC 0-5 SEEN Ur Squamous Epith Cells 0-5 SEEN Urine Bacteria 0 SEEN Urine Mucus 0 SEEN Radiography Diagnostic Testing: Clinical Impression(s) from Imaging Studies Brain CT 08/28/22 12:22 IMPRESSION: Chronic involutional changes of the brain. Findings in keeping with a nasal fracture and possible blood within the nasal cavities. Small air-fluid level in the right maxillary sinus. Electronically Signed: Tim Ortega MD at 13:10 EDT , Cervical Spine CT 08/28/22 12:22 IMPRESSION: Multilevel degenerative changes, as described above. Stable examination. Electronically Signed: Tim Ortega MD at 13:36 EDT , Facial/Sinus 08/28/22 12:22 IMPRESSION: Fracture of the nasal bones. Fullness of the nasal cavity suggests blood. Electronically Signed: Tim Ortega MD at 13:12 EDT , Chest X-Ray 08/28/22 13:00 IMPRESSION: Mild cardiomegaly. The lungs are clear. Electronically Signed: Tim Ortega MD at 13:27 EDT , Pelvis X-Ray 08/28/22 13:00 IMPRESSION: Degenerative changes. No fracture or dislocation is seen. Electronically Signed: Tim Ortega MD at 13:29 EDT , Shoulder X-Ray 08/28/22 13:00 IMPRESSION: Osteoarthritis of the glenohumeral joint. Prior rotator cuff surgery. No acute fracture is seen. Electronically Signed: Tim Ortega MD at 13:28 EDT , Discharge Plan Triage Chief Complaint: Fall ED Midlevel Provider: Shauna Hill ED Provider: Seema Lyman Dx/Rx/DC Orders Clinical Impression: Head injury, Face lacerations, Open fracture nasal bone, Contusion of right shoulder Instructions: ED Head Injury (Adult), ED FACIAL LACERATION Suture Tape Prescriptions: New cephalexin 500 mg capsule 500 mg PO Q12 Qty: 14 0RF No Action aspirin 81 MG tablet,chewable 81 mg PO DAILY@0800 lisinopril 40 MG tablet 40 mg PO DAILY fluticasone propionate 1 SPRAY spray,suspension 1 spray NASAL QHS PRN (Reason: Congestion) multivitamin with folic acid [Thera] 1 TABLET tablet 1 tab PO DAILY doxepin 25 MG capsule 1 tab PO QHS acetaminophen 325 MG tablet 650 mg PO Q4H PRN PRN (Reason: Pain Score 1-10/10) 0RF meclizine 12.5 MG tablet 12.5 mg PO 4X/DAY PRN PRN (Reason: Vertigo) Qty: 10 0RF atorvastatin 80 mg Tablet 80 mg PO QHS metoprolol succinate 100 mg Tablet Extended Release 24 Hr 100 mg PO DAILY sertraline 100 mg Tablet 100 mg PO DAILY buspirone 15 mg Tablet 15 mg PO BID donepezil 5 mg Tablet 5 mg PO QHS PreserVision AREDS [id number] Capsule 1 cap PO BID cholecalciferol (vitamin D3) 1,250 mcg (50,000 unit) Tablet 1,250 mcg PO QWEEK Primary Care Provider: Flavio Soriano Referrals: Flavio Soriano MD [Primary Care Provider] - Activity Restrictions/Additional Instructions: She has a nasal bone fracture and with the open wound on her nose she was given antibiotics to prevent infection. Follow-up with the ENT doctor if she has any complications or concerns. The stitches in her forehead need removed in 5 days. Disposition Disposition: Home, Self Care Discharge Date/Time: 08/28/22 17:22
--- NOTE | 2022-08-28 12:38 | EKG12_ITS ---
Test Reason : FALL Blood Pressure : / mmHG Vent. Rate : 060 BPM Atrial Rate : 060 BPM P-R Int : 164 ms QRS Dur : 078 ms QT Int : 428 ms P-R-T Axes : 018 018 064 degrees QTc Int : 428 ms Normal sinus rhythm Possible Inferior infarct , age undetermined Abnormal ECG Confirmed by HEATHER FRAIRE, DAYANA ([id number]), avid editor COURTNEY BLANKENSHIP ([id number]) on 08/31/2022 2:15:43 PM Referred By: Confirmed By:DAYANA ROMERO MD
--- NOTE | 2022-08-28 13:00 | RAD_ITS ---
STUDY: X-RAY - RIGHT SHOULDER REASON FOR EXAM: Female, 86 years old. Right shoulder pain TECHNIQUE: 2 view(s) of the shoulder. COMPARISON: Comparison is made with prior study dated August 05, 2022. FINDINGS: There is severe degenerative arthrosis of the glenohumeral articulation. Normal acromioclavicular joint. Normal acromion. Prior rotator cuff surgery. Decreased distance between the humeral head and acromion suggestive of rotator cuff pathology. The soft tissue structures are unremarkable. Normal visualized pulmonary apex. RAD/Shoulder min 2 Views IMPRESSION: Osteoarthritis of the glenohumeral joint. Prior rotator cuff surgery. No acute fracture is seen. Electronically Signed: Tim Ortega MD at 13:28 EDT ,
--- NOTE | 2022-08-28 13:00 | RAD_ITS ---
STUDY: X-RAY - PELVIS REASON FOR EXAM: Female, 86 years old. Fall TECHNIQUE: One view of the pelvis was obtained. COMPARISON: None. FINDINGS: There is a non-specific bowel gas pattern. There are multiple calcified phleboliths. Disc space narrowing in the lower lumbar spine. There is narrowing with cortical sclerosis and osteophyte formation of the sacroiliac joint consistent with degenerative osteoarthritic changes. Normal visualized bilateral superior and inferior pubic rami. There is narrowing with sclerosis of the pubic symphysis. Normal ischial tuberosities. Normal visualized right femoral head. Normal right acetabulum. There is moderate articular joint space narrowing of the right hip. Normal visualized left femoral head. Normal left acetabulum. There is moderate articular joint space narrowing of the left hip. RAD/Pelvis 1 or 2 Views IMPRESSION: Degenerative changes. No fracture or dislocation is seen. Electronically Signed: Tim Ortega MD at 13:29 EDT ,
--- NOTE | 2022-08-28 13:00 | RAD_ITS ---
STUDY: X-RAY CHEST REASON FOR EXAM: Female, 86 years old. Fall TECHNIQUE: Single AP portable view of the chest. COMPARISON: Comparison is made with prior study dated July 26, 2019. FINDINGS: The lungs are clear and expanded. There is no demonstrated pleural abnormality. There is mild cardiac enlargement. Normal mediastinum and ani. Normal visualized pulmonary arteries. There is atherosclerotic calcification of the aortic arch with tortuosity. There are diffuse degenerative changes of the visualized thoracic spine. There is degenerative osteoarthritis of the bilateral shoulders. Prior surgery in the right shoulder joint. There is no demonstrated abnormality of the visualized soft tissue structures of the upper abdomen. RAD/Chest 1 View (Portable) IMPRESSION: Mild cardiomegaly. The lungs are clear. Electronically Signed: Tim Ortega MD at 13:27 EDT ,
[2022-08-28] MEDS: Lidocaine 1% (20 ml mdv) 20 ML Vial INFILT (14:15)
[2022-08-28] MEDS: Acetaminophen 500 MG Tablet 1000 MG PO (14:16)
[2022-08-28] MEDS: Cephalexin 250 MG Capsule 500 MG PO (14:18)
[2022-08-28] MEDS: Diphth,Pertuss(Acell),Tet Vac 0.5 ML Vial IM (14:19)
[2022-08-28 14:22] LABS: Absolute Lymphocyte Count 1.32 X10^3/uL (0.83-4.51); Absolute Neutrophil Count 11.2 X10^3/uL (2.0-7.7); Basophil# 0.05 X10^3/uL; Basophil% 0.4 % (0-1); Eosinophil# 0.26 X10^3/uL; Eosinophils% 1.9 % (0-5); Hemoglobin 12.3 g/dL (12.0-15.0); Lymphocyte # 1.32 X10^3/ul (0.83-4.51); Lymphocyte % 9.6 % (19-41); Mean Corp Hgb Conc 32.4 g/dL (32-36); Mean Corpuscular Volume 92.7 fL (81-99); Mean Platelet Vol. 10.2 fl (6.2-12.0); Monocyte# 0.76 X10^3/uL; Monocyte% 5.6 % (0-10); NRBC Flagged by Analyzer 0 % (0-5); Neutrophil # 11.18 X10^3/uL (2.7-7.7); Neutrophil % 81.6 % (47-70); Platelet Count 264 K/mm3 (150-450); RBC Distribution Width CV 14.8 % (11.6-14.6); RBC Distribution Width SD 50.8 fl (35.1-43.9); White Blood Count 13.7 K/mm3 (4.4-11.0)
[2022-08-28 14:38] LABS: Anion Gap 10 (5-15); BUN 26 mg/dL (7-18); BUN/Creat Ratio 29.2 RATIO (10-20); Calcium,Total 9.4 mg/dL (8.5-10.1); Chloride 104 mmol/L (98-107); Creatinine, Serum 0.89 mg/dL (0.55-1.02); EST Glomerular Filtration Rate 64 mL/min (>60); Est Glom Filt Rate - Afr Amer 78 mL/min (>60); Estimated Creatinine Clearance 42.34 ml/min; Glucose 108 mg/dL (74-106); Potassium 4.2 mmol/L (3.5-5.1); Sodium Level 137 mmol/L (136-145)
[2022-08-28 15:07] LABS: Bacteria 0 SEEN /hpf (None Seen); Mucous, Urine 0 SEEN /hpf (<or=2+); Red Blood Cells-Urine 0 SEEN /hpf (0-5)
[2022-08-28 15:10] LABS: Color, Urine Yellow (Yellow); Glucose, Dipstick Normal (Normal); Ketone-Dipstick Negative (Negative); Leukocyte Esterase-Dipstick Negative /ul (Negative); Nitrite-Dipstick Negative (Negative); Occult Blood-Urine Negative /ul (Negative); Protein-Dipstick Negative (Negative); Specific Gravity, Urine 1.015 (1.002-1.030); Urine Bilirubin Dipstick Negative (Negative); Urine Clarity Clear (Clear); Urine Urobilinogen Normal (Normal)
[2022-08-28 15:17] LABS: Squamous Epithelial Cells - UA 0-5 SEEN /hpf (5-10); White Blood Cells 0-5 SEEN /hpf (0-5)
--- NOTE | 2022-08-28 16:54 | ED.RN ---
THIS RN ATTEMPTED TO CALL [facility] TO LET THEM KNOW PT IS COMING BACK VIA [facility]. THIS CALL ATTEMPT TOOK PLACE AT [id number].
--- NOTE | 2022-08-28 17:00 | ED.RN ---
THIS RN ATTEMPTED TO CALL [facility]. REPORT TAKEN BY GAGE DE LEON. UPDATED ON PATIENT STATUS AND NEW PRESCRIPTION.
== END 2022-08-28 17:22 | disposition home or self-care (01) ==
PROVIDERS: Physician Assistant; Emergency Provider Emergency Medicine; PCP Family Medicine; Visit Provider Emergency Medicine
DX: S01.111A Laceration without foreign body of right eyelid and periocular area, initial encounter (principal); F03.90 Unspecified dementia, unspecified severity, without behavioral disturbance, psychotic disturbance, mood disturbance, and anxiety; I10 Essential (primary) hypertension; Z87.891 Personal history of nicotine dependence; S40.011A Contusion of right shoulder, initial encounter; W19.XXXA Unspecified fall, initial encounter
CPT/HCPCS: 12011; 70450; 70486; 71045; 72125; 72170; 73030; 80048; 81001; 85025; 90471; 90715; 93005; 99285; A4216

== ENCOUNTER 2022-08-29 16:38 | Emergency (ER) | payer MEDICARE, BC, SELFPAY ==
[2022-08-29 16:39] VITALS: BP 139/74; PULSE 70; RESP 19; TEMP 36.8; O2SAT 98; BMI 32.3
[2022-08-29 16:51] VITALS: O2SAT 99
[2022-08-29 16:52] VITALS: O2SAT 99
--- NOTE | 2022-08-29 17:27 | CT_ITS ---
STUDY: CT BRAIN WITHOUT CONTRAST REASON FOR EXAM: Female, 86 years old. head trauma,FALL RADIATION DOSAGE (If Supplied By Facility): CTDIvol = ( 47.06 ) mGy, DLP = ( 907.97 ) mGycm TECHNIQUE: Transaxial CT imaging of the brain was performed without administration of intravenous contrast material. Individualized dose optimization techniques were used for this CT. COMPARISON: August 28, 2022 FINDINGS: Right forehead hematoma. Normal calvarium. There is moderate cerebral atrophy with widening of the extra-axial spaces and ventricular dilatation. There are areas of decreased attenuation within the white matter tracts of the supratentorial brain, consistent with microvascular disease changes. Normal basal ganglia and thalami. Normal brainstem. Normal cerebellum. Intracranial atherosclerosis. There is no intracranial hemorrhage. There are no findings of an acute ischemic infarction. Normal visualized paranasal sinuses. CT/Brain/Head without Contrast IMPRESSION: Chronic involutional changes of the brain. Hematoma right forehead. Electronically Signed: Brian Hong MD at 18:52 EDT ,
--- NOTE | 2022-08-29 17:27 | CT_ITS ---
STUDY: CT FACIAL BONES WITHOUT CONTRAST REASON FOR EXAM: Female, 86 years old. facial trauma RADIATION DOSAGE (If Supplied By Facility): CTDIvol = ( 25.01 ) mGy, DLP = ( 517.39 ) mGycm TECHNIQUE: The patient was scanned in a multi detector CT scanner. Sagittal and coronal images were reconstructed. Individualized dose optimization techniques were used for this CT. COMPARISON: None. FINDINGS: Hematoma right forehead. Normal orbital cazares and orbital contents. Displaced comminuted fractures of the nasal bones with deviation to the left. There also appears to be a fracture of the anterior bony septum which is deviated to the right anteriorly. The anterior maxillary spine appears intact structures no significant septal hematoma. Normal facial bones. There is no demonstrated fracture. Normal visualized paranasal sinuses. CT/Sinus/Facial Bone IMPRESSION: Displaced comminuted nasal bone fractures as above. Hematoma right forehead. Electronically Signed: Brian Hong MD at 19:05 EDT ,
--- NOTE | 2022-08-29 17:27 | CT_ITS ---
STUDY: CT CERVICAL SPINE WITHOUT CONTRAST REASON FOR EXAM: Female, 86 years old. falls RADIATION DOSAGE (If Supplied By Facility): CTDIvol = ( 16.52 ) mGy, DLP = ( 338.87 ) mGycm TECHNIQUE: High resolution transaxial imaging was performed without contrast material. Sagittal and coronal images were reconstructed. Individualized dose optimization techniques were used for this CT. COMPARISON: Cervical spine August 25, 2022. FINDINGS: Normal craniovertebral junction. Normal anterior atlantoaxial articulation. Normal odontoid process. Normal cervical lordosis. Normal vertebral bodies and posterior osseous elements. C2-3: Normal endplates. Normal disc height and morphology. Normal central canal and intervertebral neuroforamina. C3-4: Normal endplates. Normal disc height and morphology. Normal central canal and intervertebral neuroforamina. C4-5: Spondylitic endplates. Decreased disc height and morphology. Normal central canal and narrowed intervertebral neuroforamina. C5-6: Spondylitic endplates. Decreased disc height and morphology. Normal central canal and narrowed intervertebral neuroforamina. C6-7: Normal endplates. Decreased disc height and morphology. Normal central canal and intervertebral neuroforamina. C7-T1: Normal endplates. Normal disc height and morphology. Normal central canal and intervertebral neuroforamina. Slight anterior subluxation. Normal visualized soft tissue structures. Calcified plaque in the carotids bilaterally. CT/Spine Cervical without Contras IMPRESSION: No fracture Electronically Signed: Brian Hong MD at 19:11 EDT ,
--- NOTE | 2022-08-29 17:59 | ED.VIS.FALL ---
HPI HPI - Fall History of Present Illness Chief Complaint: Fall Narrative Narrative: 86-year-old female with history of dementia presenting after a fall. Patient was found on the ground by nursing staff at [facility]. Patient had a fall yesterday and had imaging done of her brain, facial bones, CT C-spine. She had nasal bone fractures. She also has lacerations to the face. Blood work was obtained and was fairly normal. Patient was discharged back to the care home. Her family states that she has a shuffling gait and that is why she trips a lot. No fevers or chills that they know of. Patient reports that she fell on the right side of her head and hit this on the ground. She reports a rug burn on the side of the head as well. She denies neck pain. She does have facial pain and a but she also fell and hit her face and head yesterday. She does not have nausea or vomiting. No visual changes PFSH PFSH Medical History HTN (hypertension) Home Medications aspirin 81 mg chewable tablet 81 mg PO DAILY@0800 heart 04/07/13 [History Last Taken Unknown] fluticasone propionate 50 mcg/actuation nasal spray,suspension 1 spray QHS PRN Congestion 04/07/13 [History Last Taken Unknown] lisinopril 40 mg tablet 40 mg PO DAILY blood pressure 04/07/13 [History Last Taken Unknown] multivitamin with folic acid 400 mcg tablet (Thera) 1 tab PO DAILY supplement 04/07/13 [History Last Taken Unknown] doxepin 25 mg capsule 1 tab PO QHS depression 06/28/19 [History Last Taken Unknown] acetaminophen 325 mg tablet 650 mg PO Q4H PRN PRN Pain Score 1-03/1606/30/19 [Rx Last Taken Unknown] meclizine 12.5 mg tablet 12.5 mg PO 4X/DAY PRN PRN Vertigo #10 tabs 07/27/19 [Rx Last Taken Unknown] atorvastatin 80 mg tablet 80 mg PO QHS 01/14/22 [History Last Taken Unknown] buspirone 15 mg tablet 15 mg PO BID 01/14/22 [History Last Taken Unknown] cholecalciferol (vitamin D3) 1,250 mcg (50,000 unit) tablet 1,250 mcg PO QWEEK 01/14/22 [History Last Taken Unknown] donepezil 5 mg tablet 5 mg PO QHS 01/14/22 [History Last Taken Unknown] metoprolol succinate 100 mg tablet,extended release 24 hr 100 mg PO DAILY 01/14/22 [History Last Taken Unknown] sertraline 100 mg tablet 100 mg PO DAILY 01/14/22 [History Last Taken Unknown] vitamins A,C,P-kgfa-ykukal 4,296 mcg-226 mg-90 mg capsule (PreserVision AREDS) 1 cap PO BID 01/14/22 [History Last Taken Unknown] cephalexin 500 mg capsule 500 mg PO Q12 #14 CAPSULES 08/28/22 [Rx Last Taken Unknown] Allergy/AdvReac Type Severity Reaction Status Date / Time hydrochlorothiazide Allergy Unknown Verified 08/05/22 17:02 memantine [From Namenda] Allergy PT UNSURE Verified 08/28/22 12:30 OF REACTION nitrofurantoin Allergy Unknown Verified 08/05/22 17:02 [Nitrofurantoin] NSAIDS (Non-Steroidal Allergy Unknown Verified 08/05/22 17:02 Anti-Inflamma oxaprozin [From Daypro] Allergy Unknown Verified 08/05/22 17:02 rofecoxib [From Vioxx] Allergy Unknown Verified 08/05/22 17:02 Sulfa (Sulfonamide Allergy Hives Verified 08/05/22 17:02 Antibiotics) Social History Smoking Status: Former smoker ROS ROS ED Constitutional Constitutional ED: Denies chills or fever(s) Eyes Eyes: Denies change in vision or diplopia ENT ENT ED: Denies rhinorrhea or sore throat Cardiovascular Cardiovascular: Denies chest pain or palpitations Respiratory/Chest Respiratory/Chest: Denies cough or dyspnea Gastrointestinal Gastrointestinal: Denies abdominal pain or constipation Genitourinary Genitourinary ED: Denies dysuria or hematuria Musculoskeletal Musculoskeletal: Denies arthralgias or back pain Integumentary Reports other EXAM Physical Exam Const Vital Signs: 08/29/22 16:39 08/29/22 16:51 08/29/22 16:52 Temperature 98.2 F Temperature Source Temporal Pulse Rate 70 Respiratory Rate 19 H Respiratory Effort Normal Respiratory Depth Normal Respiratory Pattern Normal Blood Pressure 139/74 H Blood Pressure Mean 95 Pulse Ox 98 99 99 Oxygen Delivery Method Room Air Room Air Room Air 08/29/22 18:49 Temperature Temperature Source Pulse Rate 78 Respiratory Rate Respiratory Effort Respiratory Depth Respiratory Pattern Blood Pressure 131/68 H Blood Pressure Mean 89 Pulse Ox Oxygen Delivery Method MDM MDM MDM Narrative Medical decision making narrative: Patient presenting after mechanical fall again today. She obviously has swelling and bruising to the head as she fell yesterday and hit her face. She is awake and alert. No focal neurologic deficits. Her laceration is still intact. No epistaxis but she does have a nasal bone fracture from yesterday. Nares are patent. CT brain, cervical spine, facial bones were ordered. CT brain and cervical spine are normal. CT of the facial bones shows a displaced comminuted nasal bone fracture. At this point patient has had labs done yesterday that were fairly unremarkable. She had a urinalysis also performed. Patient will be discharged back to her facility. Impression: 1. Fall 2. Nasal bone fracture 3. Cephalohematoma Radiography Diagnostic Testing: Clinical Impression(s) from Imaging Studies Brain CT 08/29/22 17:27 IMPRESSION: Chronic involutional changes of the brain. Hematoma right forehead. Electronically Signed: Brian Hong MD at 18:52 EDT , Cervical Spine CT 08/29/22 17:27 IMPRESSION: No fracture Electronically Signed: Brian Hong MD at 19:11 EDT , Facial/Sinus 08/29/22 17:27 IMPRESSION: Displaced comminuted nasal bone fractures as above. Hematoma right forehead. Electronically Signed: Brian Hong MD at 19:05 EDT , Discharge Plan Triage Chief Complaint: Fall ED Provider: Socrates Pereyra Dx/Rx/DC Orders Instructions: ED Mechanical Fall, ED Nose Fracture, with X-Ray, ED Hematoma Prescriptions: No Action aspirin 81 MG tablet,chewable 81 mg PO DAILY@0800 lisinopril 40 MG tablet 40 mg PO DAILY fluticasone propionate 1 SPRAY spray,suspension 1 spray NASAL QHS PRN (Reason: Congestion) multivitamin with folic acid [Thera] 1 TABLET tablet 1 tab PO DAILY doxepin 25 MG capsule 1 tab PO QHS acetaminophen 325 MG tablet 650 mg PO Q4H PRN PRN (Reason: Pain Score 1-10/10) 0RF meclizine 12.5 MG tablet 12.5 mg PO 4X/DAY PRN PRN (Reason: Vertigo) Qty: 10 0RF atorvastatin 80 mg Tablet 80 mg PO QHS metoprolol succinate 100 mg Tablet Extended Release 24 Hr 100 mg PO DAILY sertraline 100 mg Tablet 100 mg PO DAILY buspirone 15 mg Tablet 15 mg PO BID donepezil 5 mg Tablet 5 mg PO QHS PreserVision AREDS 14,320-226-200 [id number] Capsule 1 cap PO BID cholecalciferol (vitamin D3) 1,250 mcg (50,000 unit) Tablet 1,250 mcg PO QWEEK cephalexin 500 mg capsule 500 mg PO Q12 Qty: 14 0RF Primary Care Provider: Flavio Soriano Referrals: Flavio Soriano MD [Primary Care Provider] - Disposition Disposition: Home, Self Care
[2022-08-29 18:49] VITALS: BP 131/68; PULSE 78
[2022-08-29] MEDS: Acetaminophen 500 MG Tablet 1000 MG PO (18:52)
== END 2022-08-29 20:12 | disposition home or self-care (01) ==
PROVIDERS: Emergency Provider Student in an Organized Health Care Education/Training Program; PCP Family Medicine; Visit Provider Student in an Organized Health Care Education/Training Program
DX: S02.2XXA Fracture of nasal bones, initial encounter for closed fracture (principal); F03.90 Unspecified dementia, unspecified severity, without behavioral disturbance, psychotic disturbance, mood disturbance, and anxiety; S01.81XA Laceration without foreign body of other part of head, initial encounter; I10 Essential (primary) hypertension; Z87.891 Personal history of nicotine dependence; W19.XXXA Unspecified fall, initial encounter; Y92.129 Unspecified place in nursing home as the place of occurrence of the external cause
CPT/HCPCS: 70450; 70486; 72125; 99284

== ENCOUNTER → 2022-09-23 | Outpatient (REF) | payer MEDICARE, BC, SELFPAY ==
[2022-09-23 07:35] LABS: Hematocrit 31.2 % (37-47); Hemoglobin 9.9 g/dL (12.0-15.0); Mean Corp Hgb Conc 31.7 g/dL (32-36); Mean Corpuscular Hgb 30.3 pg (27.0-32.0); Mean Corpuscular Volume 95.4 fL (81-99); Mean Platelet Vol. 10.5 fl (6.2-12.0); Platelet Count 278 K/mm3 (150-450); RBC Distribution Width SD 52.5 fl (35.1-43.9); Red Blood Count 3.27 M/mm3 (4.2-5.4); White Blood Count 10.1 K/mm3 (4.4-11.0)
[2022-09-23 07:54] LABS: ALB/GLOB Ratio 0.8 RATIO (0.9-2.4); AST(SGOT) 22 U/L (15-37); Alanine Aminotransfer ALT/SGPT 44 U/L (13-56); Albumin, Serum 2.7 g/dL (3.2-5.0); Alkaline Phosphatase 90 U/L (45-117); Anion Gap 5 (5-15); BUN 23 mg/dL (7-18); BUN/Creat Ratio 24.6 RATIO (10-20); Calcium,Total 8.5 mg/dL (8.5-10.1); Chloride 112 mmol/L (98-107); Cholesterol 164 mg/dL (200); Creatinine, Serum 0.93 mg/dL (0.55-1.02); EST Glomerular Filtration Rate 61 mL/min (>60); Est Glom Filt Rate - Afr Amer 73 mL/min (>60); Globulin 3.4 g/dL (2.2-4.2); Glucose 83 mg/dL (74-106); High Density Lipoprotein 45 mg/dL; Potassium 4.2 mmol/L (3.5-5.1); Protein, Total 6.1 g/dL (6.4-8.2); Sodium Level 139 mmol/L (136-145); Triglycerides 310 mg/dL; Very Low Density Lipoprotein 62 mg/dL (5-40)
[2022-09-23 08:22] LABS: Vitamin D,25 Hydroxy 51.2 ng/mL
== END ==
LOC: OLS.BROOKB 05:00
PROVIDERS: PCP Family Medicine; Visit Provider Family Medicine
DX: I10 Essential (primary) hypertension (principal); E78.5 Hyperlipidemia, unspecified; E55.9 Vitamin D deficiency, unspecified
CPT/HCPCS: 36415; 80053; 80061; 82306; 85027

== ENCOUNTER → 2022-09-26 | Outpatient (REF) | payer MEDICARE, BC, SELFPAY | PROVIDERS: PCP Family Medicine; Visit Provider Family Medicine | DX: K62.5 Hemorrhage of anus and rectum (principal) | CPT/HCPCS: 82274 ==

== ENCOUNTER 2022-09-30 23:00 | Emergency (ER) | payer MEDICARE, BC, SELFPAY ==
[2022-09-30 23:01] VITALS: BP 126/64; PULSE 87; RESP 16; TEMP 36.6; O2SAT 98; BMI 27.7
--- NOTE | 2022-09-30 23:10 | ED.RN ---
ANTHONY POOLE STUDENT IN TO ASSESS PT. THIS RN AND VIRGILIO FIND SUTURE IN RIGHT FOREHEAD ABOVE PTS EYEBROW. THIS RN REMOVES SUTURE
--- NOTE | 2022-09-30 23:24 | RAD_ITS ---
INDICATION: fall EXAMINATION/TECHNIQUE: X-RAY - XR Pelvis 1 or 2 Views COMPARISON: None. FINDINGS: PELVIC BONES: No displaced fracture, destructive or sclerotic lesions. Note that overlapping bowel shadows may however obscure fine detail. Mild degenerative arthrosis of the Sacroiliac joints and the pubic symphysis. HIPS: The articular structures are unremarkable. No displaced fracture seen in this frontal view. SOFT TISSUES: No soft tissue swelling or gas. RAD/Pelvis 1 or 2 Views IMPRESSION: Mild degenerative arthrosis of the Sacroiliac joints and the pubic symphysis. Electronically Signed: Rajan Hastings MD at 0:11 EDT ,
--- NOTE | 2022-09-30 23:24 | RAD_ITS ---
INDICATION: fall/laceration EXAMINATION/TECHNIQUE: X-RAY - LEFT XR Hand Min 3 Views 3 VIEWS COMPARISON: FINDINGS: SOFT TISSUES: No soft tissue swelling or gas. No radiopaque foreign body. BONES/JOINTS: No acute fracture or subluxation.. Moderate to severe degenerative arthrosis in the wrist and hand more prominent in the first carpometacarpal joint. Osteoporosis. No sclerotic or destructive changes observed. 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 Osteoporosis. Electronically Signed: Rajan Hastings MD at 23:56 EDT ,
--- NOTE | 2022-09-30 23:25 | CT_ITS ---
INDICATION: fall EXAMINATION: CT BRAIN - CT Head or Brain W/O Contrast Injection TECHNIQUE: Multiple axial images were obtained of the head without intravenous contrast. A radiation dose optimization technique was used for this scan. IV Contrast dosage and agent: None. RADIATION DOSAGE (If Supplied By Facility): CTDIvol = ( 44.99 ) mGy, DLP = ( 829.85 ) mGycm COMPARISON: FINDINGS: BRAIN PARENCHYMA: No intra- or extra-axial hemorrhage. No evidence of acute infarct. No intracranial mass or mass effect. There is preservation of the cartagena/white matter interface. Posterior fossa structures are unremarkable. CSF SPACES: Moderate cerebral chronic microvascular ischemic changes. No hydrocephalus. Basal cisterns are patent. CALVARIUM, SKULL BASE, PARANASAL SINUSES AND MASTOID AIR CELLS: Moderate cerebral chronic microvascular ischemic changes. No discrete lytic or blastic abnormalities. ORBITS: Both globes, extraocular muscles, optic nerves and retrobulbar fat appear unremarkable. ASPECTS Score for Acute Strokes: 10 CT/Brain/Head without Contrast IMPRESSION: Moderate cerebral chronic microvascular ischemic changes. Displaced fracture of the right nasal bone. Electronically Signed: Rajan Hastings MD at 0:14 EDT ,
--- NOTE | 2022-09-30 23:25 | CT_ITS ---
INDICATION: fall EXAMINATION: CT CERVICAL SPINE - CT Spine Cervical W/O Contrast Injection TECHNIQUE: Helically acquired images were obtained of the cervical spine. 2D reformatted images were reviewed. A radiation dose optimization technique was used for this scan. IV Contrast dosage and agent: None. RADIATION DOSAGE (If Supplied By Facility): CTDIvol = ( ) mGy, DLP = ( ) mGycm COMPARISON: FINDINGS: Normal craniovertebral junction. Normal anterior atlantoaxial articulation. Normal odontoid process. There is straightening of the normal cervical lordosis. Normal vertebral bodies and posterior osseous elements. C2-3: Normal endplates. Normal disc height and morphology. Normal central canal and intervertebral neuroforamina. C3-4, C4-5, C5-6, C6-7: Endplate spondylosis. Central and paracentral disc bulge. Degenerative changes of the bilateral facet joints and uncovertebral joints. [id number] narrowing of the central canal and the bilateral intervertebral neural foramina. C7-T1: Normal endplates. Normal disc height and morphology. Normal central canal and intervertebral neuroforamina. Normal visualized soft tissue structures. CT/Spine Cervical without Contras IMPRESSION: Multilevel degenerative changes, as described above. Electronically Signed: Rajan Hastings MD at 0:18 EDT ,
--- NOTE | 2022-10-01 01:43 | EX.ED.DYSGE1 ---
HPI History of Present Illness Chief Complaint: Fall Narrative Narrative: Patient is an 86-year-old female with history of dementia from the assisted. She has been seen in the ER secondary to recurrent falls. She was seen in the ER roughly 1 month ago secondary to a fall which led to nasal fracture. And a facial/head laceration that needed closed. Nursing reports that the patient had another fall today and they noticed bleeding and bruising to her left hand and were concerned that this was fractured or that she would require stitches and therefore she was sent to the hospital for evaluation. Please note that this history is taken from EMS and assisted as the patient's severe dementia does not allow her to provide any history. [facility] Medical History HTN (hypertension) Home Medications aspirin 81 mg chewable tablet 81 mg PO DAILY@0800 heart 04/07/13 [History Last Taken Unknown] fluticasone propionate 50 mcg/actuation nasal spray,suspension 1 spray QHS PRN Congestion 04/07/13 [History Last Taken Unknown] lisinopril 40 mg tablet 40 mg PO DAILY blood pressure 04/07/13 [History Last Taken Unknown] multivitamin with folic acid 400 mcg tablet (Thera) 1 tab PO DAILY supplement 04/07/13 [History Last Taken Unknown] doxepin 25 mg capsule 1 tab PO QHS depression 06/28/19 [History Last Taken Unknown] acetaminophen 325 mg tablet 650 mg PO Q4H PRN PRN Pain Score 1-/10 06/30/19 [Rx Last Taken Unknown] meclizine 12.5 mg tablet 12.5 mg PO 4X/DAY PRN PRN Vertigo #10 tabs 07/27/19 [Rx Last Taken Unknown] atorvastatin 80 mg tablet 80 mg PO QHS 01/14/22 [History Last Taken Unknown] buspirone 15 mg tablet 15 mg PO BID 01/14/22 [History Last Taken Unknown] cholecalciferol (vitamin D3) 1,250 mcg (50,000 unit) tablet 1,250 mcg PO QWEEK 01/14/22 [History Last Taken Unknown] donepezil 5 mg tablet 5 mg PO QHS 01/14/22 [History Last Taken Unknown] metoprolol succinate 100 mg tablet,extended release 24 hr 100 mg PO DAILY 01/14/22 [History Last Taken Unknown] sertraline 100 mg tablet 100 mg PO DAILY 01/14/22 [History Last Taken Unknown] vitamins A,C,X-zbhm-stvcwq 4,296 mcg-226 mg-90 mg capsule (PreserVision AREDS) 1 cap PO BID 01/14/22 [History Last Taken Unknown] cephalexin 500 mg capsule 500 mg PO Q12 #14 CAPSULES 08/28/22 [Rx Last Taken Unknown] Allergy/AdvReac Type Severity Reaction Status Date / Time hydrochlorothiazide Allergy Unknown Verified 09/30/22 23:01 memantine [From Namenda] Allergy PT UNSURE Verified 09/30/22 23:01 OF REACTION nitrofurantoin Allergy Unknown Verified 09/30/22 23:01 [Nitrofurantoin] NSAIDS (Non-Steroidal Allergy Unknown Verified 09/30/22 23:01 Anti-Inflamma oxaprozin [From Daypro] Allergy Unknown Verified 09/30/22 23:01 rofecoxib [From Vioxx] Allergy Unknown Verified 09/30/22 23:01 Sulfa (Sulfonamide Allergy Hives Verified 09/30/22 23:01 Antibiotics) Social History Smoking Status: Former smoker ROS ROS ED ROS Narrative Unable to obtain review of systems based on patient's history of dementia Review of Systems ROS Unobtainable: due to mental status EXAM Physical Exam Const Vital Signs: 09/30/22 23:01 Temperature 97.9 F Temperature Source Temporal Pulse Rate 87 Respiratory Rate 16 Blood Pressure 126/64 H Blood Pressure Mean 84 Pulse Ox 98 Oxygen Delivery Method Room Air Positive well nourished and well developed General Appearance ED: well developed HEENT HEENT Narrative: Normocephalic atraumatic No signs of depressed or basilar skull fracture No septal hematoma Eyes PERRL and EOMs intact bilaterally Eyes Narrative: No hyphema Neck supple Neck Narrative: No bony deformity or step-off of the cervical spine no midline pain with palpation Patient is able to move her neck in all directions without pain Chest Wall palpation of chest normal Chest Narrative: No bony deformity or crepitance noted Resp normal respiratory effort and clear to auscultation bilaterally Cardio regular rate and regular rhythm GI normal to inspection, nondistended, normoactive bowel sounds, non-tender, non-distended and no masses GI Narrative: No overlying abrasions or ecchymosis to the abdominal wall no pain with palpation no voluntary guarding or rigidity or pulsatile mass Auscultation: normoactive bowel sounds Palpation: soft Back/Spine Back/Spine Narrative: No bony deformity or step-off of the thoracic or lumbar spine no midline pain with palpation Extremity Extremity Narrative: Pelvis is stable there is no shortening or external rotation of either lower extremity Patient has superficial abrasions to the anterior aspect of bilateral knees consistent with fall and there is faint ecchymosis present without joint effusion or bony deformity. Patellar tendon is intact bilaterally and knee ligaments are stable Left upper extremity is neurovascularly intact. Patient has soft tissue swelling to the proximal phalanx of the third digit. Along the dorsal aspect near the PIP joint is a 1.5 cm linear subcutaneous layer deep laceration with minimal ooze of blood. There is no foreign body or tendon involvement. Remainder the exam is normal Neuro CN's II-XII intact bilaterally Neuro Narrative: Patient is awake and alert and at her baseline mental status which is A&O x1. No focal neurologic deficit noted. Sensorium / Orientation: alert Skin Skin Narrative: Ecchymosis laceration to the left hand/finger as documented above MDM MDM MDM Narrative Medical decision making narrative: Patient presented to the ER at her baseline mental status. She has history of recurrent falls and had fallen once again. She has stable vitals and based on this history I do not feel there is need for cardiac or syncope work-up. Differential diagnosis includes skull fracture or brain bleed as well as fractured hand or tendon injury. A CT of the head was obtained which revealed no acute traumatic findings. With the trauma to the hand and abrasions to the knees patient did have x-rays obtained of the pelvis and left hand. Pelvis x-ray revealed no acute traumatic finding and as well as the left hand x-ray. Therefore the hand was sutured as documented below. The patient does not have arterial injury by exam she does not have tendon laceration by exam either and therefore there is no need for further evaluation in the ER/hospital and she can be discharged back to the assisted Patient had the left hand cleaned with chlorhexidine and then it was injected with 1% lidocaine without epinephrine in digital block fashion. A total of 8 mL of lidocaine was used. The wound was then copiously irrigated with normal saline. Then eight 4-0 Ethilon sutures were placed in simple neuropathy fashion bring the wound together good approximation. Patient tolerated procedure well without complication. 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 Osteoporosis. Electronically Signed: Rajan Hastings MD at 23:56 EDT , Pelvis X-Ray 09/30/22 23:24 IMPRESSION: Mild degenerative arthrosis of the Sacroiliac joints and the pubic symphysis. Electronically Signed: Rajan Hastings MD at 0:11 EDT , Brain CT 09/30/22 23:25 IMPRESSION: Moderate cerebral chronic microvascular ischemic changes. Displaced fracture of the right nasal bone. Electronically Signed: Rajan Hastings MD at 0:14 EDT , Cervical Spine CT 09/30/22 23:25 IMPRESSION: Multilevel degenerative changes, as described above. Electronically Signed: Rajan Hastings MD at 0:18 EDT , Pelvis x-ray as interpreted by the emergency medicine physician reveals no acute fracture or dislocation Left hand x-ray as interpreted by the emergency medicine physician reveals no acute fracture dislocation or foreign body. Discharge Plan Triage Chief Complaint: Fall Other Complaint: Laceration ED Provider: Paulo Pandey Dx/Rx/DC Orders Clinical Impression: Accidental fall, Finger laceration, Contusion of finger of left hand Instructions: ED Laceration, Hand: All Closures, ED Fall Prevention Prescriptions: No Action aspirin 81 MG tablet,chewable 81 mg PO DAILY@0800 lisinopril 40 MG tablet 40 mg PO DAILY fluticasone propionate 1 SPRAY spray,suspension 1 spray NASAL QHS PRN (Reason: Congestion) multivitamin with folic acid [Thera] 1 TABLET tablet 1 tab PO DAILY doxepin 25 MG capsule 1 tab PO QHS acetaminophen 325 MG tablet 650 mg PO Q4H PRN PRN (Reason: Pain Score 1-10/10) 0RF meclizine 12.5 MG tablet 12.5 mg PO 4X/DAY PRN PRN (Reason: Vertigo) Qty: 10 0RF atorvastatin 80 mg Tablet 80 mg PO QHS metoprolol succinate 100 mg Tablet Extended Release 24 Hr 100 mg PO DAILY sertraline 100 mg Tablet 100 mg PO DAILY buspirone 15 mg Tablet 15 mg PO BID donepezil 5 mg Tablet 5 mg PO QHS PreserVision AREDS 14,320-226-200 [id number] Capsule 1 cap PO BID cholecalciferol (vitamin D3) 1,250 mcg (50,000 unit) Tablet 1,250 mcg PO QWEEK cephalexin 500 mg capsule 500 mg PO Q12 Qty: 14 0RF Primary Care Provider: Flavio Soriano Referrals: Flavio Soriano MD [Primary Care Provider] - Activity Restrictions/Additional Instructions: The patient's imaging studies revealed no signs of skull fracture or brain bleed or fractured bone. She has a laceration to her left middle finger which was closed with 8 sutures. Have the patient see her family doctor or return to the ER in 7 to 10 days for suture removal Disposition Disposition: Home, Self Care Discharge Date/Time: 10/01/22 02:39
== END 2022-10-01 02:39 | disposition home or self-care (01) ==
PROVIDERS: Emergency Provider Emergency Medicine; PCP Family Medicine; Visit Provider Emergency Medicine
DX: S61.213A Laceration without foreign body of left middle finger without damage to nail, initial encounter (principal); F03.C0 Unspecified dementia, severe, without behavioral disturbance, psychotic disturbance, mood disturbance, and anxiety; I10 Essential (primary) hypertension; Z87.891 Personal history of nicotine dependence; R29.6 Repeated falls; W19.XXXA Unspecified fall, initial encounter
CPT/HCPCS: 12001; 70450; 72125; 72170; 73130; 99285

== ENCOUNTER 2022-10-08 15:16 | Inpatient (IN) | payer MEDICARE, BC, SELFPAY ==
[2022-10-08] VITALS (9 sets, daily range): BP systolic 133–166; BP diastolic 71–92; PULSE 70–77; RESP 15–18; TEMP 36.4–37.7; O2SAT 95–100; BMI 26.9; BMI 27.0
--- NOTE | 2022-10-08 16:02 | EDS_ITS ---
HPI <YEYO Rivas - Last Filed: 10/08/22 18:46> History of Present Illness Chief Complaint: Upper Extremity Injury Narrative Narrative: Patient is a 86-year-old female history of dementia, vertigo, hypertension who presents the emergency department for redness, increased pain to the left middle finger. On October 01, 2022, patient had a fall with a laceration to the palmar aspect of the left middle finger. At that time the attending put 8 simple erupt ed sutures, edges approximate nicely. Patient had full range of motion. Over the last 24 hours, the pain has been getting worse, is more red and swollen, the patient is also unable to flex the finger. Negative for any fever or chills. Patient is alert and oriented at baseline however she is here with her and was able to talk for her. [facility] <YEYO Rivas - Last Filed: 10/08/22 18:46> [facility] Medical History (Updated 10/08/22 @ 18:46 by YEYO Rivas) Bleeding hemorrhoid Dementia Depression HTN (hypertension) Home Medications aspirin 81 mg chewable tablet 81 mg PO DAILY@0800 heart 04/07/13 [History Last Taken Unknown] lisinopril 40 mg tablet 40 mg PO DAILY blood pressure 04/07/13 [History Last Taken Unknown] atorvastatin 80 mg tablet 80 mg PO QHS 01/14/22 [History Last Taken Unknown] metoprolol succinate 100 mg tablet,extended release 24 hr 100 mg PO DAILY 01/14/22 [History Last Taken Unknown] acetaminophen 500 mg capsule 1,000 mg PO BID 10/01/22 [History Last Taken Unknown] divalproex 125 mg capsule,delayed release sprinkle 125 mg PO TID 10/01/22 [History Last Taken Unknown] hydroxyzine pamoate 25 mg capsule 25 mg PO BID PRN Anxiety 10/01/22 [History Last Taken Unknown] melatonin 3 mg capsule 3 mg PO HS 10/01/22 [History Last Taken Unknown] mirtazapine 7.5 mg tablet 7.5 mg PO DAILY 10/01/22 [History Last Taken Unknown] trazodone 50 mg tablet 50 mg PO DAILY 10/01/22 [History Last Taken Unknown] Allergy/AdvReac Type Severity Reaction Status Date / Time hydrochlorothiazide Allergy Unknown Verified 10/08/22 15:21 memantine [From Namenda] Allergy PT UNSURE Verified 10/08/22 15:21 OF REACTION nitrofurantoin Allergy Unknown Verified 10/08/22 15:21 [Nitrofurantoin] NSAIDS (Non-Steroidal Allergy Unknown Verified 10/08/22 15:21 Anti-Inflamma oxaprozin [From Daypro] Allergy Unknown Verified 10/08/22 15:21 rofecoxib [From Vioxx] Allergy Unknown Verified 10/08/22 15:21 Sulfa (Sulfonamide Allergy Hives Verified 10/08/22 15:21 Antibiotics) Family History unable to obtain Social History Smoking Status: Former smoker alcohol intake: never substance use type: does not use ROS <YEYO Rivas - Last Filed: 10/08/22 18:46> ROS ED ROS Narrative Constitutional: Negative for fever, chills, weight loss, weakness Eyes: Negative for vision loss, vision change, double vision ENT: Negative for any sore throat, ear pain, congestion Cardiovascular: Negative for any chest pain, tightness, palpitations Respiratory: Negative for any cough, sputum production, hemoptysis, dyspnea, dyspnea on exertion, orthopnea Gastrointestinal: Negative for any abdominal pain, nausea, vomiting, diarrhea, constipation, blood in stool, blood in vomit : Negative for any urinary frequency, dysuria, retention, blood in urine Muscle skeletal: Negative for any muscle joint pain, stiffness, myalgias, arthralgias, neck pain, back pain. Positive for left middle finger pain, redness Neurological: Negative for any headache, syncope, numbness or tingling, dizziness Skin: Negative for any rashes, lumps, itching, abrasions, lacerations Psychiatric: Negative for any depression, anxiety, stress, suicidal ideation, homicidal ideation Hematologic: Negative for any easy bruising, excessive bruising, easy bleeding Allergies: Negative for any eczema, hives, rash EXAM <YEYO Rivas - Last Filed: 10/08/22 18:46> Physical Exam Narrative Exam Narrative: Vital signs reviewed. Patient is alert and oriented x1, this is baseline per the . HEET: Head normocephalic atraumatic, TMs clear bilaterally. Posterior pharynx is clear, moist mucous membranes. Nares clear bilaterally. Neck: Supple with no lymphadenopathy or tenderness. No signs of meningismus, negative jolt sign. Cardiac: Regular rate and rhythm no murmurs gallops or rubs, equal peripheral pulses bilaterally. Respiratory: Lungs clear to auscultation bilaterally. No chest tenderness. Abdomen: Soft, nontender, nondistended. No abdominal bruit or pulsatile masses. No hepatosplenomegaly Extremities: Patient has significant swelling to the left third finger. There is erythema to the palmar as well as the dorsal aspect of the hand. Patient does have significant pain on palpation. She is unable to flex at the PIP joint. There is some clear drainage from the palmar aspect, around the sutures. There is some skin that has sloughed off. +2 radial pulse. Neuro: Cranial nerves II through XII intact, no focal neurological deficits. Skin: Clean dry and intact with no rash, purpura, petechiae, vesicles or pustules. Backs/flank: No CVA tenderness, no midline spinal tenderness, no deformity. Psych: Normal mood and affect. No SI, HI or acute psychosis. Const Vital Signs: 10/08/22 15:19 Temperature 97.5 F L Temperature Source Temporal Pulse Rate 70 Respiratory Rate 18 Blood Pressure 166/71 H Blood Pressure Mean 102 Pulse Ox 100 Oxygen Delivery Method Room Air [facility] <YEYO Rivas - Last Filed: 10/08/22 18:46> [facility] Treatment and Re-Evaluation Narrative: Patient appears nontoxic, vital signs are stable. Patient was aggravated that I did use soap to take off the patient's wedding ring on her left ring finger. I am concerned about the patient's left middle finger. My biggest concern is significant cellulitis, extensor tenosynovitis. Patient will receive basic laboratory values including a lactic acid. I did order inflammatory markers. I will contact hand orthopedics to discuss the case. I will order an x-ray of the left hand. Patient work-up is consistent with cellulitis, I am concerned for extensor tension of Vitas. Patient's laboratory values show a normal CBC, patient's sed rate was 74 with a CRP of 30.50. I did speak with orthopedics who was come down to evaluate the patient. I also spoke with hospitalist who admit the patient. I started the patient on Unasyn as well as vancomycin. X-ray showed no acute process only some soft tissue swelling. At this time, the patient, the patient's was made aware the patient will need to be admitted. Patient remained stable. Blood cultures x2 ordered prior to administration of antibiotics. Patient stable. Differential includes superficial cellulitis, wound infection, extensor tenosynovitis, osteomyelitis. <Dr. Joe Dias MD - Last Filed: 10/08/22 17:05> [facility] MDM Narrative Medical decision making narrative: I have personally performed a face to face assessment of the patient and have reviewed the ADEEL Note. I performed a substantive portion of the visit including all aspects of the following. My dias findings include: History: Patient had laceration to the volar surface of her left middle finger on 01 October. She now presents with swelling redness drainage increased pain. No reported fever that I am getting them. Exam: Pertinent exam shows patient to be nontoxic. She is afebrile. She does have opening of that wound with some serous drainage erythema soft tissue swelling and erythema of the dorsum of the hand. She does have generalized swelling of the finger. She prefers not to bend it. There is a little tenderness in the hand proximal to it but is mostly sore at the finger. Overall this has the appearance of an infected wound with some cellulitis spreading of the hand. Flexor tenosynovitis is certainly possible. Medical Decision Making: X-rays blood work will be done. We will discuss case with orthopedics. With her age and significant swelling erythema redness I think hospitalization is appropriate. Radiography Diagnostic Testing: My independent interpretation of the patient's three-view x-ray of the left hand shows significant soft tissue swelling of the long finger but no definitive subcu air. There are a lot of arthritic changes. Final reading was similar. Management Discussion w/another healthcare provider: Hospitalist and Materials Planning Manager Discharge Plan Triage Chief Complaint: Upper Extremity Injury ED Midlevel Provider: Bryce Guerra ED Provider: Joe Dias Dx/Rx/DC Orders Clinical Impression: Cellulitis of finger of left hand, Extensor tenosynovitis of finger Primary Care Provider: Flavio Soriano Disposition Disposition: [facility]
[2022-10-08 16:20] LABS: Absolute Lymphocyte Count 1.65 X10^3/uL (0.83-4.51); Basophil# 0.05 X10^3/uL; Basophil% 0.6 % (0-1); Eosinophil# 0.22 X10^3/uL; Eosinophils% 2.5 % (0-5); Hematocrit 30.4 % (37-47); Hemoglobin 9.6 g/dL (12.0-15.0); Lymphocyte # 1.65 X10^3/ul (0.83-4.51); Lymphocyte % 18.5 % (19-41); Mean Corp Hgb Conc 31.6 g/dL (32-36); Mean Corpuscular Hgb 29.8 pg (27.0-32.0); Mean Corpuscular Volume 94.4 fL (81-99); Mean Platelet Vol. 10.1 fl (6.2-12.0); Monocyte# 0.84 X10^3/uL; Monocyte% 9.4 % (0-10); NRBC Flagged by Analyzer 0 % (0-5); Neutrophil # 6.04 X10^3/uL (2.7-7.7); Neutrophil % 67.4 % (47-70); Platelet Count 301 K/mm3 (150-450); RBC Distribution Width CV 15.3 % (11.6-14.6); RBC Distribution Width SD 53.1 fl (35.1-43.9); Red Blood Count 3.22 M/mm3 (4.2-5.4); White Blood Count 8.9 K/mm3 (4.4-11.0)
--- NOTE | 2022-10-08 16:20 | RAD_ITS ---
STUDY: X-RAY - LEFT HAND REASON FOR EXAM: Female, 86 years old. Fall 2 days ago sutures intact in the left finger. Skin is peeled back with muscle showing. TECHNIQUE: 3 view(s) of the hand. COMPARISON: Left hand, September 30, 2022. FINDINGS: Generalized osteopenia There is joint space narrowing of the radiocarpal articulation consistent with degenerative arthrosis. Normal distal radioulnar joint. There is diffuse demineralization of the carpal bones. There is degenerative joint disease of the scaphotrapezium / trapezoid articulation. The remainder of the carpal articulations are normal. There is degenerative arthrosis of the carpometacarpal (CMC) articulation of the thumb. Normal second through fifth carpometacarpal joints. There is degenerative arthrosis of the first metacarpophalangeal (MCP) joint. There is degenerative arthrosis of the interphalangeal joint of the thumb with articular joint space narrowing. Normal proximal and distal phalanges of the thumb. There is mild narrowing of the second and third metacarpophalangeal joints. The fourth and fifth joints are unremarkable. There is diffuse articular joint space narrowing of the proximal and distal interphalangeal joints of the second through fifth fingers, but without erosive changes or periarticular soft tissue swelling. There is slight dorsal medial subluxation of the third proximal interphalangeal joint. No visualized fracture. Marked soft tissue swelling about the third proximal phalangeal joint. RAD/Hand Min 3 Views IMPRESSION: 1. Worsening soft tissue swelling of the third digit. There is slight subluxation of the proximal interphalangeal joint. This is stable. 2. Osteopenia and degenerative changes of the left hand. Electronically Signed: Zay Wolf DO at 16:41 EDT ,
[2022-10-08 16:27] LABS: Erythrocyte Sedimentation Rate 74 mm/hr (0-30)
[2022-10-08 16:44] LABS: Anion Gap 9 (5-15); BUN 21 mg/dL (7-18); BUN/Creat Ratio 21.1 RATIO (10-20); Calcium,Total 8.7 mg/dL (8.5-10.1); Chloride 109 mmol/L (98-107); EST Glomerular Filtration Rate 56 mL/min (>60); Est Glom Filt Rate - Afr Amer 68 mL/min (>60); Estimated Creatinine Clearance 37.68 ml/min; Glucose 120 mg/dL (74-106); Potassium 4.1 mmol/L (3.5-5.1); Sodium Level 142 mmol/L (136-145)
[2022-10-08 16:54] LABS: Lactic Acid 1.4 mmol/L (0.4-1.9)
--- NOTE | 2022-10-08 17:31 | PCM.HP.STD ---
[facility] - General General Date of Service: 10/08/22 Chief Complaint: left ring-finger swelling. [facility] Narrative TATA SETHI, is a 86 F who presents swelling of her left ring finger. On the , patient had fallen onto her left hand and noted bleeding from that. Patient was found to have a laceration on her left ring finger that may have been induced by her fall but also her wedding ring that she was wearing at the time. Patient had 8 sutures placed in the emergency room. Patient was doing fine and then 2 days ago, developed swelling of this finger. Today she presents to the emergency room with profound swelling, inability to bend that finger erythema. Concern is for infection. In the emergency room, patient did receive ampicillin/sulbactam. Dr. Urbano, of orthopedics, has been contacted and will be in to evaluate the patient. I have also advised the emergency room to give the patient a dose of vancomycin. [facility] Medical History (Updated 10/08/22 @ 17:[address] Gabe Sotelo, DO) Bleeding hemorrhoid Dementia Depression HTN (hypertension) Home Medications aspirin 81 mg chewable tablet 81 mg PO DAILY@0800 heart 04/07/13 [History Last Taken Unknown] lisinopril 40 mg tablet 40 mg PO DAILY blood pressure 04/07/13 [History Last Taken Unknown] doxepin 25 mg capsule 1 tab PO QHS depression 06/28/19 [History Last Taken Unknown] acetaminophen 325 mg tablet 650 mg PO Q4H PRN PRN Pain Score 1-10/10 06/30/19 [Rx Last Taken Unknown] meclizine 12.5 mg tablet 12.5 mg PO 4X/DAY PRN PRN Vertigo #10 tabs 07/27/19 [Rx Last Taken Unknown] atorvastatin 80 mg tablet 80 mg PO QHS 01/14/22 [History Last Taken Unknown] metoprolol succinate 100 mg tablet,extended release 24 hr 100 mg PO DAILY 01/14/22 [History Last Taken Unknown] acetaminophen 500 mg capsule 1,000 mg PO BID 10/01/22 [History Last Taken Unknown] divalproex 125 mg capsule,delayed release sprinkle 125 mg PO TID 10/01/22 [History Last Taken Unknown] hydroxyzine pamoate 25 mg capsule 25 mg PO BID PRN 10/01/22 [History Last Taken Unknown] melatonin 3 mg capsule 3 mg PO HS 10/01/22 [History Last Taken Unknown] mirtazapine 7.5 mg tablet 7.5 mg PO DAILY 10/01/22 [History Last Taken Unknown] trazodone 50 mg tablet 50 mg PO DAILY 10/01/22 [History Last Taken Unknown] Allergy/AdvReac Type Severity Reaction Status Date / Time hydrochlorothiazide Allergy Unknown Verified 10/08/22 15:21 memantine [From Namenda] Allergy PT UNSURE Verified 10/08/22 15:21 OF REACTION nitrofurantoin Allergy Unknown Verified 10/08/22 15:21 [Nitrofurantoin] NSAIDS (Non-Steroidal Allergy Unknown Verified 10/08/22 15:21 Anti-Inflamma oxaprozin [From Daypro] Allergy Unknown Verified 10/08/22 15:21 rofecoxib [From Vioxx] Allergy Unknown Verified 10/08/22 15:21 Sulfa (Sulfonamide Allergy Hives Verified 10/08/22 15:21 Antibiotics) Family History unable to obtain unable to obtain (due to dementia) Social History Smoking Status: Former smoker alcohol intake: never substance use type: does not use Vital Signs Vital Signs Vital Signs: 10/08/22 15:19 10/08/22 17:00 Temperature 36.4 C L 36.8 C Temperature Source Temporal Temporal Pulse Rate 70 74 Respiratory Rate 18 16 Blood Pressure 166/71 H 133/78 H Blood Pressure Mean 102 96 Pulse Ox 100 96 Oxygen Delivery Method Room Air Room Air Weight Weight: 73.255 kg Body Mass Index (BMI) 26.9 Physical Exam Const alert Constitutional Narrative: Pleasantly confused General Appearance: cooperative HEENT normocephalic and head/scalp atraumatic Resp normal respiratory effort, no retractions, no use of accessory muscles and clear to auscultation bilaterally Cardio regular rate, regular rhythm, S1 normal heart sound and S2 normal heart sound GI normal to inspection, nondistended, normoactive bowel sounds, soft to palpation, non-tender and non-distended Extremity Extremity Narrative: Swelling of the left ring finger on the palmar aspect. Sutures are in place and no evidence of any dehiscence but distally, there is more prominent fluid collection and areas of purulence that cannot be actively expressed with pressure. Patient does have swelling around the circumference of the laceration. No lymphangitis. Neuro moves all extremities Neuro Narrative: Left hand is neurologically intact. Sensorium / Orientation: awake and alert Psych affect normal Results Lab / Micro Data Attestation: I reviewed the patient's lab results. Result Diagrams: 10/08/22 16:05 10/08/22 16:05 Labs: Laboratory Results - last 24 hr 10/08/22 16:05: WBC 8.9, RBC 3.22 L, Hgb 9.6 L, Hct 30.4 L, MCV 94.4, MCH 29.8, MCHC 31.6 L, RDW Std Deviation 53.1 H, RDW Coeff of Jitendra 15.3 H, Plt Count 301, MPV 10.1, Immature Gran % (Auto) 1.600 H, Neut % (Auto) 67.4, Lymph % (Auto) 18.5 L, [place] % (Auto) 9.4, Eos % (Auto) 2.5, Baso % (Auto) 0.6, Absolute Neuts (auto) 6.0, Absolute Lymphs (auto) 1.65, Nucleated RBC % 0, ESR 74 H 10/08/22 16:05: Sodium 142, Potassium 4.1, Chloride 109 H, Carbon Dioxide 24.0, Anion Gap 9, BUN 21 H, Creatinine 1.00, Estim Creat Clear Calc 37.68, Est GFR (MDRD) Af Amer 68, Est GFR (MDRD) Non-Af 56 L, BUN/Creatinine Ratio 21.1 H, Glucose 120 H, Calcium 8.7, C-React Prot Ext Range 30.50 H 10/08/22 16:05: Lactic Acid 1.4 Radiology Impression Hand X-Ray 10/08/22 16:20 IMPRESSION: 1. Worsening soft tissue swelling of the third digit. There is slight subluxation of the proximal interphalangeal joint. This is stable. 2. Osteopenia and degenerative changes of the left hand. Electronically Signed: Zay Wolf DO at 16:41 EDT Reading Location ID and State: [address] [place] [address] Tel [phone], Service support , Assessment & Plan Assessment/Plan (1) Cellulitis of finger of left hand: PLAN: And likely abscess. Secondary to recent laceration that she sustained from a fall where her ring apparently dug into her finger and caused a laceration. Patient received Unasyn and vancomycin in the emergency room. Would continue with that regimen on the floor the patient does get admitted here. DW Dr. Urbano, he plans to take patient to OR tonight. Patient is not septic at this time. PLAN: Plan Chronic conditions Dementia Debility Hypertension: Stable continue with lisinopril and metoprolol succinate Depression Hyperlipidemia: Continue with statin VTE prophylaxis: Would place patient on SCDs anticipation of surgery. Charges/Coding Visit Charges Inpatient E&M: 54152 Init Hosp L3
--- NOTE | 2022-10-08 18:11 | NURSING ---
SURGERY RUY LEFT FINGER IRRIGATION AND DEBREDMENT
--- NOTE | 2022-10-08 18:17 | CONS.ORTHO ---
HPI Consult Data Date of Consult: 10/08/22 HPI Narrative HPI Narrative: TATA SETHI, is a 86 F who presents left middle finger swelling redness warmth and pain. Apparently there is a laceration there her Ty is surmising from the ring she was seen apparently 5 or 6 days ago in the ED someone performed a closure there subsequently over the last 2 days from what the tells me become more red swollen and some drainage there. Was called to assess this for concern of a flexor tenosynovitis pyogenic. Patient has baseline dementia but is complaining about pain in the left middle finger especially with flexion. [facility] Medical History (Updated 10/08/22 @ 18:20 by Holden Urbano MD) Bleeding hemorrhoid Dementia Depression HTN (hypertension) Home Medications aspirin 81 mg chewable tablet 81 mg PO DAILY@0800 heart 04/07/13 [History Last Taken Unknown] lisinopril 40 mg tablet 40 mg PO DAILY blood pressure 04/07/13 [History Last Taken Unknown] doxepin 25 mg capsule 1 tab PO QHS depression 06/28/19 [History Last Taken Unknown] acetaminophen 325 mg tablet 650 mg PO Q4H PRN PRN Pain Score 1-03/1606/30/19 [Rx Last Taken Unknown] meclizine 12.5 mg tablet 12.5 mg PO 4X/DAY PRN PRN Vertigo #10 tabs 07/27/19 [Rx Last Taken Unknown] atorvastatin 80 mg tablet 80 mg PO QHS 01/14/22 [History Last Taken Unknown] metoprolol succinate 100 mg tablet,extended release 24 hr 100 mg PO DAILY 01/14/22 [History Last Taken Unknown] acetaminophen 500 mg capsule 1,000 mg PO BID 10/01/22 [History Last Taken Unknown] divalproex 125 mg capsule,delayed release sprinkle 125 mg PO TID 10/01/22 [History Last Taken Unknown] hydroxyzine pamoate 25 mg capsule 25 mg PO BID PRN 10/01/22 [History Last Taken Unknown] melatonin 3 mg capsule 3 mg PO HS 10/01/22 [History Last Taken Unknown] mirtazapine 7.5 mg tablet 7.5 mg PO DAILY 10/01/22 [History Last Taken Unknown] trazodone 50 mg tablet 50 mg PO DAILY 10/01/22 [History Last Taken Unknown] Allergy/AdvReac Type Severity Reaction Status Date / Time hydrochlorothiazide Allergy Unknown Verified 10/08/22 15:21 memantine [From Namenda] Allergy PT UNSURE Verified 10/08/22 15:21 OF REACTION nitrofurantoin Allergy Unknown Verified 10/08/22 15:21 [Nitrofurantoin] NSAIDS (Non-Steroidal Allergy Unknown Verified 10/08/22 15:21 Anti-Inflamma oxaprozin [From Daypro] Allergy Unknown Verified 10/08/22 15:21 rofecoxib [From Vioxx] Allergy Unknown Verified 10/08/22 15:21 Sulfa (Sulfonamide Allergy Hives Verified 10/08/22 15:21 Antibiotics) Family History unable to obtain Social History Smoking Status: Former smoker alcohol intake: never substance use type: does not use Vital Signs Vital Signs Vital Signs: 10/08/22 15:19 10/08/22 17:00 Temperature 97.5 F L 98.2 F Temperature Source Temporal Temporal Pulse Rate 70 74 Respiratory Rate 18 16 Blood Pressure 166/71 H 133/78 H Blood Pressure Mean 102 96 Pulse Ox 100 96 Oxygen Delivery Method Room Air Room Air Weight Weight: 161 lb 8 oz Body Mass Index (BMI) 26.9 Physical Exam Const Negative for oriented x3 General Appearance: cooperative Orientation / Consciousness: confused HEENT normocephalic Resp normal respiratory effort Extremity Extremity Narrative: There is a moderate amount of swelling redness warmth at the left middle finger. It is held near full extension and pain with any sort of attempted range of motion at the PIP and DIP joints. There is a transverse laceration at the volar side been sutured with multiple small nonabsorbable sutures. There is maceration of the skin on the volar side this is approximately the proximal phalanx mid aspect slightly distal from this. There is no active drainage and I am able to express but there is fluctuance there. There is redness and pain tracking along the volar side of the finger with the entire finger being swollen and red and warm. Perfusion appears normal. No redness into the hand strong radial pulse. Lab / Micro Data Attestation: I reviewed the patient's lab results. Result Diagrams: 10/08/22 16:05 10/08/22 16:05 Labs: Laboratory Results - last 24 hr 10/08/22 16:05: WBC 8.9, RBC 3.22 L, Hgb 9.6 L, Hct 30.4 L, MCV 94.4, MCH 29.8, MCHC 31.6 L, RDW Std Deviation 53.1 H, RDW Coeff of Jitendra 15.3 H, Plt Count 301, MPV 10.1, Immature Gran % (Auto) 1.600 H, Neut % (Auto) 67.4, Lymph % (Auto) 18.5 L, [place] % (Auto) 9.4, Eos % (Auto) 2.5, Baso % (Auto) 0.6, Absolute Neuts (auto) 6.0, Absolute Lymphs (auto) 1.65, Nucleated RBC % 0, ESR 74 H 10/08/22 16:05: Sodium 142, Potassium 4.1, Chloride 109 H, Carbon Dioxide 24.0, Anion Gap 9, BUN 21 H, Creatinine 1.00, Estim Creat Clear Calc 37.68, Est GFR (MDRD) Af Amer 68, Est GFR (MDRD) Non-Af 56 L, BUN/Creatinine Ratio 21.1 H, Glucose 120 H, Calcium 8.7, C-React Prot Ext Range 30.50 H 10/08/22 16:05: Lactic Acid 1.4 Radiology Impression Hand X-Ray 10/08/22 16:20 IMPRESSION: 1. Worsening soft tissue swelling of the third digit. There is slight subluxation of the proximal interphalangeal joint. This is stable. 2. Osteopenia and degenerative changes of the left hand. Electronically Signed: Zay Wolf DO at 16:41 EDT Reading Location ID and State: [address] [place] [address] Tel [phone], Service support , Assessment & Plan Assessment/Plan (1) Cellulitis of finger of left hand: (2) Suppurative tenosynovitis of flexor tendon of left hand: PLAN: 86-year-old female with signs symptoms and physical exam findings (3/4 Knavel signs) and lab work (high ESR/CRP despite WBC count) + xray very concerning for a pyogenic flexor tenosynovitis left middle finger or at least an abscess and cellulitis there. Discussed with her Ty the pros and cons risks and benefits of nonoperative management versus immediate urgent irrigation and debridement formally in the OR with sending of cultures. I think the latter would be the more reasonable next step less risk of watchful waiting here patient at high risk of failure of medical management. Consented and marked for a left middle finger irrigation and debridement. We will send cultures. Discussed with the data warehouse specialist as well as anesthesia Dr. Caldwell and hospitalist to admit. Start vancomycin and the hospitalist will order that for MRSA coverage. Ty the and Jackelin understand, no further questions. Patient to remain NPO in preparation. Pros and cons risks and benefits were discussed with the patient including but not limited to infection, pain, stiffness, bleeding, damage to surrounding structures, neurovascular injury, recurrence or retear, failure or wear of hardware or fixation, instability, fracture, deep vein thrombosis and pulmonary embolism, anesthetic risks, , patient dissatisfaction, need for further surgery and other risks. Patient understood and wished to proceed with surgery, and signed the informed consent documentation.
--- NOTE | 2022-10-08 20:00 | PCM.RX.CS ---
Consult Pharmacy has been consulted to manage selected antiobiotic: Vancomycin Type of Consult: New start Prior Doses of Antibiotics Received/Current Regimen: Medications Discontinued Medications Vancomycin HCl 1,750 mg/ (Sodium Chloride) 535 mls @ 250 mls/hr IV X1 ONE Stop: 10/08/22 19:36 Last Admin: 10/08/22 18:01 Dose: 250 mls/hr Labs: Sodium 142 mmol/L (136-145) 10/08/22 16:05 Potassium 4.1 mmol/L (3.5-5.1) 10/08/22 16:05 Chloride 109 mmol/L (98-107) H 10/08/22 16:05 Carbon Dioxide 24.0 mmol/L (21.0-32.0) 10/08/22 16:05 Anion Gap 9 (5-15) 10/08/22 16:05 BUN 21 mg/dL (7-18) H 10/08/22 16:05 Creatinine 1.00 mg/dL (0.55-1.02) 10/08/22 16:05 Est GFR (MDRD) Af Amer 68 mL/min (>60) 10/08/22 16:05 Est GFR (MDRD) Non-Af 56 mL/min (>60) L 10/08/22 16:05 BUN/Creatinine Ratio 21.1 RATIO (10-20) H 10/08/22 16:05 Glucose 120 mg/dL (74-106) H 10/08/22 16:05 Weight used for dosin kg Estimated Creatinine Clearance: 38 Goal Trough: 10-15 mcg/mL Pharmacy Plan for Drug Dosinmg iv x1, 750mg IV q24h with trough prior to 3rd dose. Pharmacy Service will continue to monitor and adjust dosing as required. Follow-Up Labs: Trough Vancomycin - 10/10 @ 1730
--- NOTE | 2022-10-08 20:25 | OP.PCM_ITS ---
Problems Associated Problem List Diagnoses (1) Cellulitis of finger of left hand: (2) Suppurative tenosynovitis of flexor tendon of left hand: Report of Operation Date of Procedure: 10/08/22 Pre-Operative Diagnosis: Left middle finger pyogenic flexor tenosynovitis cellulitis and abscess Post-Operative Diagnosis: Left middle finger abscess and cellulitis early pyogenic flexor tenosynovitis Surgery/Procedure Performed:: Left middle finger irrigation and debridement Surgeon: Holden Urbano Type of Anesthesia: IV Sedation and Local Anesthesiologist: Gabe Caldwell Description of Procedure: Patient given preoperative sedation and a ring block left middle finger by the anesthesiologist Dr Caldwell. Brought to the operating room theater placed supine on the table on the table to the patient's left side. IV moved to the opposite upper extremity. Left upper extremity prepped and draped in the usual sterile fashion with iodine-based prep solution allowing over 3 minutes drying time prior to draping. Preoperative antibiotics were already started vancomycin and Unasyn. Preoperative timeout performed to confirm the site patient the surgery. Began by removing the previously placed sutures opening up the previous laceration. There is a small amount of purulent material as well as granulation tissue and necrotic tissue deep along the flexor tarsha. This seemed to localize at the proximal phalanx. Flexor tendon sheath necrotic and gone at A2 tarsha area. I sent culture and sensitivities for this using swabs 2 swabs were sent. I tracked this along the flexor tendon sheath proximally and distally it did not seem to extend beyond the local extent of the abscess. I debrided the necrotic tissue from around the area there was a small sinus tract proximal to laceration, that I debrided and excised. Infection did not track proximally or distally along the flexor tendon sheath I think this was an early abscess and early pyogenic flexor tenosynovitis. Thorough irrigation with over a liter of normal saline was performed a low-pressure bulb syringe. I then flex the PIP joint to about 30 degrees there is about a 1 cm x 0.5 cm defect at the debrided necrotic area. I closed this with interrupted 3-0 nylon suture. Wound thoroughly irrigated skin cleaned followed by application of antibacterial oint ment Adaptic 4 x 4 gauze and a dorsally based preformed foam and metal splint with the PIP MCP and DIP joints in about 20 to 30 degrees of flexion each to take pressure off the incision. This was overwrapped with Leisa. Case was terminated patient transferred off the operating table and taken to postanesthetic care unit in stable condition. All sponge needle instrument counts were correct no complications. Plan for the patient admitted under the hospitalist service broad-spectrum IV antibiotics with MRSA coverage follow-up on the cultures trend the blood work and check the wound to ensure a healing and good response. Complications none Admit VTE Documentation VTE Present on Admission: No VTE Mechan Device Prophylaxis: SCD's VTE Pharm Prophylaxis ordered?: No Reason prophylaxis not ordered:: Treatment Not Indicated (per hospitalist recommendation) Procedures Musculoskeletal [id number]: Other Procedure See Report
[2022-10-08] MEDS: MELATONIN 3 MG TABLET PO (21:41)
[2022-10-08] MEDS: Divalproex Sodium 125 MG SPRINKLE PO (21:41)
[2022-10-08] MEDS: Atorvastatin Calcium 80 MG Tablet PO (21:41)
[2022-10-08] MEDS: Acetaminophen 500 MG Tablet 1000 MG PO (21:41)
[2022-10-08] MEDS: Mirtazapine 15 MG Tablet 7.5 MG PO (21:41)
[2022-10-08] MEDS: Doxepin Hcl 25 MG Capsule PO (21:41)
[2022-10-08] MEDS: traZODone 50 MG Tablet PO (21:42)
[2022-10-08] MEDS: OLANZapine 5 MG/TAB TAB.RAPDIS PO (22:54)
[2022-10-09 03:42] VITALS: BP 118/67; PULSE 72; RESP 18; TEMP 36.5; O2SAT 95
[2022-10-09] MEDS: oxyCODONE 5 MG Tablet PO (03:45)
[2022-10-09] MEDS: hydrOXYzine PAM 25 MG Capsule PO (03:45)
[2022-10-09] MEDS: Divalproex Sodium 125 MG SPRINKLE PO ×3 (05:21→21:25)
[2022-10-09] MEDS: Acetaminophen 500 MG Tablet 1000 MG PO ×3 (05:21→21:26)
[2022-10-09 06:07] LABS: Absolute Lymphocyte Count 2.02 X10^3/uL (0.83-4.51); Absolute Neutrophil Count 5.1 X10^3/uL (2.0-7.7); Basophil# 0.07 X10^3/uL; Basophil% 0.8 % (0-1); Eosinophil# 0.29 X10^3/uL; Eosinophils% 3.4 % (0-5); Hematocrit 29.8 % (37-47); Hemoglobin 9.1 g/dL (12.0-15.0); Lymphocyte # 2.02 X10^3/ul (0.83-4.51); Mean Corp Hgb Conc 30.5 g/dL (32-36); Mean Corpuscular Hgb 29.3 pg (27.0-32.0); Mean Corpuscular Volume 95.8 fL (81-99); Mean Platelet Vol. 10.1 fl (6.2-12.0); Monocyte# 0.82 X10^3/uL; Monocyte% 9.8 % (0-10); NRBC Flagged by Analyzer 0 % (0-5); Neutrophil # 5.09 X10^3/uL (2.7-7.7); Neutrophil % 60.6 % (47-70); Platelet Count 258 K/mm3 (150-450); RBC Distribution Width CV 15.4 % (11.6-14.6); RBC Distribution Width SD 53.8 fl (35.1-43.9); Red Blood Count 3.11 M/mm3 (4.2-5.4); White Blood Count 8.4 K/mm3 (4.4-11.0)
[2022-10-09 06:39] LABS: Anion Gap 8 (5-15); BUN 14 mg/dL (7-18); BUN/Creat Ratio 16.1 RATIO (10-20); Calcium,Total 8.4 mg/dL (8.5-10.1); Chloride 112 mmol/L (98-107); Creatinine, Serum 0.87 mg/dL (0.55-1.02); EST Glomerular Filtration Rate 66 mL/min (>60); Est Glom Filt Rate - Afr Amer 80 mL/min (>60); Estimated Creatinine Clearance 43.31 ml/min; Glucose 88 mg/dL (74-106); Potassium 3.6 mmol/L (3.5-5.1); Sodium Level 143 mmol/L (136-145)
--- NOTE | 2022-10-09 07:24 | PCM.PN.HOSP ---
Reason for Visit Reason for Visit: Diagnoses Cellulitis of left finger (10/08/22) Other infective (teno)synovitis, left hand (10/08/22) Subjective Subjective Patient is an 86-year-old lady presented with swelling involving the left ring finger. Patient had apparently fallen almost a week prior to admission had a laceration was seen sutures placed in the emergency department discharged home presented back to the emergency department with worsening symptoms a diagnosis of suppurative tenosynovitis of flexor tendon as well as cellulitis of the left hand made patient underwent irrigation and nyasia Objective Data Objective Data Vital Signs: Vital Signs Temp Pulse Resp BP Pulse Ox O2 Del Method 97.7 F L 72 18 118/67 95 Room Air 10/09/22 03:42 10/09/22 03:42 10/09/22 03:42 10/09/22 03:42 10/09/22 03:42 10/09/22 03:45 Oxygen Delivery Method Room Air Weight: 73.709 kg Body Mass Index (BMI) 27.0 Intake & Output: Intake and Output for Last 24 Hours 10/07/22 10/08/22 10/09/22 23:59 23:59 23:59 Intake Total 759 / 759 112 / 112 Output Total 150 / 150 Balance 759 / 759 -38 / -38 Lab / Micro Data Result Diagrams: 10/09/22 05:40 10/09/22 05:40 Labs: Laboratory Results - last 24 hr 10/08/22 16:05: WBC 8.9, RBC 3.22 L, Hgb 9.6 L, Hct 30.4 L, MCV 94.4, MCH 29.8, MCHC 31.6 L, RDW Std Deviation 53.1 H, RDW Coeff of Jitendra 15.3 H, Plt Count 301, MPV 10.1, Immature Gran % (Auto) 1.600 H, Neut % (Auto) 67.4, Lymph % (Auto) 18.5 L, [place] % (Auto) 9.4, Eos % (Auto) 2.5, Baso % (Auto) 0.6, Absolute Neuts (auto) 6.0, Absolute Lymphs (auto) 1.65, Nucleated RBC % 0, ESR 74 H 10/08/22 16:05: Sodium 142, Potassium 4.1, Chloride 109 H, Carbon Dioxide 24.0, Anion Gap 9, BUN 21 H, Creatinine 1.00, Estim Creat Clear Calc 37.68, Est GFR (MDRD) Af Amer 68, Est GFR (MDRD) Non-Af 56 L, BUN/Creatinine Ratio 21.1 H, Glucose 120 H, Calcium 8.7, C-React Prot Ext Range 30.50 H 10/08/22 16:05: Lactic Acid 1.4 10/09/22 05:40: WBC 8.4, RBC 3.11 L, Hgb 9.1 L, Hct 29.8 L, MCV 95.8, MCH 29.3, MCHC 30.5 L, RDW Std Deviation 53.8 H, RDW Coeff of Jitendra 15.4 H, Plt Count 258, MPV 10.1, Immature Gran % (Auto) 1.400 H, Neut % (Auto) 60.6, Lymph % (Auto) 24.0, [place] % (Auto) 9.8, Eos % (Auto) 3.4, Baso % (Auto) 0.8, Absolute Neuts (auto) 5.1, Absolute Lymphs (auto) 2.02, Nucleated RBC % 0 10/09/22 05:40: Sodium 143, Potassium 3.6, Chloride 112 H, Carbon Dioxide 23.0, Anion Gap 8, BUN 14, Creatinine 0.87, Estim Creat Clear Calc 43.31, Est GFR (MDRD) Af Amer 80, Est GFR (MDRD) Non-Af 66, BUN/Creatinine Ratio 16.1, Glucose 88, Calcium 8.4 L Radiography Diagnostic Testing: Radiology Impression Hand X-Ray 10/08/22 16:20 IMPRESSION: 1. Worsening soft tissue swelling of the third digit. There is slight subluxation of the proximal interphalangeal joint. This is stable. 2. Osteopenia and degenerative changes of the left hand. Electronically Signed: Zay Wolf DO at 16:41 EDT Reading Location ID and State: [address] [place] [address] Tel [phone], Service support , Physical Exam Narrative GENERAL: cooperative HEENT: Atraumatic; normocephalic EYES; Anicteric, Normal Conjunctiva NECK; supple, normal thyroid, RESPIRATORY: Diminished to auscultation CARDIOVASCULAR: Regular S1 S2, GI: soft, normoactive bowel sounds, : No Renal angle tenderness; EXTREMITIES: No edema, no clubbing, MUSCULOSKELETAL: Hand in surgical dressing NEURO: Awake; no lateralizing signs. SKIN: No Rash PSYCH; Flat affect Assessment & Plan Assessment/Plan (1) Cellulitis of finger of left hand: PLAN: Patient is an 86-year-old lady presented with swelling involving the left middle finger. Patient had apparently fallen almost a week prior to admission had a laceration was seen sutures placed in the emergency department discharged home presented back to the emergency department with worsening symptoms a diagnosis of suppurative tenosynovitis of flexor tendon as well as cellulitis of the left hand made patient underwent irrigation and debridement 1. Cellulitis of the left hand with suppurative tenosynovitis of the flexor tendon ? Patient underwent Left middle finger irrigation and debridement by Dr. Holden Urbano on 10/08/2022. Culture sent patient started on broad-spectrum antibiotic 2. Dementia with occasional behavioral agitation ? Supportive care 3. Hypertension - Blood pressure controlled, home medications continued with dose adjustment as needed 4. Dyslipidemia -Patient is on statin therapy, continued at home dose 5. Depression ? Patient is on Remeron at night 6. DVT prophylaxis - On enoxaparin Time spent in the patient's overall evaluation,decision-making process, review of diagnostic data, adjustment of management, discussion with other providers, nursing nursing and ancillary staff involved in patient's care documentation, 55 Minutes Charges/Coding Visit Charges Inpatient E&M: [address]26 [place] [id number]
[2022-10-09 08:21] VITALS: PULSE 78
[2022-10-09] MEDS: Metoprolol(XL)Succ 100 MG Tablet PO (08:21)
[2022-10-09] MEDS: Nystatin Powder 15gm Bottle 1 APPLIC TOPICAL ×2 (08:21→21:26)
[2022-10-09] MEDS: Menthol/Lanolin/Calamine/Znox 113 GM Tube 1 APPLIC TOPICAL ×2 (08:21→21:24)
[2022-10-09] MEDS: OLANZapine 5 MG/TAB TAB.RAPDIS PO ×2 (08:22→23:03)
[2022-10-09] MEDS: Lisinopril 20 MG Tablet PO (08:24)
--- NOTE | 2022-10-09 08:31 | WOUNDNOTE ---
wound photo: left long finger
--- NOTE | 2022-10-09 08:32 | WOUNDNOTE ---
wound photo: left long finger
[2022-10-09 09:45] VITALS: BP 120/44; PULSE 78; RESP 18; TEMP 36.3; O2SAT 100
[2022-10-09] MEDS: Enoxaparin 40 MG/0.4 ML Syringe SC (10:45)
[2022-10-09 14:47] VITALS: BP 144/77; PULSE 80; RESP 18; TEMP 36.8; O2SAT 98
--- NOTE | 2022-10-09 14:54 | CASEMGMT ---
Social Work MAHI met with pt and to discuss discharge plan. Pt is currently at [facility] in the memory care unit. Pt spouse states he has been trying to get pt moved and has been working with his Chute Builder Jose Antonio. Mr. Hooks call staff attorney while SW was in room and included him in conversation. Pt and staff attorney have been looking into SNF options and have chosen 1. [facility] and 2. [facility] and they have spoke to both facilities. At this time Mr. Hooks is requesting pt be admitted to [facility] initially under skilled care with the intention to stay alf. MAHI did not provide list of SNF options as Mr. Hooks and staff attorney have already reviewed and made choices of area SNFs. Dora d/c clinical assistant, updated and to make referral to [facility]. Plan: [facility], pending acceptance YOSELIN Sandoval
--- NOTE | 2022-10-09 14:57 | CASEMGMT ---
Discharge Planning Referral sent to [facility] via [facility]. [facility] notified that patient would like to remain senior living. Dora Richards
--- NOTE | 2022-10-09 15:04 | CASEMGMT ---
Social Work SW spoke with pt spouse who confirms pt has both a living will and health care POA naming Clive Hooks. SW notified spouse that documents are not on file and requested they be brought in for scanning into pt medical record. YOSELIN Sandoval
--- NOTE | 2022-10-09 16:14 | CASEMGMT ---
Social work SW updated pt spouse that [facility] not made a determination of acceptance yet. Pt will remain at hospital until SNF placement is secured. SW to continue to follow. Plan: [facility], pending acceptance YOSELIN Valentin
[2022-10-09 21:22] VITALS: BP 121/51; PULSE 78; RESP 18; TEMP 36.9; O2SAT 97
[2022-10-09] MEDS: Atorvastatin Calcium 10 MG Tablet PO (21:25)
[2022-10-09] MEDS: traZODone 50 MG Tablet PO (21:25)
[2022-10-09] MEDS: MELATONIN 3 MG TABLET PO (21:26)
[2022-10-09] MEDS: Mirtazapine 15 MG Tablet 7.5 MG PO (21:26)
[2022-10-09] MEDS: Doxepin Hcl 25 MG Capsule PO (21:28)
[2022-10-09] MEDS: 0.9% Saline Lock 10 ML Syringe IV (21:34)
[2022-10-10] VITALS (8 sets, daily range): BP systolic 135–154; BP diastolic 58–92; PULSE 65–84; RESP 16–20; TEMP 36.4–36.8; O2SAT 93–97
[2022-10-10 02:02] LABS: Absolute Lymphocyte Count 2.15 X10^3/uL (0.83-4.51); Absolute Neutrophil Count 4.1 X10^3/uL (2.0-7.7); Basophil# 0.04 X10^3/uL; Basophil% 0.6 % (0-1); Eosinophil# 0.26 X10^3/uL; Eosinophils% 3.6 % (0-5); Hematocrit 28.5 % (37-47); Hemoglobin 9.2 g/dL (12.0-15.0); Lymphocyte # 2.15 X10^3/ul (0.83-4.51); Lymphocyte % 29.7 % (19-41); Mean Corp Hgb Conc 32.3 g/dL (32-36); Mean Corpuscular Volume 92.8 fL (81-99); Mean Platelet Vol. 9.6 fl (6.2-12.0); Monocyte# 0.59 X10^3/uL; Monocyte% 8.1 % (0-10); NRBC Flagged by Analyzer 0 % (0-5); Neutrophil # 4.06 X10^3/uL (2.7-7.7); Neutrophil % 56.1 % (47-70); Platelet Count 273 K/mm3 (150-450); RBC Distribution Width CV 15.1 % (11.6-14.6); RBC Distribution Width SD 51.7 fl (35.1-43.9); Red Blood Count 3.07 M/mm3 (4.2-5.4); White Blood Count 7.2 K/mm3 (4.4-11.0)
[2022-10-10 02:24] LABS: Anion Gap 8 (5-15); BUN 18 mg/dL (7-18); BUN/Creat Ratio 18.5 RATIO (10-20); Calcium,Total 8.6 mg/dL (8.5-10.1); Chloride 110 mmol/L (98-107); Creatinine, Serum 0.97 mg/dL (0.55-1.02); EST Glomerular Filtration Rate 58 mL/min (>60); Est Glom Filt Rate - Afr Amer 70 mL/min (>60); Estimated Creatinine Clearance 38.85 ml/min; Glucose 96 mg/dL (74-106); Magnesium 2.3 mg/dL (1.6-2.6); Phosphorus 4.5 mg/dL (2.5-4.9); Potassium 4.2 mmol/L (3.5-5.1); Sodium Level 142 mmol/L (136-145)
--- NOTE | 2022-10-10 06:21 | NURSING ---
pt refusing pills at this time.
[2022-10-10] MEDS: Acetaminophen 500 MG Tablet 1000 MG PO ×3 (06:39→21:22)
[2022-10-10] MEDS: Divalproex Sodium 125 MG SPRINKLE PO ×3 (06:39→21:22)
--- NOTE | 2022-10-10 06:56 | PCM.PN.HOSP ---
Reason for Visit Reason for Visit: Diagnoses Cellulitis of left finger (10/08/22) Other infective (teno)synovitis, left hand (10/08/22) Subjective Subjective Wound cultures from patient I&D still pending. Patient remains Unasyn and vancomycin Objective Data Objective Data Vital Signs: Vital Signs Temp Pulse Resp BP Pulse Ox O2 Del Method 97.6 F L 70 16 135/64 H 94 Room Air 10/10/22 02:29 10/10/22 02:29 10/10/22 02:29 10/10/22 02:29 10/10/22 02:10/10/22 02:29 Oxygen Delivery Method Room Air Weight: 73.709 kg Body Mass Index (BMI) 27.0 Intake & Output: Intake and Output for Last 24 Hours 10/08/22 10/09/22 10/10/22 23:59 23:59 23:59 Intake Total 759 / 759 1268 / 1268 395.75 / 395.75 Output Total 1250 / 1250 800 / 800 Balance 759 / 759 18 / 18 -404.25 / -404.25 Lab / Micro Data Result Diagrams: 10/10/22 01:50 10/10/22 01:50 Labs: Laboratory Results - last 24 hr 10/10/22 01:50: WBC 7.2, RBC 3.07 L, Hgb 9.2 L, Hct 28.5 L, MCV 92.8, MCH 30.0, MCHC 32.3 D, RDW Std Deviation 51.7 H, RDW Coeff of Jitendra 15.1 H, Plt Count 273, MPV 9.6, Immature Gran % (Auto) 1.900 H, Neut % (Auto) 56.1, Lymph % (Auto) 29.7, [place] % (Auto) 8.1, Eos % (Auto) 3.6, Baso % (Auto) 0.6, Absolute Neuts (auto) 4.1, Absolute Lymphs (auto) 2.15, Nucleated RBC % 0 10/10/22 01:50: Sodium 142, Potassium 4.2, Chloride 110 H, Carbon Dioxide 24.0, Anion Gap 8, BUN 18, Creatinine 0.97, Estim Creat Clear Calc 38.85, Est GFR (MDRD) Af Amer 70, Est GFR (MDRD) Non-Af 58 L, BUN/Creatinine Ratio 18.5, Glucose 96, Calcium 8.6, Phosphorus 4.5, Magnesium 2.3 Micro: Microbiology 10/08/22 Unknown Wound - Finger Gram Stain - Final Physical Exam Narrative GENERAL: cooperative HEENT: Atraumatic; normocephalic EYES; Anicteric, Normal Conjunctiva NECK; supple, normal thyroid, RESPIRATORY: Diminished to auscultation CARDIOVASCULAR: Regular S1 S2, GI: soft, normoactive bowel sounds, : No Renal angle tenderness; EXTREMITIES: No edema, no clubbing, MUSCULOSKELETAL: Hand in surgical dressing NEURO: Awake; no lateralizing signs. SKIN: No Rash PSYCH; Flat affect Assessment & Plan Assessment/Plan (1) Cellulitis of finger of left hand: PLAN: Patient is an 86-year-old lady presented with swelling involving the left middle finger. Patient had apparently fallen almost a week prior to admission had a laceration was seen sutures placed in the emergency department discharged home presented back to the emergency department with worsening symptoms a diagnosis of suppurative tenosynovitis of flexor tendon as well as cellulitis of the left hand made patient underwent irrigation and debridement 1. Cellulitis of the left hand with suppurative tenosynovitis of the flexor tendon ? Patient underwent Left middle finger irrigation and debridement by Dr. Holden Urbano on 10/08/2022. Culture sent patient started on broad-spectrum antibiotic -10/10/2022;Wound cultures from patient I&D still pending. Patient remains Unasyn and vancomycin 2. Dementia with occasional behavioral agitation ? Supportive care 3. Hypertension - Blood pressure controlled, home medications continued with dose adjustment as needed 4. Dyslipidemia -Patient is on statin therapy, continued at home dose 5. Depression ? Patient is on Remeron at night 6. Anemia - Secondary to chronic disorder monitoring H&H and transfuse if patient becomes symptomatic or hemoglobin falls below 7 7. DVT prophylaxis - On enoxaparin Time spent in the patient's overall evaluation,decision-making process, review of diagnostic data, adjustment of management, discussion with other providers, nursing nursing and ancillary staff involved in patient's care documentation, 35 Minutes Charges/Coding Visit Charges Inpatient E&M: 06123 Subs Hosp L2
[2022-10-10] MEDS: Nystatin Powder 15gm Bottle 1 APPLIC TOPICAL ×2 (10:21→21:19)
[2022-10-10] MEDS: Enoxaparin 40 MG/0.4 ML Syringe SC (10:21)
[2022-10-10] MEDS: Menthol/Lanolin/Calamine/Znox 113 GM Tube 1 APPLIC TOPICAL ×2 (10:22→21:19)
[2022-10-10] MEDS: Metoprolol(XL)Succ 100 MG Tablet PO (10:22)
[2022-10-10] MEDS: Lisinopril 20 MG Tablet PO (10:23)
[2022-10-10] MEDS: OLANZapine 5 MG/TAB TAB.RAPDIS PO ×2 (10:23→21:22)
--- NOTE | 2022-10-10 11:36 | NURSING ---
call placed to [facility] to request copy of POA paperwork, their nurse stated they do not have a copy on file
--- NOTE | 2022-10-10 11:42 | NURSING ---
message given to Malika CHAMPAGNE that director of [facility] [facility] Amber requesting she give her a call (phone number included) stating she just talked with regarding patient returning to them, concerned about confusion of .
--- NOTE | 2022-10-10 16:15 | CASEMGMT ---
Social Work Note MAHI was informed by suction drum drier operator, [facility] was inquiring about patient's return stating patient's informed them the patient was returning to [facility]. MAHI met with patient and patient's and introduced herself and role as [facility] Muck Operator. Patient was seated in hospital chair with her eyes closed. MAHI inquired about their discharge plan, patient's reports they want patient to go to [facility] and reports working with MAHI Peterson. MAHI explained the referral was sent to [facility] but they had not responded yet. Patient's reports he was contacted by [facility] inquiring about the patient and reports being vague because he didn't think they knew the plan. Patient explained when they contacted him for a second time he informed them the patient was going to [facility]. MAHI explained social work coordinator will be in on Wednesday and continue to assist with D/C plan. Patient's requesting assistance to get patient back to bed. MAHI informed RN. MAHI contacted [facility] to review patient's discharge plan, explaining the patient had not been accepted to [facility] at this time. GAGE Martinez reports patient's seemed to be confused about the plan but has been informed. GAGE Martinez reports patient and family are still responsible to complete 30 day notice and pay for patient's room for those 30 days. GAGE unsure if other staff reminded patient's of this policy when they spoke with him earlier. Plan: pending [facility] Malika SAAVEDRA, CELY
[2022-10-10 18:08] LABS: Vancomycin, Trough Level 9.2 ug/mL (5.0-15.0)
[2022-10-10] MEDS: hydrOXYzine PAM 25 MG Capsule PO (19:03)
--- NOTE | 2022-10-10 20:39 | PCM.RX.CS ---
Consult Pharmacy has been consulted to manage selected antiobiotic: Vancomycin Type of Consult: Follow-up Labs: Sodium 142 mmol/L (136-145) 10/10/22 01:50 Potassium 4.2 mmol/L (3.5-5.1) 10/10/22 01:50 Chloride 110 mmol/L (98-107) H 10/10/22 01:50 Carbon Dioxide 24.0 mmol/L (21.0-32.0) 10/10/22 01:50 Anion Gap 8 (5-15) 10/10/22 01:50 BUN 18 mg/dL (7-18) 10/10/22 01:50 Creatinine 0.97 mg/dL (0.55-1.02) 10/10/22 01:50 Est GFR (MDRD) Af Amer 70 mL/min (>60) 10/10/22 01:50 Est GFR (MDRD) Non-Af 58 mL/min (>60) L 10/10/22 01:50 BUN/Creatinine Ratio 18.5 RATIO (10-20) 10/10/22 01:50 Glucose 96 mg/dL (74-106) 10/10/22 01:50 Vancomycin Trough 9.2 ug/mL (5.0-15.0) 10/10/22 17:29 Microbiology: Microbiology 10/10/22 12:19 Stool C. difficile DNA Amplification - Final 10/08/22 Unknown Wound - Finger Gram Stain - Final 10/08/22 Unknown Wound - Finger Wound Culture - Preliminary Staphylococcus aureus Goal Trough: 10-15 mcg/mL Pharmacy Plan for Drug Dosing: Pharmacy Service will continue to monitor and adjust dosing as required. TORUGH 9.2 @ 23 HRS. NO CHANGES FOLLOW UP TROUGH IN 2 DAYS Follow-Up Labs: Trough Vancomycin Labs to be done on [date and time ordered]: 10/12 @ 6639
[2022-10-10] MEDS: MELATONIN 3 MG TABLET PO (21:22)
[2022-10-10] MEDS: Atorvastatin Calcium 10 MG Tablet PO (21:22)
[2022-10-10] MEDS: traZODone 50 MG Tablet PO (21:22)
[2022-10-10] MEDS: Mirtazapine 15 MG Tablet 7.5 MG PO (21:22)
[2022-10-10] MEDS: Doxepin Hcl 25 MG Capsule PO (21:23)
[2022-10-11] MEDS: Divalproex Sodium 125 MG SPRINKLE PO ×3 (06:00→21:55)
[2022-10-11] MEDS: Acetaminophen 500 MG Tablet 1000 MG PO ×3 (06:00→21:55)
[2022-10-11 06:11] VITALS: BP 140/64; PULSE 69; RESP 16; TEMP 37.1; O2SAT 94
[2022-10-11 07:15] LABS: Absolute Neutrophil Count 3.1 X10^3/uL (2.0-7.7); Basophil# 0.05 X10^3/uL; Basophil% 0.8 % (0-1); Eosinophil# 0.29 X10^3/uL; Eosinophils% 4.9 % (0-5); Hematocrit 28.6 % (37-47); Hemoglobin 8.8 g/dL (12.0-15.0); Lymphocyte % 30.2 % (19-41); Mean Corp Hgb Conc 30.8 g/dL (32-36); Mean Corpuscular Hgb 29.5 pg (27.0-32.0); Mean Platelet Vol. 10.5 fl (6.2-12.0); Monocyte# 0.54 X10^3/uL; NRBC Flagged by Analyzer 0 % (0-5); Neutrophil # 3.08 X10^3/uL (2.7-7.7); Neutrophil % 51.6 % (47-70); Platelet Count 268 K/mm3 (150-450); RBC Distribution Width CV 15.2 % (11.6-14.6); RBC Distribution Width SD 54.2 fl (35.1-43.9); Red Blood Count 2.98 M/mm3 (4.2-5.4)
--- NOTE | 2022-10-11 07:18 | PCM.PN.HOSP ---
Reason for Visit Reason for Visit: Diagnoses Cellulitis of left finger (10/08/22) Other infective (teno)synovitis, left hand (10/08/22) Subjective Subjective Wound cultures so far positive for Staphylococcus aureus. Final sensitivities pending. Objective Data Objective Data Vital Signs: Vital Signs Temp Pulse Resp BP Pulse Ox O2 Del Method 98.8 F 69 16 140/64 H 94 Room Air 10/11/22 06:11 10/11/22 06:11 10/11/22 06:11 10/11/22 06:11 10/11/22 06:11 10/11/22 06:15 Oxygen Delivery Method Room Air Weight: 73.709 kg Body Mass Index (BMI) 27.0 Intake & Output: Intake and Output for Last 24 Hours 10/09/22 10/10/22 10/11/22 23:59 23:59 23:59 Intake Total 1268 / 1268 1084.75 / 1084.75 255.25 / 255.25 Output Total 1250 / 1250 1700 / 1700 300 / 300 Balance 18 / -615.25 / -615.25 -44.75 / -44.75 Lab / Micro Data Result Diagrams: 10/11/22 05:13 10/11/22 05:13 Labs: Laboratory Results - last 24 hr 10/10/22 17:29: Vancomycin Trough 9.2 10/11/22 05:13: WBC 6.0, RBC 2.98 L, Hgb 8.8 L, Hct 28.6 L, MCV 96.0, MCH 29.5, MCHC 30.8 L, RDW Std Deviation 54.2 H, RDW Coeff of Jitendra 15.2 H, Plt Count 268, MPV 10.5, Immature Gran % (Auto) 3.500 H, Neut % (Auto) 51.6, Lymph % (Auto) 30.2, [place] % (Auto) 9.0, Eos % (Auto) 4.9, Baso % (Auto) 0.8, Absolute Neuts (auto) 3.1, Absolute Lymphs (auto) 1.80, Nucleated RBC % 0 Micro: Microbiology 10/08/22 16:50 Blood Culture (Wb) - Anticubital Left Blood Culture - Preliminary No growth in 48 hours. 10/08/22 16:45 Blood Culture (Wb) - Left Wrist Blood Culture - Preliminary No growth in 48 hours. 10/10/22 12:19 Stool C. difficile DNA Amplification - Final 10/08/22 Unknown Wound - Finger Gram Stain - Final 10/08/22 Unknown Wound - Finger Wound Culture - Preliminary Staphylococcus aureus Physical Exam Narrative GENERAL: cooperative HEENT: Atraumatic; normocephalic EYES; Anicteric, Normal Conjunctiva NECK; supple, normal thyroid, RESPIRATORY: Diminished to auscultation CARDIOVASCULAR: Regular S1 S2, GI: soft, normoactive bowel sounds, : No Renal angle tenderness; EXTREMITIES: No edema, no clubbing, MUSCULOSKELETAL: Hand in surgical dressing NEURO: Awake; no lateralizing signs. SKIN: No Rash PSYCH; Flat affect Assessment & Plan Assessment/Plan (1) Cellulitis of finger of left hand: PLAN: Patient is an 86-year-old lady presented with swelling involving the left middle finger. Patient had apparently fallen almost a week prior to admission had a laceration was seen sutures placed in the emergency department discharged home presented back to the emergency department with worsening symptoms a diagnosis of suppurative tenosynovitis of flexor tendon as well as cellulitis of the left hand made patient underwent irrigation and debridement 1. Cellulitis of the left hand with suppurative tenosynovitis of the flexor tendon ? Patient underwent Left middle finger irrigation and debridement by Dr. Holden Urbano on 10/08/2022. Culture sent patient started on broad-spectrum antibiotic -10/10/2022;Wound cultures from patient I&D still pending. Patient remains Unasyn and vancomycin ? 10/11/2022;Wound cultures so far positive for Staphylococcus aureus. Final sensitivities pending. 2. Dementia with occasional behavioral agitation ? Supportive care 3. Hypertension - Blood pressure controlled, home medications continued with dose adjustment as needed 4. Dyslipidemia -Patient is on statin therapy, continued at home dose 5. Depression ? Patient is on Remeron at night 6. Anemia - Secondary to chronic disorder monitoring H&H and transfuse if patient becomes symptomatic or hemoglobin falls below 7 7. DVT prophylaxis - On enoxaparin Time spent in the patient's overall evaluation,decision-making process, review of diagnostic data, adjustment of management, discussion with other providers, nursing nursing and ancillary staff involved in patient's care documentation, 35 Minutes Charges/Coding Visit Charges Inpatient E&M: 15363 Subs Hosp L2
[2022-10-11 07:48] LABS: Anion Gap 7 (5-15); BUN 15 mg/dL (7-18); BUN/Creat Ratio 18.1 RATIO (10-20); Calcium,Total 8.5 mg/dL (8.5-10.1); Chloride 111 mmol/L (98-107); Creatinine, Serum 0.83 mg/dL (0.55-1.02); EST Glomerular Filtration Rate 70 mL/min (>60); Est Glom Filt Rate - Afr Amer 84 mL/min (>60); Glucose 89 mg/dL (74-106); Potassium 3.7 mmol/L (3.5-5.1); Sodium Level 144 mmol/L (136-145)
[2022-10-11 08:08] VITALS: PULSE 69
[2022-10-11] MEDS: Lisinopril 20 MG Tablet PO (08:08)
[2022-10-11] MEDS: Enoxaparin 40 MG/0.4 ML Syringe SC (08:08)
[2022-10-11] MEDS: Metoprolol(XL)Succ 100 MG Tablet PO (08:08)
[2022-10-11] MEDS: OLANZapine 5 MG/TAB TAB.RAPDIS PO ×2 (08:08→21:55)
[2022-10-11] MEDS: Menthol/Lanolin/Calamine/Znox 113 GM Tube 1 APPLIC TOPICAL ×2 (08:08→21:54)
[2022-10-11] MEDS: Nystatin Powder 15gm Bottle 1 APPLIC TOPICAL ×2 (08:09→21:54)
--- NOTE | 2022-10-11 11:01 | PCA ---
copy of health care power of station operator and living will placed on chart
[2022-10-11 11:13] VITALS: BP 138/75; PULSE 66; RESP 18; TEMP 36.7; O2SAT 98
[2022-10-11 14:31] VITALS: BP 111/66; PULSE 65; RESP 18; TEMP 36.6; O2SAT 99
--- NOTE | 2022-10-11 15:06 | PCM.PN.ORT ---
Subjective Subjective Note for POD 1 FU to I and D left middle finger. Saw the patient around 245pm WednesdayOctober 09. Objective Data Objective Data Vital Signs: Vital Signs Temp Pulse Resp BP Pulse Ox O2 Del Method 98 F 65 18 111/66 99 Room Air 10/11/22 14:31 10/11/22 14:31 10/11/22 14:31 10/11/22 14:31 10/11/22 14:31 10/11/22 14:31 Oxygen Delivery Method Room Air Weight: 162 lb 8 oz Body Mass Index (BMI) 27.0 Intake & Output: Intake and Output for Last 24 Hours 10/09/22 10/10/22 10/11/22 23:59 23:59 23:59 Intake Total 1268 / 1268 1084.75 / 1084.75 367.25 / 367.25 Output Total 1250 / 1250 1700 / 1700 300 / 300 Balance -615.25 / -615.25 67.25 / 67.25 Lab / Micro Data Result Diagrams: 10/11/22 05:13 10/11/22 05:13 Labs: Laboratory Results - last 24 hr 10/10/22 17:29: Vancomycin Trough 9.2 10/11/22 05:13: WBC 6.0, RBC 2.98 L, Hgb 8.8 L, Hct 28.6 L, MCV 96.0, MCH 29.5, MCHC 30.8 L, RDW Std Deviation 54.2 H, RDW Coeff of Jitendra 15.2 H, Plt Count 268, MPV 10.5, Immature Gran % (Auto) 3.500 H, Neut % (Auto) 51.6, Lymph % (Auto) 30.2, [place] % (Auto) 9.0, Eos % (Auto) 4.9, Baso % (Auto) 0.8, Absolute Neuts (auto) 3.1, Absolute Lymphs (auto) 1.80, Nucleated RBC % 0 10/11/22 05:13: Sodium 144, Potassium 3.7, Chloride 111 H, Carbon Dioxide 26.0, Anion Gap 7, BUN 15, Creatinine 0.83, Estim Creat Clear Calc 45.40, Est GFR (MDRD) Af Amer 84, Est GFR (MDRD) Non-Af 70, BUN/Creatinine Ratio 18.1, Glucose 89, Calcium 8.5 Micro: Microbiology 10/08/22 Unknown Wound - Finger Gram Stain - Final 10/08/22 Unknown Wound - Finger Wound Culture - Preliminary Staphylococcus aureus 10/08/22 16:50 Blood Culture (Wb) - Anticubital Left Blood Culture - Preliminary No growth in 48 hours. 10/08/22 16:45 Blood Culture (Wb) - Left Wrist Blood Culture - Preliminary No growth in 48 hours. 10/10/22 12:19 Stool C. difficile DNA Amplification - Final Physical Exam Narrative changed the dressing, wound looks well opposed, no drainage, less redness and swelling today, changed to new gauze and re splinted. finger warm well perfused. left middle finger Assessment & Plan Assessment/Plan (1) Cellulitis of finger of left hand: PLAN: 86 F with infection of left middle finger. Incision looks good. Continue broad spec antibiotics until sensitivities back. S aureus for now. Step down to PO antibiotics when sensitivities know, outpatient antibiotics and FU in clinic. OK to change dressings daily and recommend for finger to be held in flexion and in splint until wound heals.
[2022-10-11] MEDS: hydrOXYzine PAM 25 MG Capsule PO (19:23)
[2022-10-11 21:48] VITALS: BP 139/62; PULSE 71; RESP 18; TEMP 36.9; O2SAT 96
[2022-10-11] MEDS: MELATONIN 3 MG TABLET PO (21:55)
[2022-10-11] MEDS: Doxepin Hcl 25 MG Capsule PO (21:55)
[2022-10-11] MEDS: Mirtazapine 15 MG Tablet 7.5 MG PO (21:55)
[2022-10-11] MEDS: traZODone 50 MG Tablet PO (21:55)
[2022-10-11] MEDS: Atorvastatin Calcium 10 MG Tablet PO (21:56)
[2022-10-12] MEDS: Acetaminophen 500 MG Tablet 1000 MG PO ×2 (05:37→11:45)
[2022-10-12] MEDS: Divalproex Sodium 125 MG SPRINKLE PO ×2 (05:38→11:45)
[2022-10-12 05:43] VITALS: BP 135/71; PULSE 71; RESP 18; TEMP 36.3; O2SAT 93
[2022-10-12 05:54] LABS: Absolute Lymphocyte Count 1.72 X10^3/uL (0.83-4.51); Absolute Neutrophil Count 3.8 X10^3/uL (2.0-7.7); Basophil# 0.05 X10^3/uL; Basophil% 0.8 % (0-1); Eosinophil# 0.29 X10^3/uL; Eosinophils% 4.5 % (0-5); Hemoglobin 8.4 g/dL (12.0-15.0); Lymphocyte # 1.72 X10^3/ul (0.83-4.51); Lymphocyte % 26.5 % (19-41); Mean Corp Hgb Conc 31.1 g/dL (32-36); Mean Corpuscular Hgb 29.6 pg (27.0-32.0); Mean Corpuscular Volume 95.1 fL (81-99); Mean Platelet Vol. 10.1 fl (6.2-12.0); Monocyte# 0.51 X10^3/uL; Monocyte% 7.9 % (0-10); NRBC Flagged by Analyzer 0 % (0-5); Neutrophil # 3.75 X10^3/uL (2.7-7.7); Neutrophil % 57.8 % (47-70); Platelet Count 262 K/mm3 (150-450); RBC Distribution Width CV 15.1 % (11.6-14.6); RBC Distribution Width SD 52.5 fl (35.1-43.9); Red Blood Count 2.84 M/mm3 (4.2-5.4); White Blood Count 6.5 K/mm3 (4.4-11.0)
[2022-10-12 06:32] LABS: Anion Gap 8 (5-15); BUN 16 mg/dL (7-18); BUN/Creat Ratio 16.9 RATIO (10-20); Calcium,Total 8.4 mg/dL (8.5-10.1); Chloride 111 mmol/L (98-107); Creatinine, Serum 0.95 mg/dL (0.55-1.02); EST Glomerular Filtration Rate 60 mL/min (>60); Est Glom Filt Rate - Afr Amer 72 mL/min (>60); Estimated Creatinine Clearance 39.67 ml/min; Glucose 102 mg/dL (74-106); Potassium 4.1 mmol/L (3.5-5.1); Sodium Level 143 mmol/L (136-145)
[2022-10-12] MEDS: hydrOXYzine PAM 25 MG Capsule PO ×2 (07:13→13:31)
--- NOTE | 2022-10-12 08:36 | WOUNDNOTE ---
wound photo: left long finger
--- NOTE | 2022-10-12 08:37 | WOUNDNOTE ---
wound photo: left long finger
[2022-10-12] MEDS: Enoxaparin 40 MG/0.4 ML Syringe SC (09:18)
[2022-10-12] MEDS: Nystatin Powder 15gm Bottle 1 APPLIC TOPICAL (09:18)
[2022-10-12 09:19] VITALS: PULSE 71
[2022-10-12] MEDS: Lisinopril 20 MG Tablet PO (09:19)
[2022-10-12] MEDS: OLANZapine 5 MG/TAB TAB.RAPDIS PO (09:19)
[2022-10-12] MEDS: Metoprolol(XL)Succ 100 MG Tablet PO (09:19)
[2022-10-12] MEDS: Menthol/Lanolin/Calamine/Znox 113 GM Tube 1 APPLIC TOPICAL (09:21)
--- NOTE | 2022-10-12 09:39 | PCM.PN.ORT ---
Subjective Subjective POD 4 . no pain or other concerns (patient has dementia) Objective Data Objective Data left middle finger - normal perfusion, wound mild clear drainage on dressing, changed the dressing new adaptic, gauze, winsome and jessica. with splint to prevent full extension. no redness or warmth, incision opposed. edges clean. Vital Signs: Vital Signs Temp Pulse Resp BP Pulse Ox O2 Del Method 97.3 F L 71 18 135/71 H 93 Room Air 10/12/22 05:43 10/12/22 09:19 10/12/22 05:43 10/12/22 05:43 10/12/22 05:43 10/12/22 05:43 Oxygen Delivery Method Room Air Weight: 162 lb 8 oz Body Mass Index (BMI) 27.0 Intake & Output: Intake and Output for Last 24 Hours 10/10/22 10/11/22 10/12/22 23:59 23:59 23:59 Intake Total 1084.75 / 1084.75 1384.25 / 1384.25 424 / 424 Output Total 1700 / 1700 300 / 300 600 / 600 Balance -615.25 / -615.25 1084.25 / 1084.25 -176 / -176 Lab / Micro Data Result Diagrams: 10/12/22 05:20 10/12/22 05:20 Labs: Laboratory Results - last 24 hr 10/12/22 05:20: WBC 6.5, RBC 2.84 L, Hgb 8.4 L, Hct 27.0 L, MCV 95.1, MCH 29.6, MCHC 31.1 L, RDW Std Deviation 52.5 H, RDW Coeff of Jitendra 15.1 H, Plt Count 262, MPV 10.1, Immature Gran % (Auto) 2.500 H, Neut % (Auto) 57.8, Lymph % (Auto) 26.5, [place] % (Auto) 7.9, Eos % (Auto) 4.5, Baso % (Auto) 0.8, Absolute Neuts (auto) 3.8, Absolute Lymphs (auto) 1.72, Nucleated RBC % 0 10/12/22 05:20: Sodium 143, Potassium 4.1, Chloride 111 H, Carbon Dioxide 24.0, Anion Gap 8, BUN 16, Creatinine 0.95, Estim Creat Clear Calc 39.67, Est GFR (MDRD) Af Amer 72, Est GFR (MDRD) Non-Af 60, BUN/Creatinine Ratio 16.9, Glucose 102, Calcium 8.4 L Micro: Microbiology 10/08/22 Unknown Wound - Finger Gram Stain - Final 10/08/22 Unknown Wound - Finger Wound Culture - Final Staphylococcus aureus 10/08/22 Unknown Wound - Finger Anaerobic Culture - Preliminary 10/08/22 16:50 Blood Culture (Wb) - Anticubital Left Blood Culture - Preliminary No growth in 48 hours. 10/08/22 16:45 Blood Culture (Wb) - Left Wrist Blood Culture - Preliminary No growth in 48 hours. 10/10/22 12:19 Stool C. difficile DNA Amplification - Final Assessment & Plan Assessment/Plan (1) Cellulitis of finger of left hand: PLAN: POD 4. ashley sensitive s aureus. Discussed with admitting physician this morning. OK for outpatient FU later this week. PO antibiotics, recommend consult with ID but minimum 10 days. (2) Suppurative tenosynovitis of flexor tendon of left hand:
--- NOTE | 2022-10-12 09:53 | CASEMGMT ---
Addendum entered by Becky Eli 10/12/22 11:08: Pt here at [facility]. SW spoke to in person and explained policy of paying for 30 days at [facility] even if pt will not be there to give [facility] notice that pt not returning. explained had been told this already and was alright with this. stated wants pt to be at [facility] snf from now on if [facility] is able to accept. [facility] is currently reviewing and SW updated pt of this. SW provided contact number for to reach SW if necessary. stated would have to leave for a short time today but will be back later to check on pt. SW will await determination from [facility]. Original Note: Social Work SW received follow up request from weekend SW to speak to pt regarding the need for pt and family to give [facility] 30 day notice and continue paying for pt room there during these 30 days. SW left message on pt VM explaining this information and provided contact number if , Clive, would need to ask questions. YOSELIN Crespo
--- NOTE | 2022-10-12 10:52 | CASEMGMT ---
Discharge Planning Requested updates sent to [facility] via [employer]. Dora Richards
[2022-10-12 11:00] VITALS: BP 146/87; PULSE 71; RESP 18; TEMP 36.4; O2SAT 97
[2022-10-12] MEDS: 0.9% Saline Lock 10 ML Syringe IV (11:44)
--- NOTE | 2022-10-12 13:44 | PCM.TXEXTCAR ---
Diet Diet Order/Speech Therapy: 10/09/22 07:02 Diet: Regular - General Food consistency:: Soft & Bite Sized Liquid Consistency:: Regular/Thin Is pt able to select menu?: Yes Routine Orders/Code Status Routine Lab Work: CBC (in 5 days) Code Status: Full Code Wound(s) LEFT MIDDLE FINGER\: Wound Type: surgical incision s/p I&D Dressing Change: Adaptic generalized BUE and BLE: Wound Type: Abrasion Dressing Change: do not change dressing-ortho will change at next appointment Therapies Weight Bearing: Full weight bearing Physical Therapy: Eval and Treat Occupational Therapy: Eval and Treat Problem/Diagnosis (1) Cellulitis of finger of left hand: Status: Acute Code(s): L03.012 - Cellulitis of left finger (2) Suppurative tenosynovitis of flexor tendon of left hand: Status: Acute Code(s): M65.142 - Other infective (teno)synovitis, left hand Comment: oxacillin sensitive Staph (3) Dementia: Status: Chronic Code(s): F03.90 - Unspecified dementia, unspecified severity, without behavioral disturbance, psychotic disturbance, mood disturbance, and anxiety (4) Hypertension: Status: Chronic Code(s): I10 - Essential (primary) hypertension (5) Hyperlipidemia: Status: Chronic Code(s): E78.5 - Hyperlipidemia, unspecified (6) Blood in stool: Status: Chronic Code(s): K92.1 - Melena Comment: Patient is scheduled to undergo endoscopy on October 23, 2022 at 10:[address] Feliz (7) Anemia: Status: Acute Code(s): D64.9 - Anemia, unspecified Comment: Patient has a recent history of red rectal bleeding, she is due to go undergo endoscopy on 10/23/2022 Allergies/Procedures Done in Hospital Allergies hydrochlorothiazide Allergy (Verified 10/08/22 15:21) Unknown memantine [From Namenda] Allergy (Verified 10/08/22 15:21) PT UNSURE OF REACTION nitrofurantoin [Nitrofurantoin] Allergy (Verified 10/08/22 15:21) Unknown NSAIDS (Non-Steroidal Anti-Inflamma Allergy (Verified 10/08/22 15:21) Unknown oxaprozin [From Daypro] Allergy (Verified 10/08/22 15:21) Unknown rofecoxib [From Vioxx] Allergy (Verified 10/08/22 15:21) Unknown Sulfa (Sulfonamide Antibiotics) Allergy (Verified 10/08/22 15:21) Hives Procedures: - (Left middle finger irrigation and debridement) Type of Care/Length of Stay Estimated LOS: Convalescent Care Less Than 30 days Type of Care Needed: Skilled Rehab Potential: Good Prognosis: Good Additional Orders/Day of Discharge H&P will serve as current which was dated: 10/08/22 Day of Discharge: 10/12/22 Dietary and Speech Recommendations Dietitian Recommendations/Changes: Continue diet as ordered Monitor need for ONS pending po intake/wt trends. Discharge Plan Admission Admit Date/Time: 10/08/22 18:19 Primary Reason for Your Visit: cellulitis middle finger of left hand Attending Provider: Flavio Campbell Primary Care Provider: Flavio Soriano Consulting Providers: Holden Urbano ; Gabe Sotelo ; James Thompson Instructions Additional Instructions / Restrictions: Make appoitnment for the patient to see Doctor Sundeep this or Wednesday Discharge Orders/Prescriptions Prescriptions: New atorvastatin 10 mg Tablet 10 mg PO QHS Qty: 0 0RF acetaminophen 500 mg Tablet 1,000 mg PO Q8H PRN PRNQty: 0 0RF menthol-zinc oxide [Calmoseptine] 0.44-20.6 % Ointment 1 applic topical BID Qty: 0 0RF Protocol: *Topical Application Instructions APPLICATION INSTRUCTIONS: buttocks nystatin [Nyamyc] 100,000 unit/gram Powder 1 applic topical BID Qty: 0 0RF Protocol: *Topical Application Instructions APPLICATION INSTRUCTIONS: groin and breasts Continued divalproex 125 mg capsule, delayed rel sprinkle 125 mg PO TID hydroxyzine pamoate 25 mg capsule 25 mg PO Q6H PRN PRN (Reason: Anxiety) melatonin 3 mg capsule 3 mg PO HS mirtazapine 7.5 mg tablet 7.5 mg PO QHS trazodone 50 mg tablet 50 mg PO QHS aspirin 81 MG tablet,chewable 81 mg PO DAILY@0800 lisinopril 40 MG tablet 20 mg PO DAILY metoprolol succinate 100 mg Tablet Extended Release 24 Hr 100 mg PO DAILY olanzapine 5 mg Tablet 5 mg PO BID amoxicillin-pot clavulanate 875-125 mg Tablet 1 tab PO BID Qty: 1 0RF Rx Instructions: continue for ten days Discontinued acetaminophen 500 mg capsule 1,000 mg PO BID atorvastatin 80 mg Tablet 10 mg PO QHS Referrals / Follow Up: Flavio Soriano MD [Primary Care Provider] - Holden Urbano MD [Med Staff - Active Staff] - See Referral Note (This or Wednesday-make appointment) Disposition Disposition (needs filled in before D/C Order can be placed): Residential Facility (1) Hypertension Qualifiers: Hypertension type: essential hypertension Qualified Code(s): I10 - Essential (primary) hypertension
--- NOTE | 2022-10-12 13:53 | CASEMGMT ---
Addendum entered by Becky Eli 10/12/22 14:26: MAHI discussed further with pt Clive, and feel that Clive is confused about discharge plan. MAHI explained [facility] is not permanently accepting pt for LTC. Clive not understanding but when MAHI asked if a call to pt and [facility] adult daughters would be ok Clive refused. MAHI explained again that [facility] would like pt to come to facility for a few weeks to be assessed before they will accept for LTC. Clive appeared to be receptive to this conversation. Clive was able to repeat back MAHI informed would call [facility] to update on the plan. Clive voiced appreciation. MHAI called [facility], explained situation to Dahiana. Dahiana stated would be best to talk with nurse but nurse not in at present moment. Dahiana took phone number and will have nurse call back later today. Addendum entered by Becky Eli 10/12/22 13:59: Pt stated would call [facility] and update that pt will not be returning. MAHI provided Clive with [facility] phone number. Original Note: Social Work D/C marketing assistant retail division informed MAHI that pt has been accepted at [facility]. MD Campbell updated and shared intent to d/c pt today. MAHI called pt , Clive, to inform pt will be discharging today. Clive voiced understanding. PLAN: [facility] YOSELIN Crespo
[2022-10-12 14:08] LABS: Iron 50 ug/dL (50-170); Iron Binding Capacity,Total 224 ug/dL (250-450); PERCENT IRON SATURATION 22.3 % (15.0-55.0)
--- NOTE | 2022-10-12 14:53 | DS.PCM_ITS ---
Providers Date of Admission: 10/08/22 Date of Discharge: 10/12/22 Primary Care Physician: Dr. Flavio Soriano MD Consultations 10/08/22 19:29 Consult: Onc/Wound/tandem operator Routine Comment: Consult: Orthopedics Routine Consulting Provider: Holden Urbano Reason for Consult: left ring finger cellulitis and abscess EMERGENT Consult: No MD Notified: Yes Date Notified: 10/08/22 Time Notified: 18:23 Method of Notification: Verbal Reason For Visit: LEFT RING FINGER CELLULITIS / ABSCESS Diagnosis Discharge Diagnosis (1) Cellulitis of finger of left hand: Status: Acute Code(s): L03.012 - Cellulitis of left finger (2) Suppurative tenosynovitis of flexor tendon of left hand: Status: Acute Code(s): M65.142 - Other infective (teno)synovitis, left hand (3) Dementia: Status: Chronic Code(s): F03.90 - Unspecified dementia, unspecified severity, without behavioral disturbance, psychotic disturbance, mood disturbance, and anxiety (4) Hypertension: Status: Chronic Code(s): I10 - Essential (primary) hypertension Qualifiers: Hypertension type: essential hypertension Qualified Code(s): I10 - Essential (primary) hypertension (5) Hyperlipidemia: Status: Chronic Code(s): E78.5 - Hyperlipidemia, unspecified (6) Blood in stool: Status: Chronic Code(s): K92.1 - Melena (7) Anemia: Status: Acute Code(s): D64.9 - Anemia, unspecified Plan 1. Cellulitis of the left hand with suppurative tenosynovitis of the flexor tendon-with Staph aureus(Oxacillin sensitive) #2 dementia #3 essential hypertension #4 hyperlipidemia #5 chronic depression #6 chronic anemia with Hemoccult positive stool Medications at Discharge Home Medications aspirin 81 mg chewable tablet 81 mg PO DAILY@0800 heart 04/07/13 lisinopril 40 mg tablet 20 mg PO DAILY blood pressure 04/07/13 metoprolol succinate 100 mg tablet,extended release 24 hr 100 mg PO DAILY HTN 01/14/22 divalproex 125 mg capsule,delayed release sprinkle 125 mg PO TID memory 10/01/22 hydroxyzine pamoate 25 mg capsule 25 mg PO Q6H PRN PRN Anxiety 10/01/22 melatonin 3 mg capsule 3 mg PO HS sleep 10/01/22 mirtazapine 7.5 mg tablet 7.5 mg PO QHS sleep 10/01/22 trazodone 50 mg tablet 50 mg PO QHS sleep 10/01/22 olanzapine 5 mg tablet 5 mg PO BID anxiety 10/08/22 acetaminophen 500 mg tablet 1,000 mg PO Q8H PRN PRN #0 tabs 10/12/22 amoxicillin 875 mg-potassium clavulanate 125 mg tablet 1 tab PO BID antibiotic #1 TAB 10/12/22 atorvastatin 10 mg tablet 10 mg PO QHS #0 tabs 10/12/22 menthol 0.44 %-zinc oxide 20.6 % topical ointment (Calmoseptine) 1 applic topical BID #0 grams 10/12/22 nystatin 100,000 unit/gram topical powder (Nyamyc) 1 applic topical BID #0 grams 10/12/22 gabapentin 100 mg capsule 100 mg PO DAILY 10/16/22 lactulose 20 gram/30 mL oral solution 20 g PO BID 10/16/22 lorazepam 0.5 mg tablet 0.5 mg PO DAILY 10/16/22 Hospital Course Operations - (Left middle finger irrigation debridement-10/08/2022) Procedures None Summary of Care Provided Minutes Spent on Discharge: 32 Hospital Course: This 86-year-old white female was seen in the emergency room at [facility] with complaints of redness and increased pain to her left middle finger. Patient has a history of dementia and is cared for by her . Work-up in the emergency room included an examination of her left hand which showed erythema and soft tissue swelling to the dorsum of her left left hand and left middle finger. Three-view x-ray of the left hand shows significant soft tissue swelling of the long finger but no definitive subcutaneous air. Arthritic changes of the hand were noted. Patient's white blood cell count was normal, patient was anemic with a hemoglobin of 9.6. Patient was admitted to [place] [id number] for cellulitis of the middle finger of the left hand, she was seen in consultation by orthopedic surgery and was placed on IV antibiotics. Orthopedic surgery took the patient to surgery for drainage of the left middle finger. Patient was seen by PT and OT, it was felt that the patient would benefit from short-term skilled care at a facility. Patient's agreed. On 10/17/2022, patient was seen and examined: On examination she appeared in good health and spirits, she does not appear to be in any distress. She does exhibit moderate confusion. Vital signs as documented. Skin warm and dry and without overt rashes. Neck without JVD, thyroid appears normal, trachea is midline, neck is supple. Lungs clear, normal air movement was noted. Heart exam notable for regular rhythm, normal sounds and absence of murmurs, rubs or gallops. Abdomen unremarkable and without evidence of organomegaly, masses, or abdominal aortic enlargement, bowel sounds are present in all 4 quadrants, no abdominal tenderness was noted. Extremities nonedematous, no cyanosis was noted, no clubbing was noted. Neuro: Cranial nerves II through XII are grossly intact, no focal motor deficits were noted, sensation to light touch and pinprick is intact, motor exam 5/5 throughout. Psych: Patient is alert, she has moderate confusion Patient was transferred to a care home facility on 10/17/2022 in stable condition. Weight / BMI Weight Weight: 73.709 kg Body Mass Index (BMI) 27.0 ABG / Lab / Microbiology Data Result Diagrams: 10/12/22 05:20 10/12/22 05:20 Laboratory: Laboratory Results - last 24 hr 10/12/22 05:20: WBC 6.5, RBC 2.84 L, Hgb 8.4 L, Hct 27.0 L, MCV 95.1, MCH 29.6, MCHC 31.1 L, RDW Std Deviation 52.5 H, RDW Coeff of Jitendra 15.1 H, Plt Count 262, MPV 10.1, Immature Gran % (Auto) 2.500 H, Neut % (Auto) 57.8, Lymph % (Auto) 26.5, [place] % (Auto) 7.9, Eos % (Auto) 4.5, Baso % (Auto) 0.8, Absolute Neuts (auto) 3.8, Absolute Lymphs (auto) 1.72, Nucleated RBC % 0 10/12/22 05:20: Sodium 143, Potassium 4.1, Chloride 111 H, Carbon Dioxide 24.0, Anion Gap 8, BUN 16, Creatinine 0.95, Estim Creat Clear Calc 39.67, Est GFR ( MDRD) Af Amer 72, Est GFR (MDRD) Non-Af 60, BUN/Creatinine Ratio 16.9, Glucose 102, Calcium 8.4 L 10/12/22 05:20: Iron 50, TIBC 224 L, Iron Saturation 22.3 Microbiology: Microbiology 10/12/22 14:15 Nasal Secretion SARS-CoV-2 Antigen (Rapid) - Final 10/08/22 Unknown Wound - Finger Gram Stain - Final 10/08/22 Unknown Wound - Finger Wound Culture - Final Staphylococcus aureus 10/08/22 Unknown Wound - Finger Anaerobic Culture - Preliminary 10/08/22 16:50 Blood Culture (Wb) - Anticubital Left Blood Culture - Prel iminary No growth in 48 hours. 10/08/22 16:45 Blood Culture (Wb) - Left Wrist Blood Culture - Preliminary No growth in 48 hours. 10/10/22 12:19 Stool C. difficile DNA Amplification - Final Meaningful Use Info Meaningful Use Diagnoses (Choose all that apply): None applicable Discharge Plan Admission Admit Date/Time: 10/08/22 18:19 Primary Reason for Your Visit: cellulitis middle finger of left hand Attending Provider: Flavio Campbell Primary Care Provider: Flavio Soriano Consulting Providers: Holden Urbano ; Gabe Sotelo ; James Thompson Instructions Additional Instructions / Restrictions: Make appoitnment for the patient to see Doctor Sundeep this or Wednesday Discharge Orders/Prescriptions Prescriptions: New atorvastatin 10 mg Tablet 10 mg PO QHS Qty: 0 0RF acetaminophen 500 mg Tablet 1,000 mg PO Q8H PRN PRNQty: 0 0RF menthol-zinc oxide [Calmoseptine] 0.44-20.6 % Ointment 1 applic topical BID Qty: 0 0RF Protocol: *Topical Application Instructions APPLICATION INSTRUCTIONS: buttocks nystatin [Nyamyc] 100,000 unit/gram Powder 1 applic topical BID Qty: 0 0RF Protocol: *Topical Application Instructions APPLICATION INSTRUCTIONS: groin and breasts Continued divalproex 125 mg capsule, delayed rel sprinkle 125 mg PO TID hydroxyzine pamoate 25 mg capsule 25 mg PO Q6H PRN PRN (Reason: Anxiety) melatonin 3 mg capsule 3 mg PO HS mirtazapine 7.5 mg tablet 7.5 mg PO QHS trazodone 50 mg tablet 50 mg PO QHS aspirin 81 MG tablet,chewable 81 mg PO DAILY@0800 lisinopril 40 MG tablet 20 mg PO DAILY metoprolol succinate 100 mg Tablet Extended Release 24 Hr 100 mg PO DAILY olanzapine 5 mg Tablet 5 mg PO BID amoxicillin-pot clavulanate 875-125 mg Tablet 1 tab PO BID Qty: 1 0RF Rx Instructions: continue for ten days Discontinued acetaminophen 500 mg capsule 1,000 mg PO BID atorvastatin 80 mg Tablet 10 mg PO QHS No Action lorazepam 0.5 mg tablet 0.5 mg PO DAILY gabapentin 100 mg capsule 100 mg PO DAILY lactulose 20 gram/30 mL solution 20 g PO BID Referrals / Follow Up: Flavio Soriano MD [Primary Care Provider] - Holden Urbano MD [Med Staff - Active Staff] - See Referral Note (This or Wednesday-make appointment) Disposition Disposition (needs filled in before D/C Order can be placed): [facility] Facility Charges/Coding Visit Charges Inpatient E&M: 80664 Disch Hosp >30min
--- NOTE | 2022-10-12 15:31 | CASEMGMT ---
Addendum entered by Becky Eli 10/12/22 15:53: MAHI sent discharge orders and discharge summary to [facility] via Fax and noted that pt going to [facility] for skilled rehab for short term. MAHI explained on fax cover sheet that [facility] will evaluate pt for LTC while pt is at their facility. SW provided phone number for [facility] to call back if necessary. Original Note: Social Work? ?? SW met with pt and informed of discharge today. voiced understanding. 7000 form completed in [employer] system and included with discharge orders.? MAHI set up cot transport through [facility] for 5:00pm. MAHI sent all discharge orders to [facility] via [facility] and notified of transport time. MAHI also notified pt nurse of transport time. MAHI made copies of discharge orders to place on pt chart and put originals in envelope to go with pt.? Disposition: [facility], skilled, convalescent level of care? YOSELIN Crespo?
[2022-10-12 16:54] VITALS: BP 140/75; PULSE 77; RESP 18; TEMP 36.6; O2SAT 98
== END 2022-10-12 17:15 | disposition skilled nursing facility (03) | DRG 513 ==
LOC: ED 17:35 → SDC 18:11 → AC 18:12 → SDC 18:53 → MS3 19:04
PROVIDERS: Internal Medicine; Nurse Practitioner; Admitting Provider Orthopaedic Surgery Sports Medicine; Emergency Provider Emergency Medicine; PCP Family Medicine; Referring Provider Orthopaedic Surgery Sports Medicine; Visit Provider Internal Medicine
PROC: 0JBK0ZZ Excision of Left Hand Subcutaneous Tissue and Fascia, Open Approach (ICD-10-PCS; CPT 64721; principal; 2022-10-08 19:00)
DX: M65.142 Other infective (teno)synovitis, left hand (principal); L02.414 Cutaneous abscess of left upper limb; K92.1 Melena; L03.114 Cellulitis of left upper limb; F03.90 Unspecified dementia, unspecified severity, without behavioral disturbance, psychotic disturbance, mood disturbance, and anxiety; D64.9 Anemia, unspecified; E78.5 Hyperlipidemia, unspecified; S61.213A Laceration without foreign body of left middle finger without damage to nail, initial encounter; I10 Essential (primary) hypertension; M19.049 Primary osteoarthritis, unspecified hand; M65.842 Other synovitis and tenosynovitis, left hand; F32.A Depression, unspecified; L03.012 Cellulitis of left finger; Z87.891 Personal history of nicotine dependence; Z79.82 Long term (current) use of aspirin; Z79.1 Long term (current) use of non-steroidal anti-inflammatories (NSAID); Z79.2 Long term (current) use of antibiotics; R53.81 Other malaise
CPT/HCPCS: 36415; 73130; 80048; 80202; 83540; 83550; 83605; 83735; 84100; 85025; 85652; 86140; 87040; 87070; 87075; 87077; 87186; 87205; 87426; 87493; 97116; 97162; 97166; 97530; 97535; 99284; J7040; J7050; A4216; J0295

== ENCOUNTER → 2022-11-12 | Outpatient (REF) | payer MEDICARE, BC, SELFPAY | LOC: OLS.WHLCAR 05:00 | PROVIDERS: PCP Family Medicine; Visit Provider Internal Medicine | DX: D64.9 Anemia, unspecified (principal); M65.842 Other synovitis and tenosynovitis, left hand; R41.0 Disorientation, unspecified; F32.A Depression, unspecified; F03.A11 Unspecified dementia, mild, with agitation; Z74.1 Need for assistance with personal care | CPT/HCPCS: 36415; 82140 ==

== ENCOUNTER → 2022-11-19 | Outpatient (REF) | payer MEDICARE, BC, SELFPAY | LOC: OLS.WHLCAR 05:00 | PROVIDERS: PCP Family Medicine; Visit Provider Internal Medicine | DX: D64.9 Anemia, unspecified (principal); M65.842 Other synovitis and tenosynovitis, left hand; R41.0 Disorientation, unspecified; F32.A Depression, unspecified; F03.A11 Unspecified dementia, mild, with agitation; Z74.1 Need for assistance with personal care | CPT/HCPCS: 36415; 82140 ==

== ENCOUNTER → 2022-11-21 | Outpatient (REF) | payer MEDICARE, BC, SELFPAY ==
[2022-11-23 08:35] LABS: Bacteria 0 SEEN /hpf (None Seen); Red Blood Cells-Urine 0 SEEN /hpf (0-5); Squamous Epithelial Cells - UA 0 SEEN /hpf (5-10)
[2022-11-23 09:36] LABS: Color, Urine Yellow (Yellow); Glucose, Dipstick Normal (Normal); Ketone-Dipstick Negative (Negative); Leukocyte Esterase-Dipstick 500 /ul (Negative); Nitrite-Dipstick Positive (Negative); Occult Blood-Urine 10 /ul (Negative); Protein-Dipstick 500 mg/dl (Negative); Specific Gravity, Urine 1.015 (1.002-1.030); Urine Bilirubin Dipstick Negative (Negative); Urine Clarity Cloudy (Clear); Urine Urobilinogen Normal (Normal)
[2022-11-23 09:43] LABS: Mucous, Urine 4+ /hpf (<or=2+); White Blood Cells >100 SEEN /hpf (0-5)
== END ==
LOC: OLS.WHLCAR 14:30
PROVIDERS: PCP Family Medicine; Visit Provider Internal Medicine
DX: N39.0 Urinary tract infection, site not specified (principal)
CPT/HCPCS: 81001; 87077; 87086; 87088; 87186

== ENCOUNTER → 2022-11-26 | Outpatient (REF) | payer MEDICARE, BC, SELFPAY | LOC: OLS.WHLCAR 05:00 | PROVIDERS: PCP Family Medicine; Visit Provider Internal Medicine | DX: D64.9 Anemia, unspecified (principal); M65.842 Other synovitis and tenosynovitis, left hand; R41.0 Disorientation, unspecified; F32.A Depression, unspecified; F03.A11 Unspecified dementia, mild, with agitation; Z74.1 Need for assistance with personal care | CPT/HCPCS: 36415; 82140 ==

== ENCOUNTER → 2022-12-03 | Outpatient (REF) | payer MEDICARE, BC, SELFPAY | LOC: OLS.WHLCAR 08:40 | PROVIDERS: PCP Family Medicine; Visit Provider Internal Medicine | DX: D64.9 Anemia, unspecified (principal) | CPT/HCPCS: 36415; 82140 ==

== ENCOUNTER → 2022-12-10 | Outpatient (REF) | payer MEDICARE, BC, SELFPAY | LOC: OLS.WHLCAR 05:00 | PROVIDERS: PCP Family Medicine; Visit Provider Internal Medicine | DX: D64.9 Anemia, unspecified (principal) | CPT/HCPCS: 36415; 82140 ==

== ENCOUNTER → 2022-12-17 | Outpatient (REF) | payer MEDICARE, BC, SELFPAY | LOC: OLS.WHLCAR 05:00 | PROVIDERS: PCP Family Medicine; Visit Provider Internal Medicine | DX: D64.9 Anemia, unspecified (principal) | CPT/HCPCS: 36415; 82140 ==

== ENCOUNTER → 2022-12-24 | Outpatient (REF) | payer MEDICARE, BC, SELFPAY | LOC: OLS.WHLCAR 05:00 | PROVIDERS: PCP Family Medicine; Visit Provider Internal Medicine | DX: D64.9 Anemia, unspecified (principal); M65.842 Other synovitis and tenosynovitis, left hand; R41.0 Disorientation, unspecified; F32.A Depression, unspecified; F03.A11 Unspecified dementia, mild, with agitation | CPT/HCPCS: 36415; 82140 ==

== ENCOUNTER → 2022-12-31 | Outpatient (REF) | payer MEDICARE, BC, SELFPAY | LOC: OLS.WHLCAR 08:30 | PROVIDERS: PCP Family Medicine; Visit Provider Internal Medicine | DX: D64.9 Anemia, unspecified (principal); M65.842 Other synovitis and tenosynovitis, left hand; R41.0 Disorientation, unspecified; F32.A Depression, unspecified | CPT/HCPCS: 36415; 82140 ==

== ENCOUNTER → 2023-01-12 | Outpatient (REF) | payer MEDICARE, BC, SELFPAY ==
[2023-01-12 10:22] LABS: Color, Urine Yellow (Yellow); Glucose, Dipstick Normal (Normal); Ketone-Dipstick Negative (Negative); Leukocyte Esterase-Dipstick Negative /ul (Negative); Nitrite-Dipstick Negative (Negative); Occult Blood-Urine 50 /ul (Negative); Protein-Dipstick 15 mg/dl (Negative); Urine Bilirubin Dipstick Negative (Negative); Urine Clarity Sl. Cloudy (Clear); Urine Urobilinogen Normal (Normal)
[2023-01-12 10:25] LABS: Absolute Lymphocyte Count 2.34 X10^3/uL (0.83-4.51); Absolute Neutrophil Count 5.6 X10^3/uL (2.0-7.7); Basophil# 0.05 X10^3/uL; Basophil% 0.5 % (0-1); Eosinophil# 0.28 X10^3/uL; Eosinophils% 3.1 % (0-5); Lymphocyte # 2.34 X10^3/ul (0.83-4.51); Lymphocyte % 25.5 % (19-41); Mean Corp Hgb Conc 30.8 g/dL (32-36); Mean Corpuscular Hgb 29.5 pg (27.0-32.0); Mean Corpuscular Volume 95.8 fL (81-99); Mean Platelet Vol. 10.3 fl (6.2-12.0); Monocyte# 0.73 X10^3/uL; NRBC Flagged by Analyzer 0 % (0-5); Neutrophil # 5.62 X10^3/uL (2.7-7.7); Neutrophil % 61.4 % (47-70); Platelet Count 277 K/mm3 (150-450); RBC Distribution Width CV 14.6 % (11.6-14.6); RBC Distribution Width SD 50.7 fl (35.1-43.9); Red Blood Count 4.07 M/mm3 (4.2-5.4); White Blood Count 9.2 K/mm3 (4.4-11.0)
[2023-01-12 10:44] LABS: Anion Gap 6 (5-15); BUN 21 mg/dL (7-18); BUN/Creat Ratio 24.3 RATIO (10-20); Calcium,Total 9.3 mg/dL (8.5-10.1); Chloride 106 mmol/L (98-107); Creatinine, Serum 0.86 mg/dL (0.55-1.02); EST Glomerular Filtration Rate 66 mL/min (>60); Est Glom Filt Rate - Afr Amer 80 mL/min (>60); Glucose 86 mg/dL (74-106); Potassium 4.1 mmol/L (3.5-5.1); Sodium Level 139 mmol/L (136-145)
== END ==
LOC: OLS.WHLCAR 05:00
PROVIDERS: PCP Family Medicine; Visit Provider Internal Medicine
DX: R53.83 Other fatigue (principal); M65.842 Other synovitis and tenosynovitis, left hand; B37.9 Candidiasis, unspecified; N39.0 Urinary tract infection, site not specified; K76.0 Fatty (change of) liver, not elsewhere classified
CPT/HCPCS: 36415; 80048; 81002; 85025; 87077; 87086; 87088; 87186

== ENCOUNTER → 2023-01-13 | Outpatient (REF) | payer MEDICARE, BC, SELFPAY ==
[2023-01-13 08:41] LABS: Valproic Acid (Depakene) Level 5 ug/mL (50-100)
[2023-01-13 08:43] LABS: AST(SGOT) 18 U/L (15-37); Alanine Aminotransfer ALT/SGPT 18 U/L (13-56); Albumin, Serum 2.8 g/dL (3.2-5.0); Alkaline Phosphatase 59 U/L (45-117); Bilirubin, Direct 0.05 mg/dL (0.00-0.30); Cholesterol 148 mg/dL (200); Globulin 3.6 g/dL (2.2-4.2); High Density Lipoprotein 55 mg/dL; Protein, Total 6.4 g/dL (6.4-8.2); Triglycerides 230 mg/dL; Very Low Density Lipoprotein 46 mg/dL (5-40)
== END ==
LOC: OLS.WHLCAR 05:00
PROVIDERS: PCP Family Medicine; Visit Provider Internal Medicine
DX: E78.5 Hyperlipidemia, unspecified (principal)
CPT/HCPCS: 36415; 80061; 80076; 80164

== ENCOUNTER → 2023-02-03 | Outpatient (REF) | payer MEDICARE, BC, SELFPAY ==
[2023-02-03 07:34] LABS: Absolute Neutrophil Count 5.9 X10^3/uL (2.0-7.7); Basophil# 0.07 X10^3/uL; Basophil% 0.7 % (0-1); Eosinophil# 0.46 X10^3/uL; Eosinophils% 4.5 % (0-5); Hematocrit 34.9 % (37-47); Lymphocyte % 28.4 % (19-41); Mean Corp Hgb Conc 31.5 g/dL (32-36); Mean Corpuscular Hgb 29.3 pg (27.0-32.0); Mean Corpuscular Volume 92.8 fL (81-99); Mean Platelet Vol. 10.9 fl (6.2-12.0); Monocyte# 0.73 X10^3/uL; Monocyte% 7.1 % (0-10); NRBC Flagged by Analyzer 0 % (0-5); Neutrophil # 5.92 X10^3/uL (2.7-7.7); Platelet Count 271 K/mm3 (150-450); RBC Distribution Width CV 15.1 % (11.6-14.6); RBC Distribution Width SD 51.8 fl (35.1-43.9); Red Blood Count 3.76 M/mm3 (4.2-5.4); White Blood Count 10.2 K/mm3 (4.4-11.0)
[2023-02-03 08:00] LABS: Valproic Acid (Depakene) Level 23 ug/mL (50-100)
[2023-02-03 08:05] LABS: ALB/GLOB Ratio 0.8 RATIO (0.9-2.4); AST(SGOT) 10 U/L (15-37); Alanine Aminotransfer ALT/SGPT 18 U/L (13-56); Albumin, Serum 2.9 g/dL (3.2-5.0); Alkaline Phosphatase 63 U/L (45-117); Anion Gap 6 (5-15); BUN 29 mg/dL (7-18); BUN/Creat Ratio 37.3 RATIO (10-20); Calcium,Total 8.9 mg/dL (8.5-10.1); Chloride 113 mmol/L (98-107); Creatinine, Serum 0.78 mg/dL (0.55-1.02); EST Glomerular Filtration Rate 75 mL/min (>60); Est Glom Filt Rate - Afr Amer 91 mL/min (>60); Globulin 3.7 g/dL (2.2-4.2); Glucose 90 mg/dL (74-106); Potassium 4.1 mmol/L (3.5-5.1); Protein, Total 6.6 g/dL (6.4-8.2); Sodium Level 143 mmol/L (136-145)
== END ==
LOC: OLS.WHLCAR 05:00
PROVIDERS: PCP Family Medicine; Visit Provider Internal Medicine
DX: F03.A11 Unspecified dementia, mild, with agitation (principal); M65.842 Other synovitis and tenosynovitis, left hand; R53.83 Other fatigue; B37.9 Candidiasis, unspecified; N39.0 Urinary tract infection, site not specified; K76.0 Fatty (change of) liver, not elsewhere classified; Z79.899 Other long term (current) drug therapy
CPT/HCPCS: 36415; 80053; 80164; 82140; 85025

== ENCOUNTER → 2023-02-05 | Outpatient (REF) | payer MEDICARE, BC, SELFPAY ==
[2023-02-05 10:52] LABS: Absolute Lymphocyte Count 2.21 X10^3/uL (0.83-4.51); Absolute Neutrophil Count 4.2 X10^3/uL (2.0-7.7); Basophil# 0.06 X10^3/uL; Basophil% 0.8 % (0-1); Eosinophil# 0.41 X10^3/uL; Eosinophils% 5.4 % (0-5); Hematocrit 34.6 % (37-47); Hemoglobin 10.8 g/dL (12.0-15.0); Lymphocyte # 2.21 X10^3/ul (0.83-4.51); Lymphocyte % 28.9 % (19-41); Mean Corp Hgb Conc 31.2 g/dL (32-36); Mean Corpuscular Hgb 29.3 pg (27.0-32.0); Mean Platelet Vol. 11.3 fl (6.2-12.0); Monocyte# 0.53 X10^3/uL; Monocyte% 6.9 % (0-10); NRBC Flagged by Analyzer 0 % (0-5); Neutrophil # 4.22 X10^3/uL (2.7-7.7); Neutrophil % 55.3 % (47-70); Platelet Count 242 K/mm3 (150-450); RBC Distribution Width SD 52.5 fl (35.1-43.9); Red Blood Count 3.68 M/mm3 (4.2-5.4); White Blood Count 7.6 K/mm3 (4.4-11.0)
[2023-02-05 11:28] LABS: Anion Gap 6 (5-15); BUN 25 mg/dL (7-18); BUN/Creat Ratio 35.7 RATIO (10-20); Calcium,Total 8.8 mg/dL (8.5-10.1); Chloride 110 mmol/L (98-107); EST Glomerular Filtration Rate 84 mL/min (>60); Est Glom Filt Rate - Afr Amer 102 mL/min (>60); Glucose 82 mg/dL (74-106); Potassium 4.2 mmol/L (3.5-5.1); Sodium Level 140 mmol/L (136-145)
== END ==
LOC: OLS.WHLCAR 05:00
PROVIDERS: PCP Family Medicine; Visit Provider Nurse Practitioner Adult Health
DX: R53.83 Other fatigue (principal); M65.842 Other synovitis and tenosynovitis, left hand; N39.0 Urinary tract infection, site not specified
CPT/HCPCS: 36415; 80048; 85025

== ENCOUNTER → 2023-02-11 | Outpatient (REF) | payer MEDICARE, BC, SELFPAY | LOC: OLS.WHLCAR 05:00 | PROVIDERS: PCP Family Medicine; Visit Provider Internal Medicine | DX: D64.9 Anemia, unspecified (principal); M65.842 Other synovitis and tenosynovitis, left hand; B37.9 Candidiasis, unspecified; N39.0 Urinary tract infection, site not specified; K76.0 Fatty (change of) liver, not elsewhere classified; Z79.899 Other long term (current) drug therapy | CPT/HCPCS: 36415; 82140 ==

== ENCOUNTER → 2023-03-08 | Outpatient (REF) | payer MEDICARE, BC, SELFPAY ==
[2023-03-08 09:20] LABS: Absolute Lymphocyte Count 2.25 X10^3/uL (0.83-4.51); Absolute Neutrophil Count 2.8 X10^3/uL (2.0-7.7); Basophil# 0.05 X10^3/uL; Basophil% 0.8 % (0-1); Eosinophil# 0.38 X10^3/uL; Eosinophils% 6.4 % (0-5); Hematocrit 34.2 % (37-47); Hemoglobin 10.6 g/dL (12.0-15.0); Lymphocyte # 2.25 X10^3/ul (0.83-4.51); Lymphocyte % 37.7 % (19-41); Mean Corpuscular Volume 96.9 fL (81-99); Mean Platelet Vol. 10.8 fl (6.2-12.0); Monocyte# 0.47 X10^3/uL; Monocyte% 7.9 % (0-10); NRBC Flagged by Analyzer 0 % (0-5); Neutrophil # 2.75 X10^3/uL (2.7-7.7); Platelet Count 299 K/mm3 (150-450); RBC Distribution Width CV 16.8 % (11.6-14.6); RBC Distribution Width SD 60.2 fl (35.1-43.9); Red Blood Count 3.53 M/mm3 (4.2-5.4)
[2023-03-08 09:29] LABS: Anion Gap 6 (5-15); BUN 23 mg/dL (7-18); BUN/Creat Ratio 32.3 RATIO (10-20); Chloride 110 mmol/L (98-107); Creatinine, Serum 0.71 mg/dL (0.55-1.02); EST Glomerular Filtration Rate 83 mL/min (>60); Est Glom Filt Rate - Afr Amer 100 mL/min (>60); Glucose 94 mg/dL (74-106); Potassium 4.1 mmol/L (3.5-5.1); Sodium Level 141 mmol/L (136-145)
== END ==
LOC: OLS.WHLCAR 05:00
PROVIDERS: PCP Family Medicine; Visit Provider Nurse Practitioner Adult Health
DX: D64.9 Anemia, unspecified (principal); R53.83 Other fatigue; M65.842 Other synovitis and tenosynovitis, left hand; N39.0 Urinary tract infection, site not specified; K76.0 Fatty (change of) liver, not elsewhere classified
CPT/HCPCS: 36415; 80048; 82140; 85025

== ENCOUNTER → 2023-04-07 | Outpatient (REF) | payer MEDICARE, BC, SELFPAY ==
[2023-04-07 08:49] LABS: Absolute Lymphocyte Count 2.16 X10^3/uL (0.83-4.51); Absolute Neutrophil Count 4.2 X10^3/uL (2.0-7.7); Basophil# 0.05 X10^3/uL; Basophil% 0.7 % (0-1); Eosinophils% 4.1 % (0-5); Hematocrit 40.9 % (37-47); Hemoglobin 12.5 g/dL (12.0-15.0); Lymphocyte # 2.16 X10^3/ul (0.83-4.51); Lymphocyte % 29.4 % (19-41); Mean Corp Hgb Conc 30.6 g/dL (32-36); Mean Corpuscular Hgb 30.6 pg (27.0-32.0); Mean Platelet Vol. 12.6 fl (6.2-12.0); Monocyte# 0.54 X10^3/uL; Monocyte% 7.3 % (0-10); NRBC Flagged by Analyzer 0 % (0-5); Neutrophil # 4.23 X10^3/uL (2.7-7.7); Neutrophil % 57.5 % (47-70); Platelet Count 215 K/mm3 (150-450); RBC Distribution Width SD 56.1 fl (35.1-43.9); Red Blood Count 4.09 M/mm3 (4.2-5.4); White Blood Count 7.4 K/mm3 (4.4-11.0)
[2023-04-07 09:14] LABS: Anion Gap 6 (5-15); BUN 48 mg/dL (7-18); BUN/Creat Ratio 48.8 RATIO (10-20); Calcium,Total 9.3 mg/dL (8.5-10.1); Chloride 124 mmol/L (98-107); Creatinine, Serum 0.98 mg/dL (0.55-1.02); EST Glomerular Filtration Rate 57 mL/min (>60); Est Glom Filt Rate - Afr Amer 69 mL/min (>60); Glucose 111 mg/dL (74-106); Potassium 4.2 mmol/L (3.5-5.1); Sodium Level 151 mmol/L (136-145)
== END ==
LOC: OLS.WHLCAR 05:00
PROVIDERS: PCP Family Medicine; Visit Provider Internal Medicine
DX: R53.83 Other fatigue (principal); M65.842 Other synovitis and tenosynovitis, left hand; B37.9 Candidiasis, unspecified; N39.0 Urinary tract infection, site not specified; K76.0 Fatty (change of) liver, not elsewhere classified
CPT/HCPCS: 36415; 80048; 82140; 85025